=== PATIENT | male | born 1960 | race Caucasian/White ===

== ENCOUNTER → 2018-08-29 | Day surgery (SDC) | payer BC ==
[~2018-08-29] MED LIST: ATENOLOL50 MG PO; FENTANYL CITRATE/PF 100MCG/2 ML INJ ONE; GLUCAGON FOR INJ 1 MG VIAL ONE; HYOSCYAMINE 0.125 MG TAB ONE; LIDOCAINE HCL 2% LOCAL INJ 5 ML SDV VIAL INJ ONE; LISINOPRIL10 MG PO; MIDAZOLAM HCL 2 MG/2 ML VIAL ONE; NEXIUM40 MG PO; NORCO 5-325 TA1 EACH PO; PREVACID30 MG PO; PROPOFOL IV EMULSION 10 MG/ML 20 ML VIAL ONE; TYLENOL # 31 EA PO
--- OUTSIDE RECORDS SUMMARY | 2018-08-29 11:58 | XMS REPORT | Continuity of Care Document ---
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 Role Phone [employer] Information [employer] Unavailable Unavailable Problems Problem Status Onset Date Classification Date Reported Comments Source UNK Active 07/19/2018 [facility] CHOLELITHIASIS WITH ACUTE ON CHRONIC CHO Active 07/19/2018 [facility] R10.11 - RIGHT UPPER QUADRANT PAIN Active 07/18/2018 [facility] [place] M25.50 - PAIN IN UNSPECIFIED JOINT Active 03/03/2016 [facility] [place] 720.2 - SACROILIITIS NE Active 10/17/2014 [facility] [place] Bronchitis Resolved Problem 08/19/2018 [facility] [place] GERD (Confirmed) Active Problem 08/19/2018 [facility] [place],[facility], [facility] Hypertension Active Problem 08/19/2018 [facility] [place] Pneumonia Resolved Problem 08/19/2018 [facility] [place],[facility] Medications Medication Details Route Status Patient Instructions Ordering Provider Order Date Source Atenolol 25 MG Oral Tablet 25 mg=1 tab, PO, Daily, 0 Refill(s) Active 07/24/2018 [facility] Miralax 17 gm, 1 pkt, Route: PO, Drug form: PWDR, BID, Dosing Weight 115.938, kg, Start date: 07/24/18 9:00:00 CDT, Duration: 30 day, Stop date: 08/22/18 17:00:00 CDTNotes: Dissolve in 8 oz of water or juice. (Same as: Miralax) Inactive 07/24/2018 [facility] Zosyn 3.375 gm, Route: IVPB, ABXQ8H, Dosing Weight 115.938, kg, CrCl >=20 ml/min infuse over 4 hours, Start date: 07/23/18 23:00:00 CDT, Duration: 5 day, Stop date: 07/28/18 15:00:00 CDT, ABX Indication: Surgical ProphylaxisNotes: (Same as: Zosyn) Dosing based on Piperacillin component MEDICATION WASTE Product Size: 3375 mg Product Wasted: ___ mg No Longer Active 07/24/2018 [facility] Atenolol 25 mg, 1 tab, Route: PO, Drug form: TAB, Daily, Dosing Weight 115.938, kg, Start date: 07/22/18 9:00:00 CDT, Duration: 30 day, Stop date: 08/20/18 9:00:00 CDTNotes: (Same As:Tenormin) No Longer Active 07/22/2018 [facility] Acetaminophen 650 mg, 2 tab, Route: PO, Drug form: TAB, Q6H, Dosing Weight 115.938, kg, PRN Pain 1-3/Temp > 100.4 F, Start date: 07/22/18 5:55:00 CDT, Duration: 30 day, Stop date: 08/21/18 5:54:00 CDTNotes: Do not exceed 4 gm/day. (Same as: Tylenol) No Longer Active 07/22/2018 [facility] ketOROLAC 30 mg/mL injectable solution 30 mg, 1 mL, Route: IVP, Drug form: INJ, Q6H, Dosing Weight 115.938, kg, PRN Pain Score 4-6, Start date: 07/22/18 5:53:00 CDT, Duration: 4 day, Stop date: 07/26/18 5:52:00 CDTNotes: (Same as:Toradol) IV bolus must be given >15 seconds. Give IM administration slowly and deeply into the muscle. Not for use > 4 days MEDICATION WASTE Product Size: 30 mg Product Wasted: ___ mg No Longer Active 07/22/2018 [facility] Famotidine 20 mg, 1 tab, Route: PO, Drug form: TAB, Q12H, Dosing Weight 115.938, kg, Start date: 07/21/18 21:00:00 CDT, Duration: 30 day, Stop date: 08/20/18 9:00:00 CDTNotes: (Same as: Pepcid) No Longer Active 07/22/2018 [facility] Lisinopril 40 mg, 2 tab, Route: PO, Drug form: TAB, Daily, Dosing Weight 115.938, kg, Priority: NOW, Start date: 07/21/18 19:52:00 CDT, Duration: 30 day, Stop date: 08/20/18 9:00:00 CDTNotes: (Same as: Prinivil, Zestril) No Longer Active 07/22/2018 [facility] Dilaudid 0.5 mg, 0.5 mL, Route: IVP, Drug form: INJ, Q2H, Dosing Weight 115.938, kg, PRN Pain Score 7-10, Start date: 07/21/18 18:00:00 CDT, Duration: 30 day, Stop date: 08/20/18 17:59:00 CDTNotes: Same as: Dilaudid No Longer Active 07/21/2018 [facility] Zosyn 3.375 gm, Route: IVPB, ABXQ8H, Dosing Weight 115.938, kg, CrCl >=20 ml/min infuse over 4 hours, Start date: 07/21/18 15:00:00 CDT, Duration: 1 day, Stop date: 07/22/18 7:00:00 CDT, ABX Indication: Surgical ProphylaxisNotes: (Same as: Zosyn) Dosing based on Piperacillin component MEDICATION WASTE Product Size: 3375 mg Product Wasted: ___ mg No Longer Active 07/21/2018 [facility] Acetaminophen 21.7 MG/ML / Hydrocodone Bitartrate 0.5 MG/ML Oral Solution 15 mL, Route: PO, Drug Form: SOLN, Dosing Weight 115.938, kg, Q4H, PRN Pain Score 4-6, Start date: 07/21/18 14:47:00 CDT, Duration: 30 day, Stop date: 08/20/18 14:46:00 CDTNotes: Do not exceed 4gm/day of acetaminophen. (Same as: [place] 325/7.5) No Longer Active 07/21/2018 [facility] Ondansetron 4 mg, 2 mL, Route: IVP, Drug form: INJ, Q12H, Dosing Weight 115.938, kg, PRN Nausea & Vomiting, Start date: 07/21/18 14:47:00 CDT, Duration: 30 day, Stop date: 08/20/18 14:46:00 CDTNotes: (Same as: Gagan) MEDICATION WASTE Product Size: 4 mg Product Wasted: ___ mg No Longer Active 07/21/2018 [facility] Calcium Chloride 0.0014 MEQ/ML / Potassium Chloride 0.004 MEQ/ML / Sodium Chloride 0.103 MEQ/ML / Sodium Lactate 0.028 MEQ/ML Injectable Solution 1,000 mL, Rate: 125 ml/hr, Infuse over: 8 hr, Route: IV, Dosing Weight 115.938 kg, Total Volume: 1,000, Start date: 07/21/18 14:47:00 CDT, Duration: 30 day, Stop date: 08/20/18 14:46:00 CDT, 2.4, m2 No Longer Active 07/21/2018 [facility] glycopyrrolate (ANES) Route: IV, Drug form: INJ, ONCE, Stop date: 07/21/18 14:17:00 CDT Inactive 07/21/2018 [facility] neostigmine (ANES) Route: IV, Drug form: INJ, ONCE, Stop date: 07/21/18 14:17:00 CDT Inactive 07/21/2018 [facility] Ondansetron 4 mg, Route: IVP, ONCE, Dosing Weight 115.938, kg, PRN Nausea & Vomiting, Start date: 07/21/18 13:38:00 CDT Inactive 07/21/2018 [facility] Flumazenil 0.2 mg, Route: IVP, PRN, Dosing Weight 115.938, kg, PRN Benzodiazepine Reversal, Initial dose, Start date: 07/21/18 13:38:00 CDT, Duration: 30 day, Stop date: 08/20/18 13:37:00 CDT Inactive 07/21/2018 [facility] Naloxone 0.4 mg, Route: IVP, Q2MIN, Dosing Weight 115.938, kg, PRN Narcotic Reversal, Start date: 07/21/18 13:38:00 CDT, Duration: 8 doses or times, Stop date: Limited # of times Inactive 07/21/2018 [facility] Hydromorphone 0.5 mg, Route: IVP, Q5Min, Dosing Weight 115.938, kg, PRN Pain Score 7-10, Start date: 07/21/18 13:38:00 CDT, Duration: 4 doses or times, Stop date: Limited # of times Inactive 07/21/2018 [facility] Fentanyl 25 microgram, Route: IVP, Q5Min, Dosing Weight 115.938, kg, PRN Pain Score 4-6, Priority: Routine, Start date: 07/21/18 13:38:00 CDT, Duration: 4 doses or times, Stop date: Limited # of times Inactive 07/21/2018 [facility] phenylephrine (ANES) Route: IV, Drug form: INJ, ONCE, Stop date: 07/21/18 13:13:00 CDT Inactive 07/21/2018 [facility] metoprolol (ANES) Route: IV, Drug form: INJ, ONCE, Stop date: 07/21/18 11:43:00 CDT Inactive 07/21/2018 [facility] ceFAZolin (ANES) Route: IV, Drug form: INJ, ONCE, Stop date: 07/21/18 11:33:00 CDT Inactive 07/21/2018 [facility] dexamethasone (ANES) Route: IV, Drug form: INJ, ONCE, Stop date: 07/21/18 11:33:00 CDT Inactive 07/21/2018 [facility] fentaNYL (ANES) Route: IV, Drug form: INJ, ONCE, Stop date: 07/21/18 11:22:00 CDT Inactive 07/21/2018 [facility] propofol (ANES) Route: IV, Drug form: INJ, ONCE, Stop date: 07/21/18 11:22:00 CDT Inactive 07/21/2018 [facility] rocuronium (ANES) Route: IV, Drug form: INJ, ONCE, Stop date: 07/21/18 11:22:00 CDT Inactive 07/21/2018 [facility] midazolam (ANES) Route: IV, Drug form: SOLN, ONCE, Stop date: 07/21/18 11:22:00 CDT Inactive 07/21/2018 [facility] Lactated Ringers Injection IV (ANES) 1000 mL Route: IV, Total Volume: 1,000, Start date: 07/21/18 10:10:00 CDT, Stop date: 07/21/18 11:10:00 CDT Inactive 07/21/2018 [facility] 72 HR Scopolamine 0.0139 MG/HR Transdermal Patch 1 patch, Route: TOP, Drug Form: ERFILM, Dosing Weight 115.938, kg, ONCE, Start date: 07/21/18 10:10:00 CDT, Stop date: 07/21/18 10:10:00 CDT Inactive 07/21/2018 [facility] Calcium Chloride 0.0014 MEQ/ML / Potassium Chloride 0.004 MEQ/ML / Sodium Chloride 0.103 MEQ/ML / Sodium Lactate 0.028 MEQ/ML Injectable Solution 1,000 mL, Rate: 25 ml/hr, Infuse over: 40 hr, Route: IV, Dosing Weight 115.938 kg, Total Volume: 1,000, Start date: 07/21/18 10:09:00 CDT, Duration: 30 day, Stop date: 08/20/18 10:08:00 CDT, 2.4, m2 Inactive 07/21/2018 [facility] Nexium PO, Daily, 0 Refill(s) Active 07/20/2018 [facility] lisinopril 40 mg oral tablet 40 mg=1 tab, PO, Daily, 0 Refill(s) Active 07/20/2018 [facility] Atenolol 25 MG Oral Tablet 25 mg=1 tab, PO, Daily, 0 Refill(s) Active 07/20/2018 [facility] Allergies, Adverse Reactions, Alerts Substance Category Reaction Severity Reaction type Status Date Reported Comments Source No Known Medication Allergies Assertion Drug allergy [facility] Immunizations No Data Provided for This Section Results Order Name Results Value Reference Range Date Interpretation Comments Source CHEM PANEL Calcium Lvl 8.4 8.5 - 10.5 07/24/2018 [facility] CHEM PANEL Total Protein 6.8 6.4 - 8.4 07/24/2018 [facility] CHEM PANEL Albumin Lvl 2.3 3.5 - 5.0 07/24/2018 [facility] CHEM PANEL eGFR 87 07/24/2018 Result Comment: The eGFR is calculated using the CKD-EPI formula. In most young, healthy individuals the eGFR will be >90 mL/min/1.73m2. The eGFR declines with age. An eGFR of 60-89 may be normal in some populations, particularly the elderly, for whom the CKD-EPI formula has not been extensively validated. Use of the eGFR is not recommended in the following populations:

Individuals with unstable creatinine concentrations, including patients and those with serious co-morbid conditions.

Patients with extremes in muscle mass or diet.

The data above are obtained from the National Kidney Disease Education Program (NKDEP) which additionally recommends that when the eGFR is used in patients with extremes of body mass index for purposes of drug dosing, the eGFR should be multiplied by the estimated BMI. [facility] CHEM PANEL Globulin 4.5 2.7 - 4.2 07/24/2018 [facility] CHEM PANEL AGAP 11.0 10.0 - 20.0 07/24/2018 [facility] CHEM PANEL B/C Ratio 19 6 - 25 07/24/2018 [facility] CHEM PANEL A/G Ratio 0.5 0.7 - 1.6 07/24/2018 [facility] CHEM PANEL ALT 88 0 - 65 07/24/2018 [facility] CHEM PANEL AST 25 0 - 37 07/24/2018 [facility] CHEM PANEL Alk Phos 96 39 - 136 07/24/2018 [facility] CHEM PANEL Bili Total 1.1 0.2 - 1.3 07/24/2018 [facility] CHEM PANEL Sodium Lvl 144 135 - 145 07/24/2018 [facility] CHEM PANEL Potassium Lvl 4.0 3.5 - 5.1 07/24/2018 [facility] CHEM PANEL BUN 18 7 - 22 07/24/2018 [facility] CHEM PANEL Creatinine Lvl 0.97 0.50 - 1.40 07/24/2018 [facility] CHEM PANEL Glucose Lvl 103 70 - 99 07/24/2018 [facility] CHEM PANEL Chloride Lvl 107 95 - 109 07/24/2018 [facility] CHEM PANEL CO2 30 24 - 32 07/24/2018 [facility] HEMATOLOGY MCHC 32.7 32.0 - 36.0 07/24/2018 [facility] HEMATOLOGY MCV 90.4 80.0 - 94.0 07/24/2018 [facility] HEMATOLOGY RDW 13.0 11.5 - 14.5 07/24/2018 [facility] HEMATOLOGY MCH 29.6 27.0 - 31.0 07/24/2018 [facility] HEMATOLOGY Hct 36.9 42.0 - 54.0 07/24/2018 [facility] HEMATOLOGY RBC 4.08 4.70 - 6.10 07/24/2018 [facility] HEMATOLOGY Hgb 12.1 14.0 - 18.0 07/24/2018 [facility] HEMATOLOGY MPV 8.9 7.4 - 10.4 07/24/2018 [facility] HEMATOLOGY Platelet 216 133 - 450 07/24/2018 [facility] HEMATOLOGY WBC 17.1 3.7 - 10.4 07/24/2018 [facility] CHEM PANEL eGFR 97 07/23/2018 Result Comment: The eGFR is calculated using the CKD-EPI formula. In most young, healthy individuals the eGFR will be >90 mL/min/1.73m2. The eGFR declines with age. An eGFR of 60-89 may be normal in some populations, particularly the elderly, for whom the CKD-EPI formula has not been extensively validated. Use of the eGFR is not recommended in the following populations:

Individuals with unstable creatinine concentrations, including patients and those with serious co-morbid conditions.

Patients with extremes in muscle mass or diet.

The data above are obtained from the National Kidney Disease Education Program (NKDEP) which additionally recommends that when the eGFR is used in patients with extremes of body mass index for purposes of drug dosing, the eGFR should be multiplied by the estimated BMI. [facility] CHEM PANEL A/G Ratio 0.6 0.7 - 1.6 07/23/2018 [facility] CHEM PANEL Globulin 4.3 2.7 - 4.2 07/23/2018 [facility] CHEM PANEL B/C Ratio 23 6 - 25 07/23/2018 [facility] CHEM PANEL AGAP 9.5 10.0 - 20.0 07/23/2018 [facility] CHEM PANEL Bili Total 1.1 0.2 - 1.3 07/23/2018 [facility] CHEM PANEL Alk Phos 104 39 - 136 07/23/2018 [facility] CHEM PANEL AST 31 0 - 37 07/23/2018 [facility] CHEM PANEL ALT 110 0 - 65 07/23/2018 [facility] CHEM PANEL Albumin Lvl 2.5 3.5 - 5.0 07/23/2018 [facility] CHEM PANEL Total Protein 6.8 6.4 - 8.4 07/23/2018 [facility] CHEM PANEL Calcium Lvl 8.3 8.5 - 10.5 07/23/2018 [facility] CHEM PANEL CO2 31 24 - 32 07/23/2018 [facility] CHEM PANEL Chloride Lvl 103 95 - 109 07/23/2018 [facility] CHEM PANEL Potassium Lvl 3.5 3.5 - 5.1 07/23/2018 [facility] CHEM PANEL Glucose Lvl 120 70 - 99 07/23/2018 [facility] CHEM PANEL Sodium Lvl 140 135 - 145 07/23/2018 [facility] CHEM PANEL Creatinine Lvl 0.84 0.50 - 1.40 07/23/2018 [facility] CHEM PANEL BUN 19 7 - 22 07/23/2018 [facility] HEMATOLOGY Eosinophils 0.2 0.0 - 4.0 07/23/2018 [facility] HEMATOLOGY Monocytes 5.8 2.0 - 12.0 07/23/[address] [facility] Segs 85.5 45.0 - 75.0 07/23/[address] [facility] Neutrophils # 16.6 1.5 - 8.1 07/23/[address] [facility] Lymphocytes 8.2 20.0 - 40.0 07/23/[address] [facility] Basophils # 0.1 0.0 - 0.2 07/23/[address] [facility] Basophils 0.3 0.0 - 1.0 07/23/[address] [facility] Monocytes # 1.1 0.0 - 0.8 07/23/[address] [facility] Lymphocytes # 1.6 1.0 - 5.5 07/23/[address] [facility] Hgb 12.7 14.0 - 18.0 07/23/[address] [facility] WBC 19.4 3.7 - 10.4 07/23/[address] [facility] Hct 38.3 42.0 - 54.0 07/23/[address] [facility] RBC 4.31 4.70 - 6.10 07/23/[address] [facility] MCH 29.5 27.0 - 31.0 07/23/[address] [facility] MCV 88.8 80.0 - 94.0 07/23/[address] [facility] MPV 8.5 7.4 - 10.4 07/23/[address] [facility] Platelet 193 133 - 450 07/23/[address] [facility] RDW 13.1 11.5 - 14.5 07/23/[address] [facility] MCHC 33.2 32.0 - 36.0 07/23/2018 [facility] CHEM PANEL eGFR 94 07/22/2018 Result Comment: The eGFR is calculated using the CKD-EPI formula. In most young, healthy individuals the eGFR will be >90 mL/min/1.73m2. The eGFR declines with age. An eGFR of 60-89 may be normal in some populations, particularly the elderly, for whom the CKD-EPI formula has not been extensively validated. Use of the eGFR is not recommended in the following populations:

Individuals with unstable creatinine concentrations, including patients and those with serious co-morbid conditions.

Patients with extremes in muscle mass or diet.

The data above are obtained from the National Kidney Disease Education Program (NKDEP) which additionally recommends that when the eGFR is used in patients with extremes of body mass index for purposes of drug dosing, the eGFR should be multiplied by the estimated BMI. [facility] CHEM PANEL AST 231 0 - 37 07/22/2018 [facility] CHEM PANEL Alk Phos 161 39 - 136 07/22/2018 [facility] CHEM PANEL Bili Total 1.5 0.2 - 1.3 07/22/2018 [facility] CHEM PANEL Calcium Lvl 8.1 8.5 - 10.5 07/22/2018 [facility] CHEM PANEL Total Protein 7.2 6.4 - 8.4 07/22/2018 [facility] CHEM PANEL Albumin Lvl 3.2 3.5 - 5.0 07/22/2018 [facility] CHEM PANEL Creatinine Lvl 0.91 0.50 - 1.40 07/22/2018 [facility] CHEM PANEL Sodium Lvl 140 135 - 145 07/22/2018 [facility] CHEM PANEL Potassium Lvl 3.7 3.5 - 5.1 07/22/2018 [facility] CHEM PANEL Chloride Lvl 103 95 - 109 07/22/2018 [facility] CHEM PANEL CO2 28 24 - 32 07/22/2018 [facility] CHEM PANEL Glucose Lvl 135 70 - 99 07/22/2018 [facility] CHEM PANEL BUN 11 7 - 22 07/22/2018 [facility] CHEM PANEL ALT 295 0 - 65 07/22/2018 [facility] CHEM PANEL A/G Ratio 0.8 0.7 - 1.6 07/22/2018 [facility] CHEM PANEL AGAP 12.7 10.0 - 20.0 07/22/2018 [facility] CHEM PANEL B/C Ratio 12 6 - 25 07/22/2018 [facility] CHEM PANEL Globulin 4.0 2.7 - 4.2 07/22/2018 [facility] HEMATOLOGY Monocytes # 1.1 0.0 - 0.8 07/22/[address] [facility] Lymphocytes # 1.6 1.0 - 5.5 07/22/[address] [facility] Segs 83.7 45.0 - 75.0 07/22/[address] [facility] Lymphocytes 9.6 20.0 - 40.0 07/22/[address] [facility] Basophils 0.1 0.0 - 1.0 07/22/[address] [facility] Neutrophils # 14.1 1.5 - 8.1 07/22/[address] [facility] Monocytes 6.6 2.0 - 12.0 07/22/[address] [facility] MCHC 33.1 32.0 - 36.0 07/22/[address] [facility] RDW 12.9 11.5 - 14.5 07/22/[address] [facility] MPV 8.8 7.4 - 10.4 07/22/[address] [facility] Platelet 234 133 - 450 07/22/[address] [facility] MCV 88.8 80.0 - 94.0 07/22/[address] [facility] Hgb 14.5 14.0 - 18.0 07/22/[address] [facility] RBC 4.94 4.70 - 6.10 07/22/[address] [facility] WBC 16.8 3.7 - 10.4 07/22/[address] [facility] Hct 43.9 42.0 - 54.0 07/22/[address] [facility] MCH 29.4 27.0 - 31.0 07/22/2018 [facility] Pathology Reports No Data Provided for This Section Diagnostic Reports Report Value Date Source Chest 2 views DX EXAM: XR CHEST 2 VIEWS DATE: 08/17/2018 9:48 CDT INDICATION: - K44.9 Diaphragmatic hernia without obstruction or gangrene COMPARISON: 07/24/2018 TECHNIQUE: PA and lateral chest radiographs FINDINGS: Left lower lobe pneumonia and small left pleural effusion have resolved. No lung parenchymal or pleural abnormalities are seen. Saundra and pulmonary vasculature are normal. Cardiomediastinal silhouette is normal in appearance. No acute bony abnormality is identified. Multilevel spondylosis is seen in the thoracic spine. IMPRESSION: No acute cardiopulmonary abnormality. Resolution of left lower lobe pneumonia and small left pleural effusion. 08/17/2018 [facility] Chest 2 views DX Clinical Indication: - r/o abnormalities Comparison: None FINDINGS: PA and lateral chest radiographs were obtained. MEDIASTINUM: The cardiac silhouette is normal in size. The aorta is unremarkable. LUNGS: Lung volumes are maintained. The left lung demonstrates opacity in the retrocardiac region which is overlying the spine on lateral view. The right lung is clear. There are no pneumothoraces. There is blunting left costophrenic angle. BONES: The visualized osseous structures are unremarkable. IMPRESSION: Left lower lobe infiltrate and small left effusion. SL: [id number] 07/24/2018 [facility] Abdomen AP DX Clinical Indication: - r/o abnormalities Comparison: None FINDINGS: The AP supine view of the abdomen shows a non-obstructive bowel gas pattern. There is no abnormal dilatation of bowel loops. There is no pneumatosis or mass effect. There is no gross evidence for pneumoperitoneum. There are no radiopaque densities noted. There are no clinically significant osseous abnormalities noted. There are skin pavel noted in the bilateral lower quadrants, epigastrium, and bilateral flank. There are surgical clips in the gallbladder fossa. IMPRESSION: 1. Unremarkable abdomen. SL: [id number] 07/24/2018 [facility] RUQ US EXAM: US ABDOMEN RIGHT UPPER QUADRANT INDICATION: - R10.11 Right upper quadrant pain COMPARISON: 01/08/2012 TECHNIQUE: Multiplanar grayscale and color Doppler ultrasound of the right upper quadrant of the abdomen. FINDINGS: Liver: Craniocaudal length: 15.6 cm. Echogenicity: Unremarkable Surface: Unremarkable Mass: None. Portal vein: Hepatopetal in flow. Unremarkable in size. Gallbladder: A few shadowing gallstones are seen. Wall Thickness: 0.5 cm. Pericholecystic fluid: None. Sonographic Luna sign: Positive Bile ducts: Common bile duct : 0.6 cm. Intrahepatic ducts: Unremarkable Pancreas: Not adequately seen Right kidney: Size: 10.4 x 5.3 x 6.4 cm. Cortical thickness measures 2.2 cm. Hydronephrosis: None. Echogenicity: Unremarkable Calculi/Cysts/Masses: None. Ascites: None. IMPRESSION: 1. Cholelithiasis with gallbladder wall thickening and positive sonographic Luna's sign. However, no biliary duct dilation. Correlate for cholecystitis. 07/19/2018 [facility] Brain wo contrast CT EXAM: CT BRAIN DATE: 12/18/2016 at 10:00 CLINICAL INFORMATION: - R51 Headache COMPARISON: None TECHNIQUE: Axial images of the brain were obtained from the skull base through the vertex without contrast material administration. DLP: 654.34 mGycm DISCUSSION: Hypodensities in the supratentorial white matter consistent with small vessel disease. No acute hemorrhage, hydrocephalus or midline shift. Paranasal sinuses and mastoid air cells are clear. No acute bony lesions. IMPRESSION: Small vessel disease. No acute intracranial abnormality 12/18/2016 [facility] Spine lumbar wo contrast MRI MRI LUMBAR SPINE WITHOUT CONTRAST 03/04/2016 8:12 AM [facility] COMPARISON: 08/08/2014 radiograph exam. TECHNIQUE: Sagittal T1, sagittal T2 with fat saturation, axial T1 and axial T2 images were obtained. No intravenous gadolinium was given. FINDINGS: Lumbosacral junction transitional vertebra is identified, and is labeled as 'S1'. Please see the sagittal images for the numbering system used. . The conus medullaris terminates at the L1-L2 level. T11-T12 moderate ligamenta flava redundancy with mild central canal stenosis are present. T12-L1: Unremarkable. L1-L2: Right anterolateral osteophytes. No central canal or foraminal stenosis. L2-L3: Disc desiccation with 3 mm disc bulge and posterior annular fissure. Mild central canal stenosis. Mild left foraminal stenosis. The lateral extraforaminal disc osteophyte complexes are present. No significant mass effect on exiting nerve roots L3-L4: 3.9 mm shallow central disc protrusion is present with mild to moderate thecal sac stenosis, which measures 7.8 mm in AP dimension. Mild bilateral foraminal stenosis due to disc osteophyte complex encroachment is present. L4-L5: Approximately 2 mm disc bulge with mild central canal stenosis. Moderate left foraminal stenosis and mild right foraminal stenosis due to disc osteophyte complex encroachment, with mild mass effect on the left L4 exiting nerve root. L5-S1: 3 mm posterior disc osteophyte complex without significant thecal sac stenosis. Moderate bilateral foraminal stenosis due to bilateral foraminal and extraforaminal osteophytes with mild mass effect on the bilateral L5 exiting nerve roots. Gallstone is present within the gallbladder neck. IMPRESSION: 1. Cholelithiasis. 2. Lumbosacral junction transitional vertebra is identified, and is labeled as 'S1'. Please see the sagittal images for the numbering system used. 3. L2-L3 mild central canal stenosis and mild left foraminal stenosis. 4. L3-L4 central disc protrusion with mild to moderate central canal stenosis. Mild bilateral foraminal stenosis. 5. L4-L5 mild central canal stenosis and moderate left foraminal stenosis with mild mass effect on left L4 nerve root. 5. L5-S1 moderate bilateral foraminal stenosis with mild mass effect on bilateral L5 nerve roots. Findings were called to Dr. Aaron on 03/04/2016 11:42 AM HAT [employer]ESSER. 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 There is a symmetric appearance of the joints. 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 Small anterior implant osteophytes are seen at multiple levels. AP alignment is normal and vertebral body heights are maintained. No pars fracture is evident on radiograph. IMPRESSION: Degenerative change as above. 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 FINDINGS: No fracture is seen. Alignment is normal. Joint spaces are maintained. No evidence of osseous erosion or soft tissue edema. IMPRESSION: No acute abnormality. 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 FINDINGS: Calcaneal enthesophytes are noted bilaterally. There is no evidence of fracture or malalignment. No soft tissue edema is seen. There is minimal joint space narrowing of the bilateral first MTP joint. IMPRESSION: No acute abnormality. 08/08/2014 MIGUELITO Sue Consultation Notes No Data Provided for This Section Discharge Summaries No Data Provided for This Section History and Physicals No Data Provided for This Section Vital Signs Vital Sign Value Date Comments Source Systolic (mm Hg) 151 07/24/2018 [facility] Diastolic (mm Hg) 83 07/24/2018 [facility] Heart Rate 105 07/24/2018 [facility] Temperature Oral (F) 98.8 F 07/24/2018 [facility] Respitory Rate 18 07/24/2018 [facility] Respitory Rate 16 07/24/2018 [facility] Respitory Rate 18 07/24/2018 [facility] Temperature Oral (F) 99.3 F 07/24/2018 [facility] Heart Rate 112 07/24/2018 [facility] Systolic (mm Hg) 146 07/24/2018 [facility] Diastolic (mm Hg) 90 07/24/2018 [facility] Systolic (mm Hg) 139 07/24/2018 [facility] Diastolic (mm Hg) 84 07/24/2018 [facility] Heart Rate 120 07/24/2018 [facility] Temperature Oral (F) 99.8 F 07/24/2018 [facility] BMI Calculated 37.75 07/20/2018 [facility] Weight 115.938 07/20/2018 [facility] Height 175.26 cm 07/20/2018 [facility] Encounters Location Location Details Encounter Type Encounter Number Reason For Visit Attending Provider ADM Date DC Date Status Source [facility] [place] [facility] [id number] Madhuri Gaston 08/08/2014 08/09/2014 [facility] [place] [facility] [place] [facility] [id number] Robert Aaron 03/04/2016 03/05/2016 [facility] [place] [facility] [place] [facility] [id number] Adelfo Luna 12/18/2016 12/19/2016 [facility] [facility] [place] [facility] [id number] Vianney Desai 07/19/2018 07/20/2018 [facility] [facility] Observation [id number] Anuj Vera 07/21/2018 07/24/2018 [facility] [place] [facility] [id number] Robert Aaron 08/17/2018 08/18/2018 [facility] [place] Procedures No Data Provided for This Section Assessment and Plan Assessment and Plan Date Source Extracted from:Title: Surgery Staff Note Author: Anuj Vera DO Date: 07/24/18 Discharge Summary [facility] Completed: Jul, 09:59 by Anuj Vera DO RM: [address] - [address]W, [address] C2B TAL MCKINLEY 57y (: 1960) M Attending: Anuj Vera DO Service: Surgery Reason for Admission: CHOLELITHIASIS WITH ACUTE ON CHRONIC CHOLANGITIS Working DRG: Code status: Full Code Current diet: Isolation: No Isolation/Standard Precautions Allergies: No Known Medication Allergies Brief hospital course Pt admitted PO Lap Traci 07/21/2018 Pt had PO fevers, Elevated WBC and cough. POD#2 cough persisted; CXR + KUB ordered. See below. Today he is w/o complaints, tolerating regular diet, labs [wbc and LFTs] are trending down, he is cleared for d/c home. 24hr Labs 07/24 0632 Sodium Lvl 144 Potassium Lvl 4.0 Chloride Lvl 107 CO2 30 AGAP 11.0 Glucose Lvl 103 H Creatinine Lvl 0.97 BUN 18 B/C Ratio 19 Total Protein 6.8 Albumin Lvl 2.3 L Globulin 4.5 H A/G Ratio 0.5 L Calcium Lvl 8.4 L ALT 88 H AST 25 Alk Phos 96 Bili Total 1.1 eGFR 87 WBC 17.1 H RBC 4.08 L Hgb 12.1 L Hct 36.9 L MCV 90.4 MCH 29.6 MCHC 32.7 RDW 13.0 Platelet 216 MPV 8.9 07/23 1736 Sodium Lvl 140 Potassium Lvl 3.5 Chloride Lvl 103 CO2 31 AGAP 9.5 L Glucose Lvl 120 H Creatinine Lvl 0.84 BUN 19 B/C Ratio 23 Total Protein 6.8 Albumin Lvl 2.5 L Globulin 4.3 H A/G Ratio 0.6 L Calcium Lvl 8.3 L ALT 110 H AST 31 Alk Phos 104 Bili Total 1.1 eGFR 97 WBC 19.4 H RBC 4.31 L Hgb 12.7 L Hct 38.3 L MCV 88.8 MCH 29.5 MCHC 33.2 RDW 13.1 Platelet 193 MPV 8.5 Segs 85.5 H Monocytes 5.8 Lymphocytes 8.2 L Eosinophils 0.2 Basophils 0.3 Neutrophils # 16.6 H Lymphocytes # 1.6 Monocytes # 1.1 H Basophils # 0.1 07/23 1637 POC Performing Locatio See Note Glucose POC 119 H 07/23 1159 POC Performing Locatio See Note Glucose POC 145 H Result type: Abdomen AP DX Result date: 07/24/2018 03:26 CDT Result status: Modified Result title: ABDOMEN AP DX Performed by: Tavon Hernandez MD on 07/24/2018 03:30 CDT Signed by: Tavon Hernandez MD on 07/24/2018 03:31 CDT Encounter info: [id number], [facility], Observation, 07/21/2018 - * Final Report * Reason For Exam Radiology Report Clinical Indication: - r/o abnormalities Comparison: None FINDINGS: The AP supine view of the abdomen shows a non-obstructive bowel gas pattern. There is no abnormal dilatation of bowel loops. There is no pneumatosis or mass effect. There is no gross evidence for pneumoperitoneum. There are no radiopaque densities noted. There are no clinically significant osseous abnormalities noted. There are skin pavel noted in the bilateral lower quadrants, epigastrium, and bilateral flank. There are surgical clips in the gallbladder fossa. IMPRESSION: 1. Unremarkable abdomen. SL: [id number] Signature Line - - Read by: Tavon Hernandez MD Dictated Date/time: 07/24/18 03:30 Electronically Signed by: Tavon Hernandez MD 07/24/18 03:31 FINAL REPORT URL This document has an image Vitals Tmp(F) Pulse BP RR SpO2 FIO2 07/24 08:18 98.8 105 151/83 18 92 --- 07/24 07:08 ---- --- ----- 16 93 --- 07/24 03:44 99.3 112 146/90 18 92 --- 07/23 23:43 99.8 120 139/84 18 92 --- 07/23 20:22 ---- --- ----- 14 93 21% 24 Hr Tmax: 99.8F (37.67c) at 07/23 23:43 Vital Signs are the last 5 in the past 48 hours. Date Wt(kg) Wt(lb) Ht(cm) Ht(in) Method 07/20 (initial) 115.94 255.06 Measured 06/12 175.26 69.00 Stated I&O Record In Out Bal 07/23 24hr Tot 122 0 122 07/22 24hr Tot 637 700 -63 Medications (11) Active Scheduled Meds (5): 07/22/18 atenolol 25 mg PO Daily 07/21/18 famotidine 20 mg PO Q12H 07/21/18 lisinopril 40 mg PO Daily 07/23/18 piperacillin-tazobactam + Sodium Chloride 0.9% IV 100 mL (Zosyn + Sodium Chloride 0.9% IV 100 mL) 3.375 gm IVPB ABXQ8H 25 ml/hr 07/24/18 polyethylene glycol 3350 (MiraLax) 17 gm PO BID Unscheduled Meds: None PRN Meds (5): 07/21/18 acetaminophen-hydrocodone (acetaminophen-hydrocodone 325 mg-7.5 mg/15 mL oral solution) 15 mL PO Q4H 07/22/18 acetaminophen 650 mg PO Q6H 07/21/18 hydromorphone (Dilaudid) 0.5 mg IVP Q2H 07/22/18 ketOROLAC (ketOROLAC 30 mg/mL injectable solution) 30 mg IVP Q6H 07/21/18 ondansetron 4 mg IVP Q12H One Time Meds: None Continuous Infusions (1): 07/21/18 Lactated Ringers Injection IV 1,000 mL 1,000 mL 125 ml/hr ASSESSMENT and EXAM: S/P Lap Traci for Acute Cholecystitis CXR and KUB benign PLAN and TREATMENT Discharge Home Rx given Augmentin Toradol F/U Wednesday Extracted from:Title: Surgery Staff Note Author: Anuj Vera DO Date: 07/23/18 Progress Note - Daily [facility] Completed: Wednesday, JUL 23, 2018, 13:01 by Anuj Vera DO RM: [address], [address] TAL MCKINLEY 57y (: 1960) M Attending: Anuj Vera DO Service: Surgery Reason for Admission: CHOLELITHIASIS WITH ACUTE ON CHRONIC CHOLANGITIS Working DRG: Code status: Full Code Current diet: Isolation: No Isolation/Standard Precautions Allergies: No Known Medication Allergies SUBJECTIVE Feeling Better New onset Cough pain meds helpful but do not last. OBJECTIVE Gen: in NAD Abd: obese Skin: incisions c/d/i 24hr Labs 07/23 1159 POC Performing Locatio See Note Glucose POC 145 H 07/23 0816 POC Performing Locatio See Note Glucose POC 144 H Vitals Tmp(F) Pulse BP RR SpO2 FIO2 07/23 12:00 98.4 110 151/96 18 93 --- 07/23 08:16 ---- --- 134/94 18 92 --- 07/23 07:55 ---- --- ----- 16 92 --- 07/23 04:05 98.9 101 125/81 20 90 --- 07/22 23:29 98.6 96 129/77 20 92 --- 24 Hr Tmax: 100.2F (37.89c) at 07/22 23:24 Vital Signs are the last 5 in the past 48 hours. Date Wt(kg) Wt(lb) Ht(cm) Ht(in) Method 07/20 (initial) 115.94 255.06 Measured 07/20 175.26 69.00 Stated I&O Record In Out Bal 07/23 24hr Tot 2 0 2 07/22 24hr Tot 637 700 -63 Medications (9) Active Scheduled Meds (3): 07/22/18 atenolol 25 mg PO Daily 07/21/18 famotidine 20 mg PO Q12H 07/21/18 lisinopril 40 mg PO Daily Unscheduled Meds: None PRN Meds (5): 07/21/18 acetaminophen-hydrocodone (acetaminophen-hydrocodone 325 mg-7.5 mg/15 mL oral solution) 15 mL PO Q4H 07/22/18 acetaminophen 650 mg PO Q6H 07/21/18 hydromorphone (Dilaudid) 0.5 mg IVP Q2H 07/22/18 ketOROLAC (ketOROLAC 30 mg/mL injectable solution) 30 mg IVP Q6H 07/21/18 ondansetron 4 mg IVP Q12H One Time Meds: None Continuous Infusions (1): 07/21/18 Lactated Ringers Injection IV 1,000 mL 1,000 mL 125 ml/hr ASSESSMENT and EXAM POD#2 Lap Cholecystectomy PLAN and TREATMENT Afebrile x 24 hours. Last temp elevation: 100.3'F 0200 today Await labs 07/24/2018 [place] Plan of Care No Data Provided for This Section Social History Social History Date Source Social History TypeResponse Employment/School Status: Employed. Alcohol Current, Type Liquor. Frequency: 1-2 times per month. Last use: Jun, 2018. Smoking Status Current every day smoker; Type: snuff; Exposure to Tobacco Smoke None; Cigarette Smoking Last 365 Days Yes; Reg Smoking Cessation Counseling No entered on: 07/20/18 07/20/2018 MIGUELITO Sue Social History TypeResponse Employment/School Status: Employed. Alcohol Current, Type Liquor. Frequency: 1-2 times per month. Last use: Jun, 2018. Smoking Status Current every day smoker; Type: snuff; Exposure to Tobacco Smoke None; Cigarette Smoking Last 365 Days Yes; Reg Smoking Cessation Counseling No entered on: 07/20/18 07/20/2018 MIGUELITO Noel Social History TypeResponse Employment/School Status: Employed. Alcohol Current, Type Liquor. Frequency: 1-2 times per month. Last use: Jun, 2018. Smoking Status Current every day smoker; Type: snuff; Exposure to Tobacco Smoke None; Cigarette Smoking Last 365 Days Yes; Reg Smoking Cessation Counseling No entered on: 07/20/18 07/20/2018 [place] Family History No Data Provided for This Section Advance Directives No Data Provided for This Section Functional Status No Data Provided for This Section
--- OUTSIDE RECORDS SUMMARY | 2018-08-29 11:58 | XMS REPORT | Summary of Care ---
Author Author [facility] Organization [facility] Address Unknown Phone Unavailable Encounter NADIA Garcia(PETAR) [id number] Date(s): 07/21/18 - 07/24/18 [facility] [address] [place] [address]- [phone] Discharge Disposition: Home or Self Care Attending Physician: Anuj Vera DO Admitting Physician: Aunj Vera DO Referring Physician: Anuj Vera DO Vital Signs 1 2 3 Most recent to oldest [Reference Range]: 175.26 cm (07/20/18 12:34 PM) Height 98.8 DegF (07/24/18 8:18 AM) 99.3 DegF *HI* (07/24/18 3:44 AM) 99.8 DegF *HI* (07/23/18 11:43 PM) Temperature Oral [96.4-99.1 DegF] 151/83 mmHg *HI* (07/24/18 8:18 AM) 146/90 mmHg *HI* (07/24/18 3:44 AM) 139/84 mmHg (07/23/18 11:43 PM) Blood Pressure [90-140/60-90 mmHg] 18 BRMIN (07/24/18 8:18 AM) 16 BRMIN (07/24/18 7:08 AM) 18 BRMIN (07/24/18 3:44 AM) Respiratory Rate [14-20 BRMIN] 105 bpm *HI* (07/24/18 8:18 AM) 112 bpm *HI* (07/24/18 3:44 AM) 120 bpm *HI* (07/23/18 11:43 PM) Peripheral Pulse Rate [60-100 bpm] 115.938 kg (07/20/18 12:34 PM) Weight 37.75 m2 (07/20/18 12:34 PM) Body Mass Index Problem List Condition Effective Dates Status Health Status Informant Bronchitis(Confirmed Resolved ) GERD Active (gastroesophageal reflux disease)(Confirmed) Hypertension(Confirm Active ed) Pneumonia(Confirmed) Resolved Allergies, Adverse Reactions, Alerts No Known Medication Allergies Medications acetaminophen 650 mg, 2 tab, Route: PO, Drug form: TAB, Q6H, Dosing Weight 115.938, kg, PRN Pa in 1-3/Temp > 100.4 F, Start date: 07/22/18 5:55:00 CDT, Duration: 30 day, Stop date: 08/21/18 5:54:00 CDT Notes: Do not exceed 4 gm/day. (Same as: Tylenol) Start Date: 07/22/18 Stop Date: 07/24/18 Status: Discontinued acetaminophen-hydrocodone 325 mg-7.5 mg/15 mL oral solution 15 mL, Route: PO, Drug Form: SOLN, Dosing Weight 115.938, kg, Q4H, PRN Pain Scor e 4-6, Start date: 07/21/18 14:47:00 CDT, Duration: 30 day, Stop date: 08/20/18 14:46:00 CDT Notes: Do not exceed 4gm/day of acetaminophen. (Same as: [place] 325/7.5) Start Date: 07/21/18 Stop Date: 07/24/18 Status: Discontinued ANES fentaNYL 25 microgram, Route: IVP, Q5Min, Dosing Weight 115.938, kg, PRN Pain Score 4-6, Priority: Routine, Start date: 07/21/18 13:38:00 CDT, Duration: 4 doses or times , Stop date: Limited # of times Start Date: 07/21/18 Stop Date: 07/21/18 Status: Completed ANES flumazenil 0.2 mg, Route: IVP, PRN, Dosing Weight 115.938, kg, PRN Benzodiazepine Reversal, Initial dose, Start date: 07/21/18 13:38:00 CDT, Duration: 30 day, Stop date: 0 08/20/18 13:37:00 CDT Start Date: 07/21/18 Stop Date: 07/21/18 Status: Discontinued ANES HYDROmorphone 0.5 mg, Route: IVP, Q5Min, Dosing Weight 115.938, kg, PRN Pain Score 7-10, Start date: 07/21/18 13:38:00 CDT, Duration: 4 doses or times, Stop date: Limited # of times Start Date: 07/21/18 Stop Date: 07/21/18 Status: Completed ANES naloxone 0.4 mg, Route: IVP, Q2MIN, Dosing Weight 115.938, kg, PRN Narcotic Reversal, Sta rt date: 07/21/18 13:38:00 CDT, Duration: 8 doses or times, Stop date: Limited # of times Start Date: 07/21/18 Stop Date: 07/21/18 Status: Discontinued ANES ondansetron 4 mg, Route: IVP, ONCE, Dosing Weight 115.938, kg, PRN Nausea & Vomiting, Start date: 07/21/18 13:38:00 CDT Start Date: 07/21/18 Stop Date: 07/21/18 Status: Discontinued atenolol 25 mg, 1 tab, Route: PO, Drug form: TAB, Daily, Dosing Weight 115.938, kg, Start date: 07/22/18 9:00:00 CDT, Duration: 30 day, Stop date: 08/20/18 9:00:00 CDT Notes: (Same As:Tenormin) Start Date: 07/22/18 Stop Date: 07/24/18 Status: Discontinued atenolol 25 mg oral tablet 25 mg=1 tab, PO, Daily, 0 Refill(s) Start Date: 07/24/18 Status: Ordered atenolol 25 mg oral tablet 25 mg=1 tab, PO, Daily, 0 Refill(s) Start Date: 07/20/18 Status: Ordered ceFAZolin (ANES) Route: IV, Drug form: INJ, ONCE, Stop date: 07/21/18 11:33:00 CDT Start Date: 07/21/18 Stop Date: 07/21/18 Status: Completed dexamethasone (ANES) Route: IV, Drug form: INJ, ONCE, Stop date: 07/21/18 11:33:00 CDT Start Date: 07/21/18 Stop Date: 07/21/18 Status: Completed Dilaudid 0.5 mg, 0.5 mL, Route: IVP, Drug form: INJ, Q2H, Dosing Weight 115.938, kg, PRN Pain Score 7-10, Start date: 07/21/18 18:00:00 CDT, Duration: 30 day, Stop date: 08/20/18 17:59:00 CDT Notes: Same as: Dilaudid Start Date: 07/21/18 Stop Date: 07/24/18 Status: Discontinued famotidine 20 mg, 1 tab, Route: PO, Drug form: TAB, Q12H, Dosing Weight 115.938, kg, Start date: 07/21/18 21:00:00 CDT, Duration: 30 day, Stop date: 08/20/18 9:00:00 CDT Notes: (Same as: Pepcid) Start Date: 07/21/18 Stop Date: 07/24/18 Status: Discontinued fentaNYL (ANES) Route: IV, Drug form: INJ, ONCE, Stop date: 07/21/18 11:22:00 CDT Start Date: 07/21/18 Stop Date: 07/21/18 Status: Completed glycopyrrolate (ANES) Route: IV, Drug form: INJ, ONCE, Stop date: 07/21/18 14:17:00 CDT Start Date: 07/21/18 Stop Date: 07/21/18 Status: Completed ketOROLAC 30 mg/mL injectable solution 30 mg, 1 mL, Route: IVP, Drug form: INJ, Q6H, Dosing Weight 115.938, kg, PRN Clifford n Score 4-6, Start date: 07/22/18 5:53:00 CDT, Duration: 4 day, Stop date: 07/26 5:52:00 CDT Notes: (Same as:Toradol) IV bolus must be given >15 seconds. Give IM administration slowly and deeply into the muscle.Not for use > 4 days MEDICATION WASTE Product Size: 30 mgProduct Wasted: ___ mg Start Date: 07/22/18 Stop Date: 07/24/18 Status: Discontinued Lactated Ringers Injection IV (ANES) 1000 mL Route: IV, Total Volume: 1,000, Start date: 07/21/18 10:10:00 CDT, Stop date: 11:10:00 CDT Start Date: 07/21/18 Stop Date: 07/21/18 Status: Completed Lactated Ringers Injection IV 1,000 mL 1,000 mL, Rate: 125 ml/hr, Infuse over: 8 hr, Route: IV, Dosing Weight 115.938 k g, Total Volume: 1,000, Start date: 07/21/18 14:47:00 CDT, Duration: 30 day, Sto p date: 08/20/18 14:46:00 CDT, 2.4, m2 Start Date: 07/21/18 Stop Date: 07/24/18 Status: Discontinued Lactated Ringers Injection IV 1000 mL 1,000 mL, Rate: 25 ml/hr, Infuse over: 40 hr, Route: IV, Dosing Weight 115.938 k g, Total Volume: 1,000, Start date: 07/21/18 10:09:00 CDT, Duration: 30 day, Sto p date: 08/20/18 10:08:00 CDT, 2.4, m2 Start Date: 07/21/18 Stop Date: 07/21/18 Status: Discontinued lisinopril 40 mg, 2 tab, Route: PO, Drug form: TAB, Daily, Dosing Weight 115.938, kg, Prior ity: NOW, Start date: 07/21/18 19:52:00 CDT, Duration: 30 day, Stop date: 9:00:00 CDT Notes: (Same as: Prinivil, Zestril) Start Date: 07/21/18 Stop Date: 07/24/18 Status: Discontinued lisinopril 40 mg oral tablet 40 mg=1 tab, PO, Daily, 0 Refill(s) Start Date: 07/20/18 Status: Ordered metoprolol (ANES) Route: IV, Drug form: INJ, ONCE, Stop date: 07/21/18 11:43:00 CDT Start Date: 07/21/18 Stop Date: 07/21/18 Status: Completed midazolam (ANES) Route: IV, Drug form: SOLN, ONCE, Stop date: 07/21/18 11:22:00 CDT Start Date: 07/21/18 Stop Date: 07/21/18 Status: Completed MiraLax 17 gm, 1 pkt, Route: PO, Drug form: PWDR, BID, Dosing Weight 115.938, kg, Start date: 07/24/18 9:00:00 CDT, Duration: 30 day, Stop date: 08/22/18 17:00:00 CDT Notes: Dissolve in 8 oz of water or juice.(Same as: Miralax) Start Date: 07/24/18 Stop Date: 07/24/18 Status: Discontinued neostigmine (ANES) Route: IV, Drug form: INJ, ONCE, Stop date: 07/21/18 14:17:00 CDT Start Date: 07/21/18 Stop Date: 07/21/18 Status: Completed NexIUM PO, Daily, 0 Refill(s) Start Date: 07/20/18 Status: Ordered ondansetron 4 mg, 2 mL, Route: IVP, Drug form: INJ, Q12H, Dosing Weight 115.938, kg, PRN Geovanni sea & Vomiting, Start date: 07/21/18 14:47:00 CDT, Duration: 30 day, Stop date: 08/20/18 14:46:00 CDT Notes: (Same as: Zofran) MEDICATION WASTE Product Size: 4 mgProduct Was nia: ___ mg Start Date: 07/21/18 Stop Date: 07/24/18 Status: Discontinued phenylephrine (ANES) Route: IV, Drug form: INJ, ONCE, Stop date: 07/21/18 13:13:00 CDT Start Date: 07/21/18 Stop Date: 07/21/18 Status: Completed propofol (ANES) Route: IV, Drug form: INJ, ONCE, Stop date: 07/21/18 11:22:00 CDT Start Date: 07/21/18 Stop Date: 07/21/18 Status: Completed rocuronium (ANES) Route: IV, Drug form: INJ, ONCE, Stop date: 07/21/18 11:22:00 CDT Start Date: 07/21/18 Stop Date: 07/21/18 Status: Completed scopolamine 1.5 mg transdermal film 1 patch, Route: TOP, Drug Form: ERFILM, Dosing Weight 115.938, kg, ONCE, Start d ate: 07/21/18 10:10:00 CDT, Stop date: 07/21/18 10:10:00 CDT Start Date: 07/21/18 Stop Date: 07/21/18 Status: Completed Zosyn + Sodium Chloride 0.9% IV 100 mL 3.375 gm, Route: IVPB, ABXQ8H, Dosing Weight 115.938, kg, CrCl >=20 ml/min infuse over 4 hours, Start date: 07/21/18 15:00:00 CDT, Duration: 1 day, Stop date: 07/22/18 7:00:00 CDT, ABX Indication: Surgical Prophylaxis Notes: (Same as: Zosyn)Dosing based on Piperacillin component MEDICATION WA FAYE Product Size: 3375 mgProduct Wasted: ___ mg Start Date: 07/21/18 Stop Date: 07/22/18 Status: Completed Zosyn + Sodium Chloride 0.9% IV 100 mL 3.375 gm, Route: IVPB, ABXQ8H, Dosing Weight 115.938, kg, CrCl >=20 ml/min infuse over 4 hours, Start date: 07/23/18 23:00:00 CDT, Duration: 5 day, Stop date: 07/28/18 15:00:00 CDT, ABX Indication: Surgical Prophylaxis Notes: (Same as: Zosyn)Dosing based on Piperacillin component MEDICATION WA FAYE Product Size: 3375 mgProduct Wasted: ___ mg Start Date: 07/23/18 Stop Date: 07/24/18 Status: Discontinued Results 1 2 3 Most recent to oldest [Reference Range]: 16.6 K/CMM *HI* (07/23/18 5:36 PM) 14.1 K/CMM *HI* (07/22/18 5:52 AM) Neutrophils # [1.5-8.1 K/CMM] 1.6 K/CMM (07/23/18 5:36 PM) 1.6 K/CMM (07/22/18 5:52 AM) Lymphocytes # [1.0-5.5 K/CMM] 1.1 K/CMM *HI* (07/23/18 5:36 PM) 1.1 K/CMM *HI* (07/22/18 5:52 AM) Monocytes # [0.0-0.8 K/CMM] 0.1 K/CMM (07/23/18 5:36 PM) Basophils # [0.0-0.2 K/CMM] 87 mL/min/1.73m2 1 *NA* (07/24/18 6:32 AM) 97 mL/min/1.73m2 2 *NA* (07/23/18 5:36 PM) 94 mL/min/1.73m2 3 *NA* (07/22/18 5:52 AM) eGFR 0.5 *LOW* (07/24/18 6:32 AM) 0.6 *LOW* (07/23/18 5:36 PM) 0.8 (07/22/18 5:52 AM) A/G Ratio [0.7-1.6] 2.3 g/dL *LOW* (07/24/18 6:32 AM) 2.5 g/dL *LOW* (07/23/18 5:36 PM) 3.2 g/dL *LOW* (07/22/18 5:52 AM) Albumin Lvl [3.5-5.0 g/dL] 96 unit/L (07/24/18 6:32 AM) 104 unit/L (07/23/18 5:36 PM) 161 unit/L *HI* (07/22/18 5:52 AM) Alk Phos [39-136 unit/L] 88 unit/L *HI* (07/24/18 6:32 AM) 110 unit/L *HI* (07/23/18 5:36 PM) 295 unit/L *HI* (07/22/18 5:52 AM) ALT [0-65 unit/L] 11.0 mEq/L (07/24/18 6:32 AM) 9.5 mEq/L *LOW* (07/23/18 5:36 PM) 12.7 mEq/L (07/22/18 5:52 AM) AGAP [10.0-20.0 mEq/L] 25 unit/L (07/24/18 6:32 AM) 31 unit/L (07/23/18 5:36 PM) 231 unit/L *HI* (07/22/18 5:52 AM) AST [0-37 unit/L] 19 (07/24/18 6:32 AM) 23 (07/23/18 5:36 PM) 12 (07/22/18 5:52 AM) B/C Ratio [6-25] 0.3 % (07/23/18 5:36 PM) 0.1 % (07/22/18 5:52 AM) Basophils [0.0-1.0 %] 18 mg/dL (07/24/18 6:32 AM) 19 mg/dL (07/23/18 5:36 PM) 11 mg/dL (07/22/18 5:52 AM) BUN [7-22 mg/dL] 8.4 mg/dL *LOW* (07/24/18 6:32 AM) 8.3 mg/dL *LOW* (07/23/18 5:36 PM) 8.1 mg/dL *LOW* (07/22/18 5:52 AM) Calcium Lvl [8.5-10.5 mg/dL] 107 mEq/L (07/24/18 6:32 AM) 103 mEq/L (07/23/18 5:36 PM) 103 mEq/L (07/22/18 5:52 AM) Chloride Lvl [95-109 mEq/L] 30 mEq/L (07/24/18 6:32 AM) 31 mEq/L (07/23/18 5:36 PM) 28 mEq/L (07/22/18 5:52 AM) CO2 [24-32 mEq/L] 0.97 mg/dL (07/24/18 6:32 AM) 0.84 mg/dL (07/23/18 5:36 PM) 0.91 mg/dL (07/22/18 5:52 AM) Creatinine Lvl [0.50-1.40 mg/dL] 0.2 % (07/23/18 5:36 PM) Eosinophils [0.0-4.0 %] 4.5 g/dL *HI* (07/24/18 6:32 AM) 4.3 g/dL *HI* (07/23/18 5:36 PM) 4.0 g/dL (07/22/18 5:52 AM) Globulin [2.7-4.2 g/dL] 103 mg/dL *HI* (07/24/18 6:32 AM) 120 mg/dL *HI* (07/23/18 5:36 PM) 135 mg/dL *HI* (07/22/18 5:52 AM) Glucose Lvl [70-99 mg/dL] 36.9 % *LOW* (07/24/18 6:32 AM) 38.3 % *LOW* (07/23/18 5:36 PM) 43.9 % (07/22/18 5:52 AM) Hct [42.0-54.0 %] 12.1 g/dL *LOW* (07/24/18 6:32 AM) 12.7 g/dL *LOW* (07/23/18 5:36 PM) 14.5 g/dL (07/22/18 5:52 AM) Hgb [14.0-18.0 g/dL] 4.0 mEq/L (07/24/18 6:32 AM) 3.5 mEq/L (07/23/18 5:36 PM) 3.7 mEq/L (07/22/18 5:52 AM) Potassium Lvl [3.5-5.1 mEq/L] 8.2 % *LOW* (07/23/18 5:36 PM) 9.6 % *LOW* (07/22/18 5:52 AM) Lymphocytes [20.0-40.0 %] 29.6 pg (07/24/18 6:32 AM) 29.5 pg (07/23/18 5:36 PM) 29.4 pg (07/22/18 5:52 AM) MCH [27.0-31.0 pg] 32.7 g/dL (07/24/18 6:32 AM) 33.2 g/dL (07/23/18 5:36 PM) 33.1 g/dL (07/22/18 5:52 AM) MCHC [32.0-36.0 g/dL] 90.4 fL (07/24/18 6:32 AM) 88.8 fL (07/23/18 5:36 PM) 88.8 fL (07/22/18 5:52 AM) MCV [80.0-94.0 fL] 5.8 % (07/23/18 5:36 PM) 6.6 % (07/22/18 5:52 AM) Monocytes [2.0-12.0 %] 8.9 fL (07/24/18 6:32 AM) 8.5 fL (07/23/18 5:36 PM) 8.8 fL (07/22/18 5:52 AM) MPV [7.4-10.4 fL] 144 mEq/L (07/24/18 6:32 AM) 140 mEq/L (07/23/18 5:36 PM) 140 mEq/L (07/22/18 5:52 AM) Sodium Lvl [135-145 mEq/L] 216 K/CMM (07/24/18 6:32 AM) 193 K/CMM (07/23/18 5:36 PM) 234 K/CMM (07/22/18 5:52 AM) Platelet [133-450 K/CMM] 85.5 % *HI* (07/23/18 5:36 PM) 83.7 % *HI* (07/22/18 5:52 AM) Segs [45.0-75.0 %] 6.8 g/dL (07/24/18 6:32 AM) 6.8 g/dL (07/23/18 5:36 PM) 7.2 g/dL (07/22/18 5:52 AM) Total Protein [6.4-8.4 g/dL] 4.08 M/CMM *LOW* (07/24/18 6:32 AM) 4.31 M/CMM *LOW* (07/23/18 5:36 PM) 4.94 M/CMM (07/22/18 5:52 AM) RBC [4.70-6.10 M/CMM] 13.0 % (07/24/18 6:32 AM) 13.1 % (07/23/18 5:36 PM) 12.9 % (07/22/18 5:52 AM) RDW [11.5-14.5 %] 1.1 mg/dL (07/24/18 6:32 AM) 1.1 mg/dL (07/23/18 5:36 PM) 1.5 mg/dL *HI* (07/22/18 5:52 AM) Bili Total [0.2-1.3 mg/dL] 17.1 K/CMM *HI* (07/24/18 6:32 AM) 19.4 K/CMM *HI* (07/23/18 5:36 PM) 16.8 K/CMM *HI* (07/22/18 5:52 AM) WBC [3.7-10.4 K/CMM] 1Result Comment: The eGFR is calculated using the [...] from the National Kidney Disease Education Program ( NKDEP) which additionally recommends that when the eGFR is used in patients with extremes of body mass index for purposes of drug dosing, the eGFR should be mul tiplied by the estimated BMI. 2Result Comment: The eGFR is calculated using the [...] from the National Kidney Disease Education Program ( NKDEP) which additionally recommends that when the eGFR is used in patients with extremes of body mass index for purposes of drug dosing, the eGFR should be mul tiplied by the estimated BMI. 3Result Comment: The eGFR is calculated using the [...] from the National Kidney Disease Education Program ( NKDEP) which additionally recommends that when the eGFR is used in patients with extremes of body mass index for purposes of drug dosing, the eGFR should be mul tiplied by the estimated BMI. Immunizations No data available for this section Procedures No data available for this section Social History Social History Type Response Employment/School Status: Employed. Alcohol Current, Type Liquor. Frequency: 1-2 times per month. Last use: Jun, 2018. Smoking Status Current every day smoker; Type: snuff; Exposure to Tobacco Smoke None; Cigarette Smoking Last 365 Days Yes; Reg Smoking Cessation Counseling No entered on: 07/20/18 Assessment and Plan Extracted from: Title: Surgery Staff Note Author: Anuj Vera Date: 07/24/18 DO Discharge Summary [facility] Completed: Jul, 09:59 by Anuj Vera DO RM: [address] - 2W, SE [id number] (: 1960) M Attending: Anuj Vera DOPhone: Service: Surgery Reason for Admission: CHOLELITHIASIS WITH ACUTE ON CHRONIC CHOLANGITIS Working DRG: Code status: Full CodeCurrent diet: Isolation: No Isolation/Standard Precautions Allergies: No Known Medication Allergies Brief hospital course Pt admitted PO Lap Traci 07/21/2018 Pt had PO fevers, Elevated WBC and cough. POD#2 cough persisted; CXR + KUB ordered. See below. Today he is w/o complaints, tolerating regular diet, labs [wbc & LFTs] are trending down, he is cleared for d/c home. 24hr Labs 07/24 0632 Sodium Coq549 Potassium Lvl4.0 Chloride Nhi384 CO230 AGAP11.0 Glucose Iip087 H Creatinine Lvl0.97 BUN18 B/C Ratio19 Total Protein6.8 Albumin Lvl2.3 L Globulin4.5 H A/G Ratio0.5 L Calcium Lvl8.4 L ALT88 H AST25 Alk Phos96 Bili Total1.1 eGFR87 WBC17.1 H RBC4.08 L Hgb12.1 L Hct36.9 L MCV90.4 MCH29.6 MCHC32.7 RDW13.0 Mxnhpplz051 MPV8.9 07/23 1736 Sodium Xyu621 Potassium Lvl3.5 Chloride Vov050 CO231 AGAP9.5 L Glucose Dbt795 H Creatinine Lvl0.84 BUN19 B/C Ratio23 Total Protein6.8 Albumin Lvl2.5 L Globulin4.3 H A/G Ratio0.6 L Calcium Lvl8.3 L JDP227 H AST31 Alk Mvoi520 Bili Total1.1 eGFR97 WBC19.4 H RBC4.31 L Hgb12.7 L Hct38.3 L MCV88.8 MCH29.5 MCHC33.2 RDW13.1 Oyskkdds340 MPV8.5 Segs85.5 H Monocytes5.8 Lymphocytes8.2 L Eosinophils0.2 Basophils0.3 Neutrophils #16.6 H Lymphocytes #1.6 Monocytes #1.1 H Basophils #0.1 07/23 1637 POC Performing LocatioSee Note Glucose GDJ775 H 07/23 1159 POC Performing LocatioSee Note Glucose LJR425 H Result type:Abdomen AP DX Result date:07/24/2018 03:26 CDT Result status:Modified Result title:ABDOMEN AP DX Performed by:Tavon Hernandez MD on 07/24/2018 03:30 CDT Signed by:Tavon Hernandez MD on 07/24/2018 03:31 CDT Encounter info:[id number], [facility], Observation, 07/21/2018 - * Final Report [...] the gallbladder fossa. IMPRESSION: 1. Unremarkable abdomen. : [id number] Signature Line - - Read by: Tavon Hernandez MD Dictated Date/time: 07/24/18 03:30 Electronically Signed by: Tavon Hernandez MD 07/24/18 03:31 FINAL REPORT URL This document has an image VitalsTmp(F)[id number] 07/24 08:9432.5339364/354878--- 07/24 07:08 1693--- 07/24 03:4499.5020457/685906--- 07/23 23:4399.2270284/741923--- 07/23 20:22 1493 21% 24 Hr Tmax: 99.8F (37.67c) at 07/23 23:43Vital Signs are the last 5 in the past 48 hours. DateWt(kg)Wt(lb)Ht(cm)Ht(in)Method 07/20 (initial)115.94 255.06Measured 75.26 69.00Stated I&ORecordInOutBal 1524hr Tot 122 0 122 1424hr Tot 637 700 -63 Medications (11) Active [...] 1,000 mL 1,000 mL 125 ml/hr ASSESSMENT & EXAM: S/P Lap Traci for Acute Cholecystitis CXR and KUB benign PLAN & TREATMENT Discharge Home Rx given Augmentin Toradol F/U Wednesday Extracted from: Title: Surgery Staff Note Author: Anuj Vera Date: 07/23/18 DO Progress Note - Daily [facility] Completed: Wednesday, JUL 23, 2018, 13:01 by Anuj Vera DO RM: [address] - [address]W, SE [id number] (: 1960) M Attending: Anuj Vera DOPhone: Service: Surgery Reason for Admission: CHOLELITHIASIS WITH ACUTE ON CHRONIC CHOLANGITIS Working DRG: Code status: Full CodeCurrent diet: Isolation: No Isolation/Standard Precautions Allergies: No Known Medication Allergies SUBJECTIVE Feeling Better New onset Cough pain meds helpful but do not last. OBJECTIVE Gen: in NAD Abd: obese Skin: incisions c/d/i 24hr Labs 07/23 1159 POC Performing LocatioSee Note Glucose INZ800 H 07/23 0816 POC Performing LocatioSee Note Glucose JNE769 H VitalsTmp(F)XstjmDPYYUjB7GUU0 07/23 12:0098.9876097/077557--- 07/23 08:16-------134/997874--- 07/23 07:55 1692--- 07/23 04:0598.9685925/193773--- 07/22 23:2998.790957/359454--- 24 Hr Tmax: 100.2F (37.89c) at 07/22 23:24Vital Signs are the last 5 in the past 48 hours. DateWt(kg)Wt(lb)Ht(cm)Ht(in)Method 07/20 (initial)115.94 255.06Measured 75.26 69.00Stated I&ORecordInOutBal 07/1523hr Tot 2 0 2 07/1423hr Tot 637 700 -63 Medications (9) Active [...] 1,000 mL 1,000 mL 125 ml/hr ASSESSMENT & EXAM POD#2 Lap Cholecystectomy PLAN & TREATMENT Afebrile x 24 hours. Last temp elevation: 100.3'F 0200 today Await labs
--- OUTSIDE RECORDS SUMMARY | 2018-08-29 11:58 | XMS REPORT | Summary of Care ---
Author Author [facility] [place] Organization [facility] [place] Address Unknown Phone Unavailable Encounter HQ Encntr_aliean(FIN) [id number] Date(s): 03/04/16 - 03/04/16 [facility] [place] [address] [place] [address] [phone] Discharge Disposition: Home or Self Care Attending Physician: Robert Aaron DO Vital Signs No data available for this section Problem List No data available for this section Allergies, Adverse Reactions, Alerts Substance Reaction Severity Status NKDA Active Medications No data available for this section Results No data available for this section Immunizations No data available for this section Procedures No data available for this section Social History Social History Type Response Assessment and Plan No data available for this section
--- OUTSIDE RECORDS SUMMARY | 2018-08-29 11:58 | XMS REPORT | Summary of Care ---
Author Organization Unknown Address Unknown Phone Unavailable Encounter [facility] Encntr_alias([facility]) [id number] Date(s): 08/08/14 - 08/08/14 [facility] [place] [address] [place] [address] [phone] Discharge Disposition: Home Physician Attending: Madhuri Gaston MD Vital Signs No data available for this [...]
--- OUTSIDE RECORDS SUMMARY | 2018-08-29 11:58 | XMS REPORT | Summary of Care ---
Author Author [facility] Outpatient Imaging [facility] Outpatient [facility] Address Unknown Phone Unavailable Encounter HQ Encntr_alias(FIN) [id number] Date(s): 12/18/16 - 12/18/16 [facility] Outpatient Imaging [facility] [address] [facility], [address] [place] [phone] Discharge Disposition: Home or Self Care Attending Physician: Adelfo Luna MD Vital Signs No data available for [...]
--- OUTSIDE RECORDS SUMMARY | 2018-08-29 11:58 | XMS REPORT | Summary of Care ---
Author Author [facility] [place] Organization [facility] [place] Address Unknown Phone Unavailable Encounter HQ Radha(FIN) [id number] Date(s): 07/19/18 - 07/19/18 [facility] [place] [address] [place] [address] [phone] Discharge Disposition: Home or Self Care Attending Physician: Vianney Desai MD Referring Physician: Vianney Desai MD Vital Signs No data available for this section Problem List Condition Effective Dates Status Health Status Informant Bronchitis(Confirmed Resolved ) GERD Active (gastroesophageal reflux disease)(Confirmed) Hypertension(Confirm Active ed) Pneumonia(Confirmed) Resolved Allergies, Adverse Reactions, Alerts No Known Medication Allergies Medications No data available for this section [...] No entered on: 07/20/18 Assessment and Plan No data available for this section
--- OUTSIDE RECORDS SUMMARY | 2018-08-29 11:58 | XMS REPORT ---
Author Author [facility] Address Unknown Phone Unavailable Care Team Providers Care Coding Quality Analyst Name Role Phone Unavailable Unavailable Problems This patient has no known problems. Allergies, Adverse Reactions, Alerts This patient has no known allergies or adverse reactions. Medications This patient has no known medications. Encounters Start Date/Time End Date/Time Encounter Type Admission Type Attending [facility] Care Facility Care Department Encounter ID 2018-07-21 14:44:00 2018-07-21 14:44:00 Outpatient [facility] [id number]
--- OUTSIDE RECORDS SUMMARY | 2018-08-29 11:58 | XMS REPORT | Summary of Care ---
Author Author [facility] Outpatient Imaging [facility] Outpatient Imaging [facility] Address Unknown Phone Unavailable Encounter HQ Raul_carlie(FIN) [id number] Date(s): 08/17/18 - 08/17/18 [facility] Outpatient Imaging [facility] [address] [facility], [address] [place] [phone] Discharge Disposition: Home or Self Care Attending Physician: Robert Aaron DO Referring Physician: Robert Araon DO Vital Signs No data available for [...]
[2018-08-29 16:45] VITALS: BP 145/98
--- NOTE | 2018-10-26 08:04 | Operative Report ---
DATE OF PROCEDURE: 08/29/2018 SURGEON: Marco De La Paz MD PROCEDURES: Esophagogastroduodenoscopy with biopsies and colonoscopy with polypectomy. INDICATIONS FOR EGD: Upper abdominal pain. INDICATIONS FOR COLONOSCOPY: Surveillance colonoscopy, personal history of colon polyps. MEDICATIONS: The patient was done under MAC. Please see anesthesiologist's note. PROCEDURE IN DETAIL: With the patient in left lateral decubitus position, flexible fiberoptic Olympus gastroscope was inserted into the esophagus under direct visualization without any difficulty. There was some patchy erythema noted in distal esophagus. A minute tongue of velvety red mucosa was noted to extend proximally from the GE junction that was biopsied to rule out Carlson's. The scope was then advanced with ease into the stomach traversing a small hiatal hernia. The mucosa overlying the antrum and the body revealed some patchy erythema and [id number] edema and biopsies were obtained and sent to stain for H. pylori. An extrinsic compression was noted along the anterior wall in the antrum as well as the duodenal bulb. The scope was advanced all the way to the second portion of the duodenum. Biopsies were obtained from the second portion and duodenal bulb to rule out sprue. The scope was then withdrawn back into the stomach and retroflexed and minute nodules were noted in the cardia. Biopsies were obtained. The scope was then straightened out and was subsequently withdrawn. The patient tolerated procedure well. IMPRESSION: 1. Distal esophagitis, mild. 2. Rule out Carlson esophagus. 3. Small hiatal hernia. 4. Minute nodules cardia, biopsied. 5. Gastritis, biopsied. Biopsies sent to stain for H. pylori. 6. Extrinsic compression along the anterior wall of the antrum and duodenal bulb. 7. Rule out sprue. PLAN: Follow up histology. Initiate Protonix 40 mg one p.o. q.a.m. a.c. The patient will need a CT scan of the abdomen to delineate the nature of the compression along the anterior wall of the antrum as well as the duodenal bulb. The patient was then turned around and after adequate lubrication of the anal canal, a flexible fiberoptic Olympus colonoscope was inserted into the rectum with ease and advanced all the way to the cecum. It was then withdrawn slowly. Of note, the prep overall was suboptimal with retained stools in the colon. The scope was then withdrawn slowly and whatever was visualized the mucosa overlying the cecum and ascending colon appeared to be within normal limits. One polyp was hot biopsied from the transverse colon. Diverticular disease was noted to involve the distal descending and the sigmoid colon. Three polyps were hot biopsied in the sigmoid and one polyp was hot biopsied in the rectum. The scope was then retroflexed into the distal rectum and small internal hemorrhoids were noted none of which was actively bleeding. The scope was then straightened out. It was subsequently withdrawn. The patient tolerated the procedure well. IMPRESSION: 1. Suboptimal prep. 2. Transverse colon polyp, hot biopsied. 3. Diverticulosis. 4. Sigmoid colon polyps x3, hot biopsied. 5. Rectal polyp, hot biopsied. 6. Internal hemorrhoids none actively bleeding. PLAN: Follow up histology. Initiate high-fiber low-fat diet. Initiate high-fiber supplement. The patient will need a followup colonoscopy in approximately a year or less due to suboptimal prep. Marco De La Paz MD [facility] [place] /[id number] cc: Dr. Robert De La Paz MD
== END | disposition home or self-care (01) ==
LOC: OR 11:56
PROVIDERS: ATTEND Internal Medicine Gastroenterology
DX: D12.3 Benign neoplasm of transverse colon (principal); K20.9 Esophagitis, unspecified; K44.9 Diaphragmatic hernia without obstruction or gangrene; K29.70 Gastritis, unspecified, without bleeding; E75.5 Other lipid storage disorders; K22.70 Barrett's esophagus without dysplasia; Z86.010 Personal history of colon polyps; R10.10 Upper abdominal pain, unspecified; R14.0 Abdominal distension (gaseous); I10 Essential (primary) hypertension; Z68.36 Body mass index [BMI] 36.0-36.9, adult; K21.9 Gastro-esophageal reflux disease without esophagitis; K63.5 Polyp of colon; K57.30 Diverticulosis of large intestine without perforation or abscess without bleeding; K64.8 Other hemorrhoids
CPT/HCPCS: 43239; 45384; 93005; J1610; J2001; J2250; J2704; J3010

== ENCOUNTER → 2018-09-08 | Outpatient (CLI) | payer BC ==
[~2018-09-08] MED LIST changes: -FENTANYL CITRATE/PF 100MCG/2 ML INJ ONE; -GLUCAGON FOR INJ 1 MG VIAL ONE; -HYOSCYAMINE 0.125 MG TAB ONE; +IOPAMIDOL 370 MG/ML 200 ML INFUS..BTL INJ ONE; -LIDOCAINE HCL 2% LOCAL INJ 5 ML SDV VIAL INJ ONE; -MIDAZOLAM HCL 2 MG/2 ML VIAL ONE; -PROPOFOL IV EMULSION 10 MG/ML 20 ML VIAL ONE; +SODIUM CHLORIDE 0.9% 50ML 50 ML ONE
[2018-09-08 07:48] LABS: BLOOD UREA NITROGEN 16 mg/dL (7-26); BUN/CREATININE RATIO 20 (6-25); CREATININE, SERUM 0.81 mg/dL (0.72-1.25); EST GLOMERULAR FILTRATION RATE > 60 ML/MIN (60-)
--- NOTE | 2018-09-08 09:26 | Diagnostic Imaging Report ---
EXAM: CT Abdomen and Pelvis WITH intravenous contrast INDICATION: Right upper quadrant pain following cholecystectomy. COMPARISON: None. TECHNIQUE: Abdomen and pelvis were scanned utilizing a multidetector helical scanner from the lung base to the pubic symphysis after administration of IV contrast. Coronal and sagittal reformations were obtained. Routine protocol was performed. Scan was performed when during portal venous phase. IV CONTRAST: 100mL of Isovue 370 ORAL CONTRAST: Water COMPLICATIONS: None RADIATION DOSE: Total DLP: 848.0 mGy*cm Dose modulation, iterative reconstruction, and/or weight based adjustment of the mA/kV was utilized to reduce the radiation dose to as low as reasonably achievable. FINDINGS: LOWER THORAX: Normal. HEPATOBILIARY: Status post cholecystectomy. There is a 8.3 x 9.1 x 8.0 cm fluid collection measuring approximately 10 Hounsfield units centered about the left lobe of the liver. The fluid collection abuts the duodenum inferiorly and distal stomach anteriorly. A separate fluid collection in the gallbladder fossa measures 4.6 x 3.2 cm. No other focal liver lesions. No significant intrahepatic biliary ductal dilatation. SPLEEN: No splenomegaly. PANCREAS: No focal masses or ductal dilatation. ADRENALS: No adrenal nodules. KIDNEYS/URETERS: No hydronephrosis or renal calculi. Bilateral simple renal cysts measure up to 2.7 cm on the left and 2.3 cm on the right. PELVIC ORGANS/BLADDER: Prostatomegaly to 5.7 cm with coarse internal calcifications. PERITONEUM / RETROPERITONEUM: No free air or fluid. LYMPH NODES: No lymphadenopathy. VESSELS: Minimal atherosclerotic calcification of the nonaneurysmal abdominal aorta. GI TRACT: Sigmoid colon diverticulosis with no CT evidence of diverticulitis. No abnormal bowel wall thickening. No bowel obstruction. BONES AND SOFT TISSUES: No acute osseous injury. Mild degenerative changes of the visualized spine. No suspicious lytic or blastic lesions. IMPRESSION: Two postoperative fluid collections status post cholecystectomy, the larger centered in the left liver measuring 8.3 x 9.1 x 8.0 cm and the smaller centered in the gallbladder fossa measuring 4.6 x 3.2 cm. Findings most likely represent either postoperative seroma or biloma. Prostatomegaly. Colonic diverticulosis with no CT evidence of diverticulitis. Signed by: Alfreda Seymour MD on 09/08/2018 9:23 AM
== END ==
LOC: CT 06:59
PROVIDERS: ATTEND Internal Medicine Gastroenterology
DX: R10.11 Right upper quadrant pain (principal); K57.90 Diverticulosis of intestine, part unspecified, without perforation or abscess without bleeding; Z98.890 Other specified postprocedural states
CPT/HCPCS: 36415; 74177; 82565; 84520; Q9967

== ENCOUNTER 2018-09-14 16:30 | Inpatient (IN) | payer BC ==
[~2018-09-14] VITALS: Ht 175.3 cm; Wt 114.3 kg
[~2018-09-14 16:30] MED LIST changes: -IOPAMIDOL 370 MG/ML 200 ML INFUS..BTL INJ ONE; -NEXIUM40 MG PO; -NORCO 5-325 TA1 EACH PO; -SODIUM CHLORIDE 0.9% 50ML 50 ML ONE; -TYLENOL # 31 EA PO
--- OUTSIDE RECORDS SUMMARY | 2018-09-14 16:34 | XMS REPORT | Continuity of Care Document ---
Author Author [employer] Address Unknown Phone Unavailable Care Team Providers Care Orthodontist Name Role Phone [employer] Unavailable Unavailable Problems Problem Status Onset Date Classification Date Reported Comments Source UNK Active 07/19/2018 [facility] CHOLELITHIASIS WITH ACUTE ON CHRONIC CHO Active 07/19/2018 [facility] R10.11 - RIGHT UPPER QUADRANT PAIN Active 07/18/2018 [facility] [place] M25.50 - PAIN IN UNSPECIFIED JOINT Active 03/03/2016 [facility] [place] 720.2 - SACROILIITIS NE Active 10/17/2014 [facility] [place] Bronchitis Resolved Problem 08/19/2018 [facility] [place] [place] GERD (Confirmed) Active Problem 08/19/2018 [facility] [place],[facility], [facility] [place] Hypertension Active Problem 08/19/2018 [facility] [place] [place] Pneumonia Resolved Problem 08/19/2018 [facility] [place] [place] Medications Medication Details Route Status Patient Instructions Ordering Provider Order Date Source Atenolol 25 MG Oral Tablet 25 mg=1 tab, PO, Daily, 0 Refill(s) Active 07/24/2018 [facility] Miralax 17 gm, 1 pkt, Route: PO, Drug form: PWDR, BID, Dosing Weight 115.938, kg, Start date: 07/24/18 9:00:00 CDT, Duration: 30 day, Stop date: 08/22/18 17:00:00 CDTNotes: Dissolve in 8 oz of water or juice. (Same as: Miralax) Inactive 07/24/2018 [facility] Zosyn 3.375 gm, Route: IVPB, ABXQ8H, Dosing Weight 115.938, kg, CrCl >=20 ml/min infuse over 4 hours, Start date: 07/23/18 23:00:00 CDT, Duration: 5 day, Stop date: 07/28/18 15:00:00 CDT, ABX Indication: Surgical ProphylaxisNotes: (Same as: Zosyn) Dosing based on Piperacillin component MEDICATION WASTE Product Size: 3375 mg Product Wasted: ___ mg No Longer Active 07/24/2018 [facility] Atenolol 25 mg, 1 tab, Route: PO, Drug form: TAB, Daily, Dosing Weight 115.938, kg, Start date: 07/22/18 9:00:00 CDT, Duration: 30 day, Stop date: 08/20/18 9:00:00 CDTNotes: (Same As:Tenormin) No Longer Active 07/22/2018 [facility] Acetaminophen 650 mg, 2 tab, Route: PO, Drug form: TAB, Q6H, Dosing Weight 115.938, kg, PRN Pain 1-3/Temp > 100.4 F, Start date: 07/22/18 5:55:00 CDT, Duration: 30 day, Stop date: 08/21/18 5:54:00 CDTNotes: Do not exceed 4 gm/day. (Same as: Tylenol) No Longer Active 07/22/2018 [facility] ketOROLAC 30 mg/mL injectable solution 30 [...] Wasted: ___ mg No Longer Active 07/22/2018 [facility] Famotidine 20 mg, 1 tab, Route: PO, Drug form: TAB, Q12H, Dosing Weight 115.938, kg, Start date: 07/21/18 21:00:00 CDT, Duration: 30 day, Stop date: 08/20/18 9:00:00 CDTNotes: (Same as: Pepcid) No Longer Active 07/22/2018 [facility] Lisinopril 40 mg, 2 tab, Route: PO, Drug form: TAB, Daily, Dosing Weight 115.938, kg, Priority: NOW, Start date: 07/21/18 19:52:00 CDT, Duration: 30 day, Stop date: 08/20/18 9:00:00 CDTNotes: (Same as: Prinivil, Zestril) No Longer Active 07/22/2018 [facility] Dilaudid 0.5 mg, 0.5 mL, Route: IVP, Drug form: INJ, Q2H, Dosing Weight 115.938, kg, PRN Pain Score 7-10, Start date: 07/21/18 18:00:00 CDT, Duration: 30 day, Stop date: 08/20/18 17:59:00 CDTNotes: Same as: Dilaudid No Longer Active 07/21/2018 [facility] Zosyn 3.375 gm, Route: IVPB, ABXQ8H, Dosing Weight 115.938, kg, CrCl >=20 ml/min infuse over 4 hours, Start date: 07/21/18 15:00:00 CDT, Duration: 1 day, Stop date: 07/22/18 7:00:00 CDT, ABX Indication: Surgical ProphylaxisNotes: (Same as: Zosyn) Dosing based on Piperacillin component MEDICATION WASTE Product Size: 3375 mg Product Wasted: ___ mg No Longer Active 07/21/2018 [facility] Acetaminophen 21.7 MG/ML / Hydrocodone Bitartrate 0.5 MG/ML Oral Solution 15 mL, Route: PO, Drug Form: SOLN, Dosing Weight 115.938, kg, Q4H, PRN Pain Score 4-6, Start date: 07/21/18 14:47:00 CDT, Duration: 30 day, Stop date: 08/20/18 14:46:00 CDTNotes: Do not exceed 4gm/day of acetaminophen. (Same as: [place] 325/7.5) No Longer Active 07/21/2018 [facility] Ondansetron 4 mg, 2 mL, Route: IVP, Drug form: INJ, Q12H, Dosing Weight 115.938, kg, PRN Nausea & Vomiting, Start date: 07/21/18 14:47:00 CDT, Duration: 30 day, Stop date: 08/20/18 14:46:00 CDTNotes: (Same as: [place]) MEDICATION WASTE Product Size: 4 mg Product Wasted: ___ mg No Longer Active 07/21/2018 [facility] Calcium Chloride 0.0014 MEQ/ML / Potassium Chloride 0.004 MEQ/ML / Sodium Chloride 0.103 MEQ/ML / Sodium Lactate 0.028 MEQ/ML Injectable Solution 1,000 mL, Rate: 125 ml/hr, Infuse over: 8 hr, Route: IV, Dosing Weight 115.938 kg, Total Volume: 1,000, Start date: 07/21/18 14:47:00 CDT, Duration: 30 day, Stop date: 08/20/18 14:46:00 CDT, 2.4, m2 No Longer Active 07/21/2018 [facility] glycopyrrolate (ANES) Route: IV, Drug form: INJ, ONCE, Stop date: 07/21/18 14:17:00 CDT Inactive 07/21/2018 [facility] neostigmine (ANES) Route: IV, Drug form: INJ, ONCE, Stop date: 07/21/18 14:17:00 CDT Inactive 07/21/2018 [facility] Ondansetron 4 mg, Route: IVP, ONCE, Dosing Weight 115.938, kg, PRN Nausea & Vomiting, Start date: 07/21/18 13:38:00 CDT Inactive 07/21/2018 [facility] Flumazenil 0.2 mg, Route: IVP, PRN, Dosing Weight 115.938, kg, PRN Benzodiazepine Reversal, Initial dose, Start date: 07/21/18 13:38:00 CDT, Duration: 30 day, Stop date: 08/20/18 13:37:00 CDT Inactive 07/21/2018 [facility] Naloxone 0.4 mg, Route: IVP, Q2MIN, Dosing Weight 115.938, kg, PRN Narcotic Reversal, Start date: 07/21/18 13:38:00 CDT, Duration: 8 doses or times, Stop date: Limited # of times Inactive 07/21/2018 [facility] Hydromorphone 0.5 mg, Route: IVP, Q5Min, Dosing Weight 115.938, kg, PRN Pain Score 7-10, Start date: 07/21/18 13:38:00 CDT, Duration: 4 doses or times, Stop date: Limited # of times Inactive 07/21/2018 [facility] Fentanyl 25 microgram, Route: IVP, Q5Min, Dosing Weight 115.938, kg, PRN Pain Score 4-6, Priority: Routine, Start date: 07/21/18 13:38:00 CDT, Duration: 4 doses or times, Stop date: Limited # of times Inactive 07/21/2018 [facility] phenylephrine (ANES) Route: IV, Drug form: INJ, ONCE, Stop date: 07/21/18 13:13:00 CDT Inactive 07/21/2018 [facility] metoprolol (ANES) Route: IV, Drug form: INJ, ONCE, Stop date: 07/21/18 11:43:00 CDT Inactive 07/21/2018 [facility] ceFAZolin (ANES) Route: IV, Drug form: INJ, ONCE, Stop date: 07/21/18 11:33:00 CDT Inactive 07/21/2018 [facility] dexamethasone (ANES) Route: IV, Drug form: INJ, ONCE, Stop date: 07/21/18 11:33:00 CDT Inactive 07/21/2018 [facility] fentaNYL (ANES) Route: IV, Drug form: INJ, ONCE, Stop date: 07/21/18 11:22:00 CDT Inactive 07/21/2018 [facility] propofol (ANES) Route: IV, Drug form: INJ, ONCE, Stop date: 07/21/18 11:22:00 CDT Inactive 07/21/2018 [facility] rocuronium (ANES) Route: IV, Drug form: INJ, ONCE, Stop date: 07/21/18 11:22:00 CDT Inactive 07/21/2018 [facility] midazolam (ANES) Route: IV, Drug form: SOLN, ONCE, Stop date: 07/21/18 11:22:00 CDT Inactive 07/21/2018 [facility] Lactated Ringers Injection IV (ANES) 1000 mL Route: IV, Total Volume: 1,000, Start date: 07/21/18 10:10:00 CDT, Stop date: 07/21/18 11:10:00 CDT Inactive 07/21/2018 [facility] 72 HR Scopolamine 0.0139 MG/HR Transdermal Patch 1 patch, Route: TOP, Drug Form: ERFILM, Dosing Weight 115.938, kg, ONCE, Start date: 07/21/18 10:10:00 CDT, Stop date: 07/21/18 10:10:00 CDT Inactive 07/21/2018 [facility] Calcium Chloride 0.0014 MEQ/ML / Potassium Chloride 0.004 MEQ/ML / Sodium Chloride 0.103 MEQ/ML / Sodium Lactate 0.028 MEQ/ML Injectable Solution 1,000 mL, Rate: 25 ml/hr, Infuse over: 40 hr, Route: IV, Dosing Weight 115.938 kg, Total Volume: 1,000, Start date: 07/21/18 10:09:00 CDT, Duration: 30 day, Stop date: 08/20/18 10:08:00 CDT, 2.4, m2 Inactive 07/21/2018 [facility] Nexium PO, Daily, 0 Refill(s) Active 07/20/2018 [facility] lisinopril 40 mg oral tablet 40 mg=1 tab, PO, Daily, 0 Refill(s) Active 07/20/2018 [facility] Atenolol 25 MG Oral Tablet 25 mg=1 tab, PO, Daily, 0 Refill(s) Active 07/20/2018 [facility] Allergies, Adverse Reactions, Alerts Substance Category Reaction Severity Reaction type Status Date Reported Comments Source No Known Medication Allergies Assertion Drug allergy [facility] [place] Immunizations No Data Provided for This Section Results Order Name Results Value Reference Range Date Interpretation Comments Source CHEM PANEL Calcium Lvl 8.4 8.5 - 10.5 07/24/2018 [facility] CHEM PANEL Total Protein 6.8 6.4 - 8.4 07/24/2018 [facility] CHEM PANEL Albumin Lvl 2.3 3.5 - 5.0 07/24/2018 [facility] CHEM PANEL eGFR 87 07/24/2018 Result [...] PANEL AGAP 11.0 10.0 - 20.0 07/24/2018 [facility] CHEM PANEL B/C Ratio 19 6 - 25 07/24/2018 [facility] CHEM PANEL A/G Ratio 0.5 0.7 - 1.6 07/24/2018 [facility] CHEM PANEL ALT 88 0 - 65 07/24/2018 [facility] CHEM PANEL AST 25 0 - 37 07/24/2018 [facility] CHEM PANEL Alk Phos 96 39 - 136 07/24/2018 [facility] CHEM PANEL Bili Total 1.1 0.2 - 1.3 07/24/2018 [facility] CHEM PANEL Sodium Lvl 144 135 - 145 07/24/2018 [facility] CHEM PANEL Potassium Lvl 4.0 3.5 - 5.1 07/24/2018 [facility] CHEM PANEL BUN 18 7 - 22 07/24/2018 [facility] CHEM PANEL Creatinine Lvl 0.97 0.50 - 1.40 07/24/2018 [facility] CHEM PANEL Glucose Lvl 103 70 - 99 07/24/2018 [facility] CHEM PANEL Chloride Lvl 107 95 - 109 07/24/2018 [facility] CHEM PANEL CO2 30 24 - 32 07/24/2018 [facility] HEMATOLOGY MCHC 32.7 32.0 - 36.0 07/24/2018 [facility] HEMATOLOGY MCV 90.4 80.0 - 94.0 07/24/2018 [facility] HEMATOLOGY RDW 13.0 11.5 - 14.5 07/24/2018 [facility] HEMATOLOGY MCH 29.6 27.0 - 31.0 07/24/2018 [facility] HEMATOLOGY Hct 36.9 42.0 - 54.0 07/24/2018 [facility] HEMATOLOGY RBC 4.08 4.70 - 6.10 07/24/2018 [facility] HEMATOLOGY Hgb 12.1 14.0 - 18.0 07/24/2018 [facility] HEMATOLOGY MPV 8.9 7.4 - 10.4 07/24/2018 [facility] HEMATOLOGY Platelet 216 133 - 450 07/24/2018 [facility] HEMATOLOGY WBC 17.1 3.7 - 10.4 07/24/2018 [facility] CHEM PANEL eGFR 97 07/23/2018 Result [...] should be multiplied by the estimated BMI. [facility] CHEM PANEL A/G Ratio 0.6 0.7 - 1.6 07/23/2018 [facility] CHEM PANEL Globulin 4.3 2.7 - 4.2 07/23/2018 [facility] CHEM PANEL B/C Ratio 23 6 - 25 07/23/2018 [facility] CHEM PANEL AGAP 9.5 10.0 - 20.0 07/23/2018 [facility] CHEM PANEL Bili Total 1.1 0.2 - 1.3 07/23/2018 [facility] CHEM PANEL Alk Phos 104 39 - 136 07/23/2018 [facility] CHEM PANEL AST 31 0 - 37 07/23/2018 [facility] CHEM PANEL ALT 110 0 - 65 07/23/2018 [facility] CHEM PANEL Albumin Lvl 2.5 3.5 - 5.0 07/23/2018 [facility] CHEM PANEL Total Protein 6.8 6.4 - 8.4 07/23/2018 [facility] CHEM PANEL Calcium Lvl 8.3 8.5 - 10.5 07/23/2018 [facility] CHEM PANEL CO2 31 24 - 32 07/23/2018 [facility] CHEM PANEL Chloride Lvl 103 95 - 109 07/23/2018 [facility] CHEM PANEL Potassium Lvl 3.5 3.5 - 5.1 07/23/2018 [facility] CHEM PANEL Glucose Lvl 120 70 - 99 07/23/2018 [facility] CHEM PANEL Sodium Lvl 140 135 - 145 07/23/2018 [facility] CHEM PANEL Creatinine Lvl 0.84 0.50 - 1.40 07/23/2018 [facility] CHEM PANEL BUN 19 7 - 22 07/23/2018 [facility] HEMATOLOGY Eosinophils 0.2 0.0 - 4.0 07/23/2018 [facility] HEMATOLOGY Monocytes 5.8 2.0 - 12.0 07/23/2018 [facility] Segs 85.5 45.0 - 75.0 07/23/2018 [facility] Neutrophils # 16.6 1.5 - 8.1 07/23/2018 [facility] Lymphocytes 8.2 20.0 - 40.0 07/23/2018 [facility] Basophils # 0.1 0.0 - 0.2 07/23/2018 [facility] Basophils 0.3 0.0 - 1.0 07/23/2018 [facility] Monocytes # 1.1 0.0 - 0.8 07/23/2018 [facility] Lymphocytes # 1.6 1.0 - 5.5 07/23/2018 [facility] Hgb 12.7 14.0 - 18.0 07/23/2018 [facility] WBC 19.4 3.7 - 10.4 07/23/2018 [facility] Hct 38.3 42.0 - 54.0 07/23/2018 [facility] RBC 4.31 4.70 - 6.10 07/23/2018 [facility] MCH 29.5 27.0 - 31.0 07/23/2018 [facility] MCV 88.8 80.0 - 94.0 07/23/2018 [facility] MPV 8.5 7.4 - 10.4 07/23/2018 [facility] Platelet 193 133 - 450 07/23/2018 [facility] RDW 13.1 11.5 - 14.5 07/23/2018 [facility] MCHC 33.2 32.0 - 36.0 07/23/2018 [facility] CHEM PANEL eGFR 94 07/22/2018 Result [...] should be multiplied by the estimated BMI. [facility] CHEM PANEL AST 231 0 - 37 07/22/2018 [facility] CHEM PANEL Alk Phos 161 39 - 136 07/22/2018 [facility] CHEM PANEL Bili Total 1.5 0.2 - 1.3 07/22/2018 [facility] CHEM PANEL Calcium Lvl 8.1 8.5 - 10.5 07/22/2018 [facility] CHEM PANEL Total Protein 7.2 6.4 - 8.4 07/22/2018 [facility] CHEM PANEL Albumin Lvl 3.2 3.5 - 5.0 07/22/2018 [facility] CHEM PANEL Creatinine Lvl 0.91 0.50 - 1.40 07/22/2018 [facility] CHEM PANEL Sodium Lvl 140 135 - 145 07/22/2018 [facility] CHEM PANEL Potassium Lvl 3.7 3.5 - 5.1 07/22/2018 [facility] CHEM PANEL Chloride Lvl 103 95 - 109 07/22/2018 [facility] CHEM PANEL CO2 28 24 - 32 07/22/2018 [facility] CHEM PANEL Glucose Lvl 135 70 - 99 07/22/2018 [facility] CHEM PANEL BUN 11 7 - 22 07/22/2018 [facility] CHEM PANEL ALT 295 0 - 65 07/22/2018 [facility] CHEM PANEL A/G Ratio 0.8 0.7 - 1.6 07/22/2018 [facility] CHEM PANEL AGAP 12.7 10.0 - 20.0 07/22/2018 [facility] CHEM PANEL B/C Ratio 12 6 - 25 07/22/2018 [facility] CHEM PANEL Globulin 4.0 2.7 - 4.2 07/22/2018 [facility] HEMATOLOGY Monocytes # 1.1 0.0 - 0.8 07/22/2018 [facility] Lymphocytes # 1.6 1.0 - 5.5 07/22/2018 [facility] Segs 83.7 45.0 - 75.0 07/22/2018 [facility] Lymphocytes 9.6 20.0 - 40.0 07/22/2018 [facility] Basophils 0.1 0.0 - 1.0 07/22/2018 [facility] Neutrophils # 14.1 1.5 - 8.1 07/22/2018 [facility] Monocytes 6.6 2.0 - 12.0 07/22/2018 [facility] MCHC 33.1 32.0 - 36.0 07/22/2018 [facility] RDW 12.9 11.5 - 14.5 07/22/2018 [facility] MPV 8.8 7.4 - 10.4 07/22/2018 [facility] Platelet 234 133 - 450 07/22/2018 [facility] MCV 88.8 80.0 - 94.0 07/22/2018 [facility] Hgb 14.5 14.0 - 18.0 07/22/2018 [facility] RBC 4.94 4.70 - 6.10 07/22/2018 [facility] WBC 16.8 3.7 - 10.4 07/22/2018 [facility] Hct 43.9 42.0 - 54.0 07/22/2018 [facility] MCH 29.4 27.0 - 31.0 07/22/2018 [facility] Pathology Reports No Data Provided for [...] pneumonia and small left pleural effusion. 08/17/2018 [facility] Chest 2 views DX Clinical Indication: - [...] lobe infiltrate and small left effusion. SL: [id number] 07/24/2018 [facility] Abdomen AP DX Clinical Indication: - [...] gallbladder fossa. IMPRESSION: 1. Unremarkable abdomen. SL: [id number] 07/24/2018 [facility] RUQ US EXAM: US ABDOMEN RIGHT UPPER [...] vessel disease. 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 TECHNIQUE: Sagittal T1, [...] to Dr. Aaron on 03/04/2016 11:42 AM CLINICAL GENETICIST. 03/04/2016 MIGUELITO Sue Sacroiliac joints series DX [...] Comments Source Systolic (mm Hg) 151 07/24/2018 [facility] Diastolic (mm Hg) 83 07/24/2018 [facility] Heart Rate 105 07/24/2018 [facility] Temperature Oral (F) 98.8 F 07/24/2018 [facility] Respitory Rate 18 07/24/2018 [facility] Respitory Rate 16 07/24/2018 [facility] Respitory Rate 18 07/24/2018 [facility] Temperature Oral (F) 99.3 F 07/24/2018 [facility] Heart Rate 112 07/24/2018 [facility] Systolic (mm Hg) 146 07/24/2018 [facility] Diastolic (mm Hg) 90 07/24/2018 [facility] Systolic (mm Hg) 139 07/24/2018 [facility] Diastolic (mm Hg) 84 07/24/2018 [facility] Heart Rate 120 07/24/2018 [facility] Temperature Oral (F) 99.8 F 07/24/2018 [facility] BMI Calculated 37.75 07/20/2018 [facility] Weight 115.938 07/20/2018 [facility] Height 175.26 cm 07/20/2018 [facility] Encounters Location Location Details Encounter Type Encounter Number Reason For Visit Attending Provider ADM Date DC Date Status Source [facility] [place] [facility] [id number] Madhuri Gastno 08/08/2014 08/09/2014 [facility] [place] [facility] [place] [facility] [id number] Robert Aaron 03/04/2016 03/05/2016 [facility] [place] [facility] [place] [facility] [id number] Adelfo Luna 12/18/2016 12/19/2016 [facility] [place] [facility] [place] [facility] [id number] Vianney Desai 07/19/2018 07/20/2018 [facility] [place] [facility] Observation [id number] Anuj Vera 07/21/2018 07/24/2018 [facility] [place] [facility] [id number] Robert Aaron 08/17/2018 08/18/2018 [facility] [place] Procedures No Data Provided for This Section Assessment and Plan Assessment and Plan Date Source Extracted from:Title: Surgery Staff Note Author: Anuj Vera DO Date: 07/24/18 Discharge Summary [facility] Completed: Jul, 09:59 by Anuj Vera DO [...] MD on 07/24/2018 03:31 CDT Encounter info: [id number], [facility], Observation, 07/21/2018 - * Final Report [...] gallbladder fossa. IMPRESSION: 1. Unremarkable abdomen. SL: [id number] Signature Line - - Read by: Tavon [...] DO Date: 07/23/18 Progress Note - Daily [facility] Completed: Wednesday, JUL 23, 2018, 13:01 by [...]
[2018-09-14] MEDS ORDERED: SODIUM CHLORIDE 0.9% 1000ML 1,000 ML IV STA (16:56)
[2018-09-14 17:25] LABS: BASOPHILS % 0.3 % (0.0-1.0); EOSINOPHILS # (AUTO) 0.1 (0.0-0.4); EOSINOPHILS % 1.5 % (0.0-6.0); HEMATOCRIT 39.4 % (38.2-49.6); HEMOGLOBIN 13.5 g/dL (14.0-18.0); LYMPHOCYTES # (AUTO) 2.8 (1.0-3.2); LYMPHOCYTES % 30.8 % (18.0-39.1); MEAN CORPUSCULAR HEMOGLOBIN 28.8 pg (28-32); MEAN CORPUSCULAR HGB CONC 34.3 g/dL (31-35); MEAN CORPUSCULAR VOLUME 84.2 fL (81-99); MONOCYTES # (AUTO) 0.6 (0.2-0.8); MONOCYTES % 6.2 % (4.4-11.3); NEUTROPHILS # (AUTO) 5.6 (2.1-6.9); PLATELET COUNT 232 x10e3/uL (140-360); RED BLOOD COUNT 4.68 x10e6/uL (4.3-5.7); RED CELL DISTRIBUTION WIDTH 12.9 % (11.7-14.4)
[2018-09-14] MEDS ORDERED: METRONIDAZOLE 500MG/NS 100ML 100 ML IV SCH (17:30)
[2018-09-14 17:35] LABS: INR 0.92; PROTHROMBIN TIME 12.9 seconds (11.9-14.5)
[2018-09-14] MEDS ORDERED: HYDROMORPHONE 1MG/1ML INJ IV ONE (17:35)
[2018-09-14] MEDS ORDERED: ONDANSETRON HCL INJ 2MG/ML 2ML 2 MG/ML VIAL IV ONE (17:35)
[2018-09-14 17:36] LABS: PARTIAL THROMBOPLASTIN TIME 23.8 seconds (23.8-35.5)
[2018-09-14 17:42] LABS: ALANINE AMINOTRANSFERASE 24 IU/L (0-55); ALBUMIN 3.6 g/dL (3.5-5.0); ALBUMIN/GLOBULIN RATIO 0.9 (0.8-2.0); ALKALINE PHOSPHATASE 98 IU/L (40-150); ANION GAP 16.1 mmol/L (8-16); BLOOD UREA NITROGEN 13 mg/dL (7-26); BUN/CREATININE RATIO 15 (6-25); CARBON DIOXIDE 27 mmol/L (22-29); CHLORIDE 102 mmol/L (98-107); CREATINE KINASE 80 IU/L (30-200); CREATININE, SERUM 0.88 mg/dL (0.72-1.25); EST GLOMERULAR FILTRATION RATE > 60 ML/MIN (60-); GLUCOSE 104 mg/dL (74-118); POTASSIUM 3.1 mmol/L (3.5-5.1); SODIUM 142 mmol/L (136-145)
[2018-09-14] MEDS: PIPER-TAZ 3.375 GM 50 ML IV SCH ×2 (18:10→23:30)
--- OUTSIDE RECORDS SUMMARY | 2018-09-14 18:20 | XMS REPORT | Continuity of Care Document ---
Author Author [place] Address Unknown Phone Unavailable Care Team Providers Care Deli Clerk Name Role Phone Who Can Fix My Car Information [employer] Unavailable Unavailable Problems Problem Status Onset Date Classification Date Reported Comments Source UNK Active 07/19/2018 [facility] CHOLELITHIASIS WITH ACUTE ON CHRONIC CHO Active 07/19/2018 [facility] R10.11 - RIGHT UPPER QUADRANT PAIN Active 07/18/2018 [facility] M25.50 - PAIN IN UNSPECIFIED JOINT Active 03/03/2016 [facility] [place] 720.2 - SACROILIITIS NE Active 10/17/2014 [facility] [place] Bronchitis Resolved Problem 08/19/2018 [facility] [place] GERD (Confirmed) Active Problem 08/19/2018 [facility] [place],[facility], [facility] Hypertension Active Problem 08/19/2018 [facility] [place] Pneumonia Resolved Problem 08/19/2018 [facility] [place] Medications Medication Details Route Status Patient Instructions Ordering Provider Order Date Source Atenolol 25 MG Oral Tablet 25 mg=1 tab, PO, Daily, 0 Refill(s) Active 07/24/2018 [facility] Miralax 17 gm, 1 pkt, Route: PO, Drug form: PWDR, BID, Dosing Weight 115.938, kg, Start date: 07/24/18 9:00:00 CDT, Duration: 30 day, Stop date: 08/22/18 17:00:00 CDTNotes: Dissolve in 8 oz of water or juice. (Same as: Miralax) Inactive 07/24/2018 [facility] Zosyn 3.375 gm, Route: IVPB, ABXQ8H, Dosing Weight 115.938, kg, CrCl >=20 ml/min infuse over 4 hours, Start date: 07/23/18 23:00:00 CDT, Duration: 5 day, Stop date: 07/28/18 15:00:00 CDT, ABX Indication: Surgical ProphylaxisNotes: (Same as: Zosyn) Dosing based on Piperacillin component MEDICATION WASTE Product Size: 3375 mg Product Wasted: ___ mg No Longer Active 07/24/2018 [facility] Atenolol 25 mg, 1 tab, Route: PO, Drug form: TAB, Daily, Dosing Weight 115.938, kg, Start date: 07/22/18 9:00:00 CDT, Duration: 30 day, Stop date: 08/20/18 9:00:00 CDTNotes: (Same As:Tenormin) No Longer Active 07/22/2018 [facility] Acetaminophen 650 mg, 2 tab, Route: PO, Drug form: TAB, Q6H, Dosing Weight 115.938, kg, PRN Pain 1-3/Temp > 100.4 F, Start date: 07/22/18 5:55:00 CDT, Duration: 30 day, Stop date: 08/21/18 5:54:00 CDTNotes: Do not exceed 4 gm/day. (Same as: Tylenol) No Longer Active 07/22/2018 [facility] ketOROLAC 30 mg/mL injectable solution 30 [...] Wasted: ___ mg No Longer Active 07/22/2018 [facility] Famotidine 20 mg, 1 tab, Route: PO, Drug form: TAB, Q12H, Dosing Weight 115.938, kg, Start date: 07/21/18 21:00:00 CDT, Duration: 30 day, Stop date: 08/20/18 9:00:00 CDTNotes: (Same as: Pepcid) No Longer Active 07/22/2018 [facility] Lisinopril 40 mg, 2 tab, Route: PO, Drug form: TAB, Daily, Dosing Weight 115.938, kg, Priority: NOW, Start date: 07/21/18 19:52:00 CDT, Duration: 30 day, Stop date: 08/20/18 9:00:00 CDTNotes: (Same as: Prinivil, Zestril) No Longer Active 07/22/2018 [facility] Dilaudid 0.5 mg, 0.5 mL, Route: IVP, Drug form: INJ, Q2H, Dosing Weight 115.938, kg, PRN Pain Score 7-10, Start date: 07/21/18 18:00:00 CDT, Duration: 30 day, Stop date: 08/20/18 17:59:00 CDTNotes: Same as: Dilaudid No Longer Active 07/21/2018 [facility] Zosyn 3.375 gm, Route: IVPB, ABXQ8H, Dosing Weight 115.938, kg, CrCl >=20 ml/min infuse over 4 hours, Start date: 07/21/18 15:00:00 CDT, Duration: 1 day, Stop date: 07/22/18 7:00:00 CDT, ABX Indication: Surgical ProphylaxisNotes: (Same as: Zosyn) Dosing based on Piperacillin component MEDICATION WASTE Product Size: 3375 mg Product Wasted: ___ mg No Longer Active 07/21/2018 [facility] Acetaminophen 21.7 MG/ML / Hydrocodone Bitartrate 0.5 MG/ML Oral Solution 15 mL, Route: PO, Drug Form: SOLN, Dosing Weight 115.938, kg, Q4H, PRN Pain Score 4-6, Start date: 07/21/18 14:47:00 CDT, Duration: 30 day, Stop date: 08/20/18 14:46:00 CDTNotes: Do not exceed 4gm/day of acetaminophen. (Same as: [place] 325/7.5) No Longer Active 07/21/2018 [facility] Ondansetron 4 mg, 2 mL, Route: IVP, Drug form: INJ, Q12H, Dosing Weight 115.938, kg, PRN Nausea & Vomiting, Start date: 07/21/18 14:47:00 CDT, Duration: 30 day, Stop date: 08/20/18 14:46:00 CDTNotes: (Same as: Gagan) MEDICATION WASTE Product Size: 4 mg Product Wasted: ___ mg No Longer Active 07/21/2018 [facility] Calcium Chloride 0.0014 MEQ/ML / Potassium Chloride 0.004 MEQ/ML / Sodium Chloride 0.103 MEQ/ML / Sodium Lactate 0.028 MEQ/ML Injectable Solution 1,000 mL, Rate: 125 ml/hr, Infuse over: 8 hr, Route: IV, Dosing Weight 115.938 kg, Total Volume: 1,000, Start date: 07/21/18 14:47:00 CDT, Duration: 30 day, Stop date: 08/20/18 14:46:00 CDT, 2.4, m2 No Longer Active 07/21/2018 [facility] glycopyrrolate (ANES) Route: IV, Drug form: INJ, ONCE, Stop date: 07/21/18 14:17:00 CDT Inactive 07/21/2018 [facility] neostigmine (ANES) Route: IV, Drug form: INJ, ONCE, Stop date: 07/21/18 14:17:00 CDT Inactive 07/21/2018 [facility] Ondansetron 4 mg, Route: IVP, ONCE, Dosing Weight 115.938, kg, PRN Nausea & Vomiting, Start date: 07/21/18 13:38:00 CDT Inactive 07/21/2018 [facility] Flumazenil 0.2 mg, Route: IVP, PRN, Dosing Weight 115.938, kg, PRN Benzodiazepine Reversal, Initial dose, Start date: 07/21/18 13:38:00 CDT, Duration: 30 day, Stop date: 08/20/18 13:37:00 CDT Inactive 07/21/2018 [facility] Naloxone 0.4 mg, Route: IVP, Q2MIN, Dosing Weight 115.938, kg, PRN Narcotic Reversal, Start date: 07/21/18 13:38:00 CDT, Duration: 8 doses or times, Stop date: Limited # of times Inactive 07/21/2018 [facility] Hydromorphone 0.5 mg, Route: IVP, Q5Min, Dosing Weight 115.938, kg, PRN Pain Score 7-10, Start date: 07/21/18 13:38:00 CDT, Duration: 4 doses or times, Stop date: Limited # of times Inactive 07/21/2018 [facility] Fentanyl 25 microgram, Route: IVP, Q5Min, Dosing Weight 115.938, kg, PRN Pain Score 4-6, Priority: Routine, Start date: 07/21/18 13:38:00 CDT, Duration: 4 doses or times, Stop date: Limited # of times Inactive 07/21/2018 [facility] phenylephrine (ANES) Route: IV, Drug form: INJ, ONCE, Stop date: 07/21/18 13:13:00 CDT Inactive 07/21/2018 [facility] metoprolol (ANES) Route: IV, Drug form: INJ, ONCE, Stop date: 07/21/18 11:43:00 CDT Inactive 07/21/2018 [facility] ceFAZolin (ANES) Route: IV, Drug form: INJ, ONCE, Stop date: 07/21/18 11:33:00 CDT Inactive 07/21/2018 [facility] dexamethasone (ANES) Route: IV, Drug form: INJ, ONCE, Stop date: 07/21/18 11:33:00 CDT Inactive 07/21/2018 [facility] fentaNYL (ANES) Route: IV, Drug form: INJ, ONCE, Stop date: 07/21/18 11:22:00 CDT Inactive 07/21/2018 [facility] propofol (ANES) Route: IV, Drug form: INJ, ONCE, Stop date: 07/21/18 11:22:00 CDT Inactive 07/21/2018 [facility] rocuronium (ANES) Route: IV, Drug form: INJ, ONCE, Stop date: 07/21/18 11:22:00 CDT Inactive 07/21/2018 [facility] midazolam (ANES) Route: IV, Drug form: SOLN, ONCE, Stop date: 07/21/18 11:22:00 CDT Inactive 07/21/2018 [facility] Lactated Ringers Injection IV (ANES) 1000 mL Route: IV, Total Volume: 1,000, Start date: 07/21/18 10:10:00 CDT, Stop date: 07/21/18 11:10:00 CDT Inactive 07/21/2018 [facility] 72 HR Scopolamine 0.0139 MG/HR Transdermal Patch 1 patch, Route: TOP, Drug Form: ERFILM, Dosing Weight 115.938, kg, ONCE, Start date: 07/21/18 10:10:00 CDT, Stop date: 07/21/18 10:10:00 CDT Inactive 07/21/2018 [facility] Calcium Chloride 0.0014 MEQ/ML / Potassium Chloride 0.004 MEQ/ML / Sodium Chloride 0.103 MEQ/ML / Sodium Lactate 0.028 MEQ/ML Injectable Solution 1,000 mL, Rate: 25 ml/hr, Infuse over: 40 hr, Route: IV, Dosing Weight 115.938 kg, Total Volume: 1,000, Start date: 07/21/18 10:09:00 CDT, Duration: 30 day, Stop date: 08/20/18 10:08:00 CDT, 2.4, m2 Inactive 07/21/2018 [facility] Nexium PO, Daily, 0 Refill(s) Active 07/20/2018 [facility] lisinopril 40 mg oral tablet 40 mg=1 tab, PO, Daily, 0 Refill(s) Active 07/20/2018 [facility] Atenolol 25 MG Oral Tablet 25 mg=1 tab, PO, Daily, 0 Refill(s) Active 07/20/2018 [facility] Allergies, Adverse Reactions, Alerts Substance Category Reaction Severity Reaction type Status Date Reported Comments Source No Known Medication Allergies Assertion Drug allergy [facility] Immunizations No Data Provided for This Section Results Order Name Results Value Reference Range Date Interpretation Comments Source CHEM PANEL Calcium Lvl 8.4 8.5 - 10.5 07/24/2018 [facility] CHEM PANEL Total Protein 6.8 6.4 - 8.4 07/24/2018 [facility] CHEM PANEL Albumin Lvl 2.3 3.5 - 5.0 07/24/2018 [facility] CHEM PANEL eGFR 87 07/24/2018 Result [...] PANEL AGAP 11.0 10.0 - 20.0 07/24/2018 [facility] CHEM PANEL B/C Ratio 19 6 - 25 07/24/2018 [facility] CHEM PANEL A/G Ratio 0.5 0.7 - 1.6 07/24/2018 [facility] CHEM PANEL ALT 88 0 - 65 07/24/2018 [facility] CHEM PANEL AST 25 0 - 37 07/24/2018 [facility] CHEM PANEL Alk Phos 96 39 - 136 07/24/2018 [facility] CHEM PANEL Bili Total 1.1 0.2 - 1.3 07/24/2018 [facility] CHEM PANEL Sodium Lvl 144 135 - 145 07/24/2018 [facility] CHEM PANEL Potassium Lvl 4.0 3.5 - 5.1 07/24/2018 [facility] CHEM PANEL BUN 18 7 - 22 07/24/2018 [facility] CHEM PANEL Creatinine Lvl 0.97 0.50 - 1.40 07/24/2018 [facility] CHEM PANEL Glucose Lvl 103 70 - 99 07/24/2018 [facility] CHEM PANEL Chloride Lvl 107 95 - 109 07/24/2018 [facility] CHEM PANEL CO2 30 24 - 32 07/24/2018 [facility] HEMATOLOGY MCHC 32.7 32.0 - 36.0 07/24/2018 [facility] HEMATOLOGY MCV 90.4 80.0 - 94.0 07/24/2018 [facility] HEMATOLOGY RDW 13.0 11.5 - 14.5 07/24/2018 [facility] HEMATOLOGY MCH 29.6 27.0 - 31.0 07/24/2018 [facility] HEMATOLOGY Hct 36.9 42.0 - 54.0 07/24/2018 [facility] HEMATOLOGY RBC 4.08 4.70 - 6.10 07/24/2018 [facility] HEMATOLOGY Hgb 12.1 14.0 - 18.0 07/24/2018 [facility] HEMATOLOGY MPV 8.9 7.4 - 10.4 07/24/2018 [facility] HEMATOLOGY Platelet 216 133 - 450 07/24/2018 [facility] HEMATOLOGY WBC 17.1 3.7 - 10.4 07/24/2018 [facility] CHEM PANEL eGFR 97 07/23/2018 Result [...] should be multiplied by the estimated BMI. [facility] CHEM PANEL A/G Ratio 0.6 0.7 - 1.6 07/23/2018 [facility] CHEM PANEL Globulin 4.3 2.7 - 4.2 07/23/2018 [facility] CHEM PANEL B/C Ratio 23 6 - 25 07/23/2018 [facility] CHEM PANEL AGAP 9.5 10.0 - 20.0 07/23/2018 [facility] CHEM PANEL Bili Total 1.1 0.2 - 1.3 07/23/2018 [facility] CHEM PANEL Alk Phos 104 39 - 136 07/23/2018 [facility] CHEM PANEL AST 31 0 - 37 07/23/2018 [facility] CHEM PANEL ALT 110 0 - 65 07/23/2018 [facility] CHEM PANEL Albumin Lvl 2.5 3.5 - 5.0 07/23/2018 [facility] CHEM PANEL Total Protein 6.8 6.4 - 8.4 07/23/2018 [facility] CHEM PANEL Calcium Lvl 8.3 8.5 - 10.5 07/23/2018 [facility] CHEM PANEL CO2 31 24 - 32 07/23/2018 [facility] CHEM PANEL Chloride Lvl 103 95 - 109 07/23/2018 [facility] CHEM PANEL Potassium Lvl 3.5 3.5 - 5.1 07/23/2018 [facility] CHEM PANEL Glucose Lvl 120 70 - 99 07/23/2018 [facility] CHEM PANEL Sodium Lvl 140 135 - 145 07/23/2018 [facility] CHEM PANEL Creatinine Lvl 0.84 0.50 - 1.40 07/23/2018 [facility] CHEM PANEL BUN 19 7 - 22 07/23/2018 [facility] HEMATOLOGY Eosinophils 0.2 0.0 - 4.0 07/23/2018 [facility] HEMATOLOGY Monocytes 5.8 2.0 - 12.0 07/23/2018 [facility] Segs 85.5 45.0 - 75.0 07/23/2018 [facility] Neutrophils # 16.6 1.5 - 8.1 07/23/2018 [facility] Lymphocytes 8.2 20.0 - 40.0 07/23/2018 [facility] Basophils # 0.1 0.0 - 0.2 07/23/2018 [facility] Basophils 0.3 0.0 - 1.0 07/23/2018 [facility] Monocytes # 1.1 0.0 - 0.8 07/23/2018 [facility] Lymphocytes # 1.6 1.0 - 5.5 07/23/2018 [facility] Hgb 12.7 14.0 - 18.0 07/23/2018 [facility] WBC 19.4 3.7 - 10.4 07/23/2018 [facility] Hct 38.3 42.0 - 54.0 07/23/2018 [facility] RBC 4.31 4.70 - 6.10 07/23/2018 [facility] MCH 29.5 27.0 - 31.0 07/23/2018 [facility] MCV 88.8 80.0 - 94.0 07/23/2018 [facility] MPV 8.5 7.4 - 10.4 07/23/2018 [facility] Platelet 193 133 - 450 07/23/2018 [facility] RDW 13.1 11.5 - 14.5 07/23/2018 [facility] MCHC 33.2 32.0 - 36.0 07/23/2018 [facility] CHEM PANEL eGFR 94 07/22/2018 Result [...] should be multiplied by the estimated BMI. [facility] CHEM PANEL AST 231 0 - 37 07/22/2018 [facility] CHEM PANEL Alk Phos 161 39 - 136 07/22/2018 [facility] CHEM PANEL Bili Total 1.5 0.2 - 1.3 07/22/2018 [facility] CHEM PANEL Calcium Lvl 8.1 8.5 - 10.5 07/22/2018 [facility] CHEM PANEL Total Protein 7.2 6.4 - 8.4 07/22/2018 [facility] CHEM PANEL Albumin Lvl 3.2 3.5 - 5.0 07/22/2018 [facility] CHEM PANEL Creatinine Lvl 0.91 0.50 - 1.40 07/22/2018 [facility] CHEM PANEL Sodium Lvl 140 135 - 145 07/22/2018 [facility] CHEM PANEL Potassium Lvl 3.7 3.5 - 5.1 07/22/2018 [facility] CHEM PANEL Chloride Lvl 103 95 - 109 07/22/2018 [facility] CHEM PANEL CO2 28 24 - 32 07/22/2018 [facility] CHEM PANEL Glucose Lvl 135 70 - 99 07/22/2018 [facility] CHEM PANEL BUN 11 7 - 22 07/22/2018 [facility] CHEM PANEL ALT 295 0 - 65 07/22/2018 [facility] CHEM PANEL A/G Ratio 0.8 0.7 - 1.6 07/22/2018 [facility] CHEM PANEL AGAP 12.7 10.0 - 20.0 07/22/2018 [facility] CHEM PANEL B/C Ratio 12 6 - 25 07/22/2018 [facility] CHEM PANEL Globulin 4.0 2.7 - 4.2 07/22/2018 [facility] HEMATOLOGY Monocytes # 1.1 0.0 - 0.8 07/22/2018 [facility] Lymphocytes # 1.6 1.0 - 5.5 07/22/2018 [facility] Segs 83.7 45.0 - 75.0 07/22/2018 [facility] Lymphocytes 9.6 20.0 - 40.0 07/22/2018 [facility] Basophils 0.1 0.0 - 1.0 07/22/2018 [facility] Neutrophils # 14.1 1.5 - 8.1 07/22/2018 [facility] Monocytes 6.6 2.0 - 12.0 07/22/2018 [facility] MCHC 33.1 32.0 - 36.0 07/22/2018 [facility] RDW 12.9 11.5 - 14.5 07/22/2018 [facility] MPV 8.8 7.4 - 10.4 07/22/2018 [facility] Platelet 234 133 - 450 07/22/2018 [facility] MCV 88.8 80.0 - 94.0 07/22/2018 [facility] Hgb 14.5 14.0 - 18.0 07/22/2018 [facility] RBC 4.94 4.70 - 6.10 07/22/2018 [facility] WBC 16.8 3.7 - 10.4 07/22/2018 [facility] Hct 43.9 42.0 - 54.0 07/22/2018 [facility] MCH 29.4 27.0 - 31.0 07/22/2018 [facility] Pathology Reports No Data Provided for [...] pneumonia and small left pleural effusion. 08/17/2018 [facility] Chest 2 views DX Clinical Indication: - [...] lobe infiltrate and small left effusion. SL: [id number] 07/24/2018 [facility] Abdomen AP DX Clinical Indication: - [...] gallbladder fossa. IMPRESSION: 1. Unremarkable abdomen. SL: [id number] 07/24/2018 [facility] RUQ US EXAM: US ABDOMEN [...] vessel disease. No acute intracranial abnormality 12/18/2016 [facility] Spine lumbar wo contrast MRI MRI LUMBAR SPINE WITHOUT CONTRAST 03/04/2016 8:12 AM HAMMERER COMPARISON: 08/08/2014 radiograph exam. TECHNIQUE: Sagittal T1, [...] to Dr. Aaron on 03/04/2016 11:42 AM HAMMERER. 03/04/2016 MIGUELITO Sue Sacroiliac joints series DX [...] Comments Source Systolic (mm Hg) 151 07/24/2018 [facility] Diastolic (mm Hg) 83 07/24/2018 [facility] Heart Rate 105 07/24/2018 [facility] Temperature Oral (F) 98.8 F 07/24/2018 [facility] Respitory Rate 18 07/24/2018 [facility] Respitory Rate 16 07/24/2018 [facility] Respitory Rate 18 07/24/2018 [facility] Temperature Oral (F) 99.3 F 07/24/2018 [facility] Heart Rate 112 07/24/2018 [facility] Systolic (mm Hg) 146 07/24/2018 [facility] Diastolic (mm Hg) 90 07/24/2018 [facility] Systolic (mm Hg) 139 07/24/2018 [facility] Diastolic (mm Hg) 84 07/24/2018 [facility] Heart Rate 120 07/24/2018 [facility] Temperature Oral (F) 99.8 F 07/24/2018 [facility] BMI Calculated 37.75 07/20/2018 [facility] Weight 115.938 07/20/2018 [facility] Height 175.26 cm 07/20/2018 [facility] Encounters Location Location Details Encounter Type Encounter Number Reason For Visit Attending Provider ADM Date DC Date Status Source [facility] [place] [facility] [id number] Madhuri Gaston 08/08/2014 08/09/2014 [facility] [place] [facility] [place] [facility] [id number] Robert Aaron 03/04/2016 03/05/2016 [facility] [place] [facility] [place] [id number] Adelfo Luna 12/18/2016 12/19/2016 [facility] [place] [place] [facility] [id number] Vianney Desai 07/19/2018 07/20/2018 [facility] [place] [facility] Observation [id number] Anuj Vera 07/21/2018 07/24/2018 [facility] [place] [id number] Robert Aaron 08/17/2018 08/18/2018 [facility] Procedures No Data Provided for This Section Assessment and Plan Assessment and Plan Date Source Extracted from:Title: Surgery Staff Note Author: Anuj Vera DO Date: 07/24/18 Discharge Summary [facility] Completed: Jul, 09:59 by Anuj Vera DO [...] MD on 07/24/2018 03:31 CDT Encounter info: [id number], [facility], Observation, 07/21/2018 - * Final Report * [...] gallbladder fossa. IMPRESSION: 1. Unremarkable abdomen. SL: [id number] Signature Line - - Read by: Tavon [...] DO Date: 07/23/18 Progress Note - Daily [facility] Completed: Wednesday, JUL 23, 2018, 13:01 by [...]
[2018-09-14 18:21] LABS: BILIRUBIN,URINE SMALL (NEGATIVE); CLARITY,URINE SL CLOUDY (CLEAR); COLOR,URINE YELLOW (YELLOW); KETONES,URINE NEGATIVE (NEGATIVE); LEUKOCYTE ESTERASE ,URINE NEGATIVE (NEGATIVE); NITRITE,URINE NEGATIVE (NEGATIVE); PROTEIN,URINE DIPSTICK 1+ (NEGATIVE); URINE UROBILINOGEN 0.2 mg/dL (0.2 - 1)
--- NOTE | 2018-09-14 18:28 | Diagnostic Imaging Report ---
EXAMINATION: CHEST SINGLE (PORTABLE) INDICATION: ^fever ^[id number] ^[id number] COMPARISON: None FINDINGS: AP view TUBES and LINES: None. LUNGS: Lungs are well inflated. There is no evidence of pneumonia or pulmonary edema. PLEURA: No pleural effusion or pneumothorax. HEART AND MEDIASTINUM: The cardiomediastinal silhouette is unremarkable. BONES AND SOFT TISSUES: No acute osseous lesion. Curvilinear density overlying left lateral costophrenic angle, probably external to patient. UPPER ABDOMEN: No free air under the diaphragm. IMPRESSION: No acute thoracic abnormality. Signed by: Dr. Goyo Najera MD on 09/14/2018 6:25 PM
[2018-09-14 18:42] LABS: BACTERIA,URINE FEW /HPF; EPITHELIAL CELLS,URINE FEW /LPF; MUCUS,URINE MODERATE (RARE)
[2018-09-14 19:00] VITALS: BP 161/90
--- NOTE | 2018-09-14 19:00 | NUR ---
PT FROM ER VIA STRETCHER STABLE CONDITION
--- NOTE | 2018-09-14 19:00 | NUR ---
patient is a new admit that arrived via wheelchair. patient is awake and talking. patient has been transferred into the bed. bed is in the lowest position and call harrison is within reach. will continue to monitor patient.
[2018-09-14] MEDS ORDERED: NEXIUM40 MG PO (19:58)
[2018-09-14] MEDS: SODIUM CHLORIDE 0.9% 1000ML 1,000 ML IV SCH (20:20)
[2018-09-14 20:29] VITALS: BP 161/90
[2018-09-14] MEDS: METRONIDAZOLE 500MG/NS 100ML 100 ML IV SCH (21:02)
[2018-09-14] MEDS: ONDANSETRON HCL INJ 2MG/ML 2ML 2 MG/ML VIAL IV PRN (22:23)
[2018-09-14] MEDS: HYDROMORPHONE 1MG/1ML INJ IV PRN (22:23)
[2018-09-15] VITALS (10 sets, daily range): BP systolic 124–171; BP diastolic 81–102
--- NOTE | 2018-09-15 | NUR ---
patients blood pressure is elevated. consulted physician gave new orders to resume patients home blood pressure medicines. will continue to monitor patients blood pressure.
--- NOTE | 2018-09-15 00:14 | NUR ---
received new order from consulting physician to give patient 40meq of potassium chloride now, and then another 40meq one hour after the first dose. will continue to monitor patient's potassium level.
[2018-09-15] MEDS ORDERED: POTASSIUM CHLORIDE 10MEQ EA PO ONE ×2 (00:15→01:30)
[2018-09-15] MEDS ORDERED: ATENOLOL 50 MG TAB PO ONE (00:30)
[2018-09-15] MEDS ORDERED: LISINOPRIL 20 MG TAB PO ONE (00:30)
[2018-09-15] MEDS: SODIUM CHLORIDE 0.9% 1000ML 1,000 ML IV SCH ×3 (01:36→20:31)
[2018-09-15] MEDS: METRONIDAZOLE 500MG/NS 100ML 100 ML IV SCH ×4 (02:17→20:32)
[2018-09-15] MEDS: ONDANSETRON HCL INJ 2MG/ML 2ML 2 MG/ML VIAL IV PRN ×5 (02:26→19:25)
[2018-09-15] MEDS: HYDROMORPHONE 1MG/1ML INJ IV PRN ×5 (02:26→19:25)
--- NOTE | 2018-09-15 04:30 | NUR ---
patient has signed consent form for I and R consult.
[2018-09-15] MEDS: PIPER-TAZ 3.375 GM 50 ML IV SCH ×3 (05:21→18:00)
[2018-09-15 05:34] LABS: BASOPHILS % 0.3 % (0.0-1.0); EOSINOPHILS # (AUTO) 0.2 (0.0-0.4); EOSINOPHILS % 2.2 % (0.0-6.0); HEMATOCRIT 39.2 % (38.2-49.6); HEMOGLOBIN 12.9 g/dL (14.0-18.0); LYMPHOCYTES # (AUTO) 2.9 (1.0-3.2); LYMPHOCYTES % 32.2 % (18.0-39.1); MEAN CORPUSCULAR HEMOGLOBIN 28.2 pg (28-32); MEAN CORPUSCULAR HGB CONC 32.9 g/dL (31-35); MEAN CORPUSCULAR VOLUME 85.6 fL (81-99); MONOCYTES # (AUTO) 0.7 (0.2-0.8); NEUTROPHILS # (AUTO) 5.1 (2.1-6.9); PLATELET COUNT 197 x10e3/uL (140-360); RED BLOOD COUNT 4.58 x10e6/uL (4.3-5.7); RED CELL DISTRIBUTION WIDTH 12.9 % (11.7-14.4)
[2018-09-15 05:57] LABS: ALANINE AMINOTRANSFERASE 23 IU/L (0-55); ALBUMIN 3.2 g/dL (3.5-5.0); ALBUMIN/GLOBULIN RATIO 0.9 (0.8-2.0); ALKALINE PHOSPHATASE 87 IU/L (40-150); ANION GAP 12.7 mmol/L (8-16); BLOOD UREA NITROGEN 11 mg/dL (7-26); BUN/CREATININE RATIO 14 (6-25); CALCIUM 8.3 mg/dL (8.4-10.2); CARBON DIOXIDE 26 mmol/L (22-29); CHLORIDE 104 mmol/L (98-107); CREATININE, SERUM 0.78 mg/dL (0.72-1.25); EST GLOMERULAR FILTRATION RATE > 60 ML/MIN (60-); GLUCOSE 90 mg/dL (74-118); POTASSIUM 3.7 mmol/L (3.5-5.1); SODIUM 139 mmol/L (136-145)
--- NOTE | 2018-09-15 06:47 | NUR ---
report given to day nurse. patient is resting comfortably in bed. bed is in lowest position and call light is within reach.
--- NOTE | 2018-09-15 07:30 | NUR ---
PT UP IN CHAIR C/O WILSON,MEDICATED.
[2018-09-15] MEDS: LISINOPRIL 20 MG TAB PO SCH (08:46)
[2018-09-15] MEDS: ATENOLOL 50 MG TAB PO SCH (08:46)
[2018-09-15] MEDS ORDERED: LISINOPRIL 10 MG TAB PO SCH (09:00)
[2018-09-15] MEDS ORDERED: LIDOCAINE HCL 1% LOCAL INJ 20 ML VIAL ONE (11:26)
[2018-09-15] MEDS ORDERED: SODIUM CHLORIDE 0.9% 250ML 250 ML ONE (11:27)
--- NOTE | 2018-09-15 11:30 | NUR ---
pt transported to [facility] via w/c
[2018-09-15] MEDS ORDERED: MIDAZOLAM HCL 2 MG/2 ML VIAL ONE (11:52)
[2018-09-15] MEDS ORDERED: FENTANYL CITRATE/PF 100MCG/2 ML INJ ONE (11:52)
[2018-09-15] MEDS ORDERED: IOPAMIDOL 300 MG/ML 15ML VIAL IT ONE (12:59)
--- NOTE | 2018-09-15 13:30 | NUR ---
PT RETURNED TO ROOM VIA W/C,DRAIN BAG TO UPPER MID RT ABD,400 CC BROWN DRAINAGE NOTED,PAIN LEVEL 5
[2018-09-15 14:54] LABS: BODY FLUID COLOR STRAW
[2018-09-15 14:55] LABS: BODY FLUID APPEARANCE TURBID; BODY FLUID TYPE GALLBLADDER; RBC,BODY FLUID 8514 cells/uL; WBC,BODY FLUID 22473 cells/uL
[2018-09-15 16:07] LABS: BODY FLUID APPEARANCE TURBID; BODY FLUID COLOR GREEN; BODY FLUID TYPE GALLBLADDER
[2018-09-15 16:09] LABS: RBC,BODY FLUID 941 cells/uL; WBC,BODY FLUID 7450 cells/uL
--- NOTE | 2018-09-15 16:55 | Diagnostic Imaging Report ---
PROCEDURE: 1. Drainage catheter placement (left hepatic) 2. Fluid collection aspiration (gallbladder fossa) Procedural Personnel Attending physician(s): Alfreda Seymour MD Fellow physician(s): None Resident physician(s): None Advanced practice provider(s): None Pre-procedure diagnosis: Postoperative abdominal fluid collections Post-procedure diagnosis: Same Indication: Post-operative fluid collections Additional clinical history: None Complications: No immediate complications. IMPRESSION: 1. Percutaneous aspiration of gallbladder fossa postoperative fluid collection. 2. Percutaneous placement of a 10 [place] drainage catheter into the left hepatic postoperative fluid collection. 3. Fluid from both collections sent for microbiology, total bilirubin, amylase and lipase. Plan: Patient will be OK to discharge with drain in place. Plan for CT in 2-3 weeks with subsequent drain removal if collection resolved. PROCEDURE SUMMARY: - Left hepatic drainage catheter placement under sonographic and fluoroscopic guidance - Additional procedure(s): Gallbladder fossa fluid collection aspiration via 20g needle. PROCEDURE DETAILS: Pre-procedure Consent: Informed consent for the procedure including risks, benefits and alternatives was obtained and time-out was performed prior to the procedure. Preparation: The site was prepared and draped using maximal sterile barrier technique including cutaneous antisepsis. Anesthesia/sedation Level of anesthesia/sedation: Moderate sedation (conscious sedation) Anesthesia/sedation administered by: Independent trained observer under attending supervision with continuous monitoring of the patient?s level of consciousness and physiologic status Total intra-service sedation time (minutes): 60 Drainage catheter placement The patient was positioned supine. Initial imaging was performed. Local anesthesia was administered. The left hepatic fluid collection was accessed using trocar technique and a drainage catheter was placed. Position of the drainage catheter within the fluid collection was confirmed. - Initial imaging findings: Left hepatic fluid collection - Drainage catheter placed: 10Fr Uresil - External catheter securement: Non-absorbable suture - Post-drainage imaging findings: Near-complete drainage of the fluid -Subsequent contrast injection via the drainage catheter shows no definite communication with the biliary system. Fluid collection aspiration Initial imaging was performed. Local anesthesia was administered. The gallbladder fossa fluid collection was accessed using a 20g spinal needle terminally aspirated, yielding 10cc of bilious fluid. Post-aspiration imaging shows resolution of the collection. Contrast Contrast agent: Isovue Contrast volume (mL): 15 Radiation Dose Fluoroscopy time (minutes): 0.8 Reference air kerma (mGy): 22.5 Additional Details Additional description of procedure: None Equipment details: None Specimens removed: Aspirated fluid was sent for analysis. Estimated blood loss (mL): Less than 10 Standardized report: [email or web address] Attestation Signer name: Alfreda Seymour MD I attest that I was present for the entire procedure. I reviewed the stored images and agree with the report as written. Signed by: Alfreda Seymour MD on 09/15/2018 4:52 PM
--- NOTE | 2018-09-15 17:30 | NUR ---
PT UP IN BED ,PAIN LEVEL 3 NO DISTRESS NTOED,DRAIN BAG IN PLACE
[2018-09-15 17:32] LABS: LYMPHOCYTES,BODY FLUID 20 %; NEUTROPHILS,BODY FLUID 10 %; OTHER CELLS,BODY FLUID 70 %
[2018-09-15 17:38] LABS: BASOPHILS,BODY FLUID 0 %; MONO/MACROPHG,BODY FLUID 0 %
[2018-09-15 17:39] LABS: LYMPHOCYTES,BODY FLUID 16 %; NEUTROPHILS,BODY FLUID 4 %; OTHER CELLS,BODY FLUID 80 %
[2018-09-15 17:41] LABS: BASOPHILS,BODY FLUID 0 %; MONO/MACROPHG,BODY FLUID 0 %
--- NOTE | 2018-09-15 19:00 | NUR ---
received report from day nurse. patient is resting comfortably in bed. bed is in lowest position and call harrison is within reach. will continue to monitor patient.
[2018-09-16] VITALS (8 sets, daily range): BP systolic 120–168; BP diastolic 72–94
[2018-09-16] MEDS: HYDROMORPHONE 1MG/1ML INJ IV PRN ×6 (00:26→22:56)
[2018-09-16] MEDS: ONDANSETRON HCL INJ 2MG/ML 2ML 2 MG/ML VIAL IV PRN ×4 (00:26→14:35)
[2018-09-16] MEDS: PIPER-TAZ 3.375 GM 50 ML IV SCH ×5 (00:26→23:07)
[2018-09-16] MEDS: METRONIDAZOLE 500MG/NS 100ML 100 ML IV SCH ×4 (03:04→20:31)
--- NOTE | 2018-09-16 06:50 | NUR ---
RECEIVED PATIENT RESTING IN BED. NO ACUTE DISTRESS NOTED. FAMILY MEMBER AT THIS TIME. PAIN AT A TOLERABLE LEVEL AT THIS TIME. CALL LIGHT WITHIN REACH. BED IN THE LOWEST POSITION.
--- NOTE | 2018-09-16 07:14 | NUR ---
report given to day nurse. patient is resting comfortably in bed. bed is in lowest position and call harrison is within reach.
[2018-09-16] MEDS: LISINOPRIL 20 MG TAB PO SCH (08:43)
[2018-09-16] MEDS: ATENOLOL 50 MG TAB PO SCH (08:44)
[2018-09-16] MEDS ORDERED: BUPIVACAINE HCL 0.5% INJ 30 ML VIAL INJ ONE (10:15)
[2018-09-16] MEDS ORDERED: NEOSTIGMINE 1 MG/ML 10ML VIAL ONE (10:15)
[2018-09-16] MEDS ORDERED: DEXAMETHASONE SOD PHOS INJ 4 MG/ML VIAL ONE (10:15)
[2018-09-16] MEDS: SODIUM CHLORIDE 0.9% 1000ML 1,000 ML IV SCH ×3 (12:15→22:55)
--- NOTE | 2018-09-16 17:26 | NUR ---
PAGEMaria Guadalupe WASHBURN IN REGARDS TO IR CONSULT. WAITING DIETITIAN BACK Addendum: 09/16/18 at 1857 by AMPARO PEÑA RN WRONG PATIENT.
--- NOTE | 2018-09-16 18:15 | NUR ---
MARY WASHBURN A SECOND TIME IN REGARDS TO IR CONSULT. Addendum: 09/16/18 at 1857 by AMPARO PEÑA RN WRONG PATIENT.
--- NOTE | 2018-09-16 18:58 | NUR ---
REPORT GIVEN TO ONCOMING NURSE. PATIENT IS IN STABLE CONDITION. WALKING TO THE BATHROOM AT THIS TIME. AT BEDSIDE.
[2018-09-17] VITALS (8 sets, daily range): BP systolic 146–166; BP diastolic 91–98
[2018-09-17] MEDS: METRONIDAZOLE 500MG/NS 100ML 100 ML IV SCH ×4 (02:35→20:02)
[2018-09-17] MEDS: ONDANSETRON HCL INJ 2MG/ML 2ML 2 MG/ML VIAL IV PRN ×2 (02:58→20:40)
[2018-09-17] MEDS: HYDROMORPHONE 1MG/1ML INJ IV PRN ×6 (02:58→20:40)
[2018-09-17] MEDS: PIPER-TAZ 3.375 GM 50 ML IV SCH ×4 (05:21→23:05)
--- NOTE | 2018-09-17 06:58 | NUR ---
RECEIVED PATIENT RESTING IN BED. NO ACUTE DISTRESS NOTED. PAIN AT A TOLERABLE LEVEL AT THIS TIME. CALL LIGHT WITHIN REACH. BED IN THE LOWEST POSITION.
[2018-09-17] MEDS: ATENOLOL 50 MG TAB PO SCH (08:12)
[2018-09-17] MEDS: LISINOPRIL 20 MG TAB PO SCH (08:12)
[2018-09-17] MEDS: ACETAMINOPHEN 325 MG TAB PO PRN ×3 (10:31→20:00)
[2018-09-17] MEDS: SODIUM CHLORIDE 0.9% 1000ML 1,000 ML IV SCH ×3 (14:15→22:01)
--- NOTE | 2018-09-17 18:56 | NUR ---
Report given to oncoming nurse. Walking rounds done. Patient is resting in bed. No acute distress noted. Pain at a tolerable level at this time. Call light within reach. Bed in the lowest position.
[2018-09-18] VITALS (8 sets, daily range): BP systolic 144–167; BP diastolic 63–99
[2018-09-18] MEDS: HYDROMORPHONE 1MG/1ML INJ IV PRN ×5 (01:31→20:30)
[2018-09-18] MEDS: ONDANSETRON HCL INJ 2MG/ML 2ML 2 MG/ML VIAL IV PRN ×2 (01:31→16:30)
[2018-09-18] MEDS: METRONIDAZOLE 500MG/NS 100ML 100 ML IV SCH ×4 (02:10→20:50)
[2018-09-18] MEDS: ACETAMINOPHEN 325 MG TAB PO PRN ×2 (02:10→14:30)
[2018-09-18] MEDS: PIPER-TAZ 3.375 GM 50 ML IV SCH ×4 (05:15→23:52)
--- NOTE | 2018-09-18 06:56 | NUR ---
Received patient resting in bed. Respirations even and unlabored, no acute distress noted. Call light within reach. Bed in the lowest position.
[2018-09-18] MEDS: LISINOPRIL 20 MG TAB PO SCH (08:01)
[2018-09-18] MEDS: ATENOLOL 50 MG TAB PO SCH (08:01)
[2018-09-18] MEDS: SODIUM CHLORIDE 0.9% 1000ML 1,000 ML IV SCH ×2 (10:34)
--- NOTE | 2018-09-18 19:19 | NUR ---
Report given to oncoming nurse. Walking rounds done. No acute distress noted. at bedside. Call light within reach. Bed in the lowest position.
--- NOTE | 2018-09-18 20:00 | NUR ---
PT IN BED, INITIAL ASSESSMENT COMPETE, NO DISTRESS NOTED, DRAIN IN PLACE TO RIGHT SIDE OF ABD, DRAINING SEROUS FLUID, SOME PAIN NOTED, STATES COMES AND GOES, IV INTACT, VS STABLE, CALL LIGHT IN REACH
[2018-09-19] VITALS: BP 176/103
[2018-09-19] MEDS: HYDROMORPHONE 1MG/1ML INJ IV PRN ×4 (00:04→13:30)
[2018-09-19] MEDS: METRONIDAZOLE 500MG/NS 100ML 100 ML IV SCH ×2 (03:00→08:03)
[2018-09-19 04:30] VITALS: BP 160/96
[2018-09-19] MEDS: PIPER-TAZ 3.375 GM 50 ML IV SCH ×2 (06:00→12:00)
[2018-09-19 06:33] LABS: BLOOD UREA NITROGEN 6 mg/dL (7-26); BUN/CREATININE RATIO 8 (6-25); CALCIUM 8.3 mg/dL (8.4-10.2); CARBON DIOXIDE 27 mmol/L (22-29); CHLORIDE 108 mmol/L (98-107); CREATININE, SERUM 0.78 mg/dL (0.72-1.25); EST GLOMERULAR FILTRATION RATE > 60 ML/MIN (60-); GLUCOSE 120 mg/dL (74-118); SODIUM 143 mmol/L (136-145)
[2018-09-19 06:41] LABS: BASOPHILS % 0.4 % (0.0-1.0); EOSINOPHILS # (AUTO) 0.4 (0.0-0.4); EOSINOPHILS % 4.1 % (0.0-6.0); HEMATOCRIT 39.3 % (38.2-49.6); LYMPHOCYTES # (AUTO) 2.3 (1.0-3.2); LYMPHOCYTES % 24.9 % (18.0-39.1); MEAN CORPUSCULAR HEMOGLOBIN 28.6 pg (28-32); MEAN CORPUSCULAR HGB CONC 33.1 g/dL (31-35); MEAN CORPUSCULAR VOLUME 86.4 fL (81-99); MONOCYTES # (AUTO) 0.7 (0.2-0.8); MONOCYTES % 7.5 % (4.4-11.3); NEUTROPHILS # (AUTO) 5.8 (2.1-6.9); NEUTROPHILS % 62.8 % (38.7-80.0); PLATELET COUNT 216 x10e3/uL (140-360); RED BLOOD COUNT 4.55 x10e6/uL (4.3-5.7); RED CELL DISTRIBUTION WIDTH 12.8 % (11.7-14.4)
[2018-09-19 07:56] VITALS: BP 170/84
[2018-09-19 08:00] VITALS: BP 170/84
[2018-09-19] MEDS: LISINOPRIL 20 MG TAB PO SCH (08:03)
[2018-09-19] MEDS: ATENOLOL 50 MG TAB PO SCH (08:04)
[2018-09-19] MEDS: SODIUM CHLORIDE 0.9% 1000ML 1,000 ML IV SCH (08:10)
--- NOTE | 2018-09-19 11:31 | Diagnostic Imaging Report ---
EXAM: CT Abdomen WITHOUT intravenous contrast INDICATION: Follow-up of postoperative fluid collection status post drainage COMPARISON: CT abdomen and pelvis of 09/08/2018 TECHNIQUE: Abdomen was scanned utilizing a multidetector helical scanner from the lung base to the iliac crest without administration of IV contrast. Coronal and sagittal reformations were obtained. IV CONTRAST: None ORAL CONTRAST: None COMPLICATIONS: None RADIATION DOSE: Total DLP: 523.5 mGy*cm Dose modulation, iterative reconstruction, and/or weight based adjustment of the mA/kV was utilized to reduce the radiation dose to as low as reasonably achievable. FINDINGS: LOWER THORAX: Normal. HEPATOBILIARY: No focal liver lesions. Status post cholecystectomy. The previously visualized fluid collection in the gallbladder fossa has decreased in size status post percutaneous aspiration. The previously noted left hepatic fluid collection has resolved status post percutaneous drainage. SPLEEN: No splenomegaly. PANCREAS: No focal masses or ductal dilatation. ADRENALS: No adrenal nodules. KIDNEYS/URETERS: Unchanged bilateral renal cysts. PERITONEUM / RETROPERITONEUM: No free air or fluid. LYMPH NODES: No lymphadenopathy. VESSELS: Minimal atherosclerotic calcifications of the nonaneurysmal abdominal aorta. GI TRACT: No distention or wall thickening. BONES AND SOFT TISSUES: Unremarkable. IMPRESSION: Interval resolution of left hepatic fluid collection status post drainage. Decrease of gallbladder fossa fluid collection status post percutaneous aspiration. Findings were discussed with Dr. Marco De La Paz MD. As the drain output is still >10cc/day, the patient will be discharged and brought back in 2 weeks as an outpatient for drain evaluation and possible removal. Signed by: Alfreda Seymour MD on 09/19/2018 11:27 AM
[2018-09-19 12:33] VITALS: BP 160/90
[2018-09-19] MEDS ORDERED: TYLENOL # 31 EA PO (14:24)
--- NOTE | 2018-09-19 14:36 | NUR ---
Pt discharged to home at this time. Pt going home with drain to abdomen. Pt is to follow up with radiology in two weeks for evaluation and possible drain removal. Pt verbalized understanding of discharge instructions and all follow up appts.
== END 2018-09-19 15:24 | disposition home or self-care (01) | DRG 444 ==
LOC: ER 16:30 → ERHOLD 17:36 → MED/SURG3 18:42
PROC: 0F9230Z Drainage of Left Lobe Liver with Drainage Device, Percutaneous Approach (ICD-10-PCS; principal; 2018-09-14)
PROC: 0F943ZX Drainage of Gallbladder, Percutaneous Approach, Diagnostic (ICD-10-PCS; 2018-09-14)
DX: K82.8 Other specified diseases of gallbladder (principal); K75.0 Abscess of liver; K65.1 Peritoneal abscess; K21.9 Gastro-esophageal reflux disease without esophagitis; I10 Essential (primary) hypertension
CPT/HCPCS: 10160; 36415; 49406; 71045; 74150; 74470; 75989; 76942; 80048; 80053; 81001; 82150; 82550; 82553; 83605; 83690; 84484; 85025; 85610; 85730; 87040; 87070; 87071; 87075; 87086; 87205; 89051; 99152; 99153; 99284; C1729; J1100; J1170; J2001; J2250; J2405; J2543; J2710; J3010; J7030; J7050; Q9967

== ENCOUNTER 2018-09-27 14:23 | Emergency (ER) | payer BC ==
[~2018-09-27] VITALS: Ht 170.2 cm; Wt 114.3 kg
[~2018-09-27 14:23] MED LIST changes: +NEXIUM40 MG PO; +TYLENOL # 31 EA PO
--- OUTSIDE RECORDS SUMMARY | 2018-09-27 14:26 | XMS REPORT | Continuity of Care Document ---
Author Author [employer] Address Unknown Phone Unavailable Care Team Providers Care Member Service Representative Name Role Phone [employer] Information Molecular Imaging Unavailable Unavailable Problems Problem Status Onset Date Classification Date Reported Comments Source UNK Active 07/19/2018 [facility] CHOLELITHIASIS WITH ACUTE ON CHRONIC CHO Active 07/19/2018 [facility] R10.11 - RIGHT UPPER QUADRANT PAIN Active 07/18/2018 [facility] M25.50 - PAIN IN UNSPECIFIED JOINT Active 03/03/2016 [facility] [place] 720.2 - SACROILIITIS NE Active 10/17/2014 [facility] [place] Bronchitis Resolved Problem 08/19/2018 [facility] [place] [place] GERD (Confirmed) Active Problem 08/19/2018 [facility] [place],[facility], [facility] [place] Hypertension Active Problem 08/19/2018 [facility] [place] [place] Pneumonia Resolved Problem 08/19/2018 [facility] [place] [place] Medications Medication Details Route Status Patient Instructions Ordering Provider Order Date Source Atenolol 25 MG Oral Tablet 25 mg=1 tab, PO, Daily, 0 Refill(s) Active 07/24/2018 [facility] Miralax 17 gm, 1 pkt, Route: PO, Drug form: PWDR, BID, Dosing Weight 115.938, kg, Start date: 07/24/18 9:00:00 CDT, Duration: 30 day, Stop date: 08/22/18 17:00:00 CDTNotes: Dissolve in 8 oz of water or juice. (Same as: Miralax) Inactive 07/24/2018 [facility] Zosyn 3.375 gm, Route: IVPB, ABXQ8H, Dosing Weight 115.938, kg, CrCl >=20 ml/min infuse over 4 hours, Start date: 07/23/18 23:00:00 CDT, Duration: 5 day, Stop date: 07/28/18 15:00:00 CDT, ABX Indication: Surgical ProphylaxisNotes: (Same as: Zosyn) Dosing based on Piperacillin component MEDICATION WASTE Product Size: 3375 mg Product Wasted: ___ mg No Longer Active 07/24/2018 [facility] Atenolol 25 mg, 1 tab, Route: PO, Drug form: TAB, Daily, Dosing Weight 115.938, kg, Start date: 07/22/18 9:00:00 CDT, Duration: 30 day, Stop date: 08/20/18 9:00:00 CDTNotes: (Same As:Tenormin) No Longer Active 07/22/2018 [facility] Acetaminophen 650 mg, 2 tab, Route: PO, Drug form: TAB, Q6H, Dosing Weight 115.938, kg, PRN Pain 1-3/Temp > 100.4 F, Start date: 07/22/18 5:55:00 CDT, Duration: 30 day, Stop date: 08/21/18 5:54:00 CDTNotes: Do not exceed 4 gm/day. (Same as: Tylenol) No Longer Active 07/22/2018 [facility] ketOROLAC 30 mg/mL injectable solution [...] Wasted: ___ mg No Longer Active 07/22/2018 [facility] Famotidine 20 mg, 1 tab, Route: PO, Drug form: TAB, Q12H, Dosing Weight 115.938, kg, Start date: 07/21/18 21:00:00 CDT, Duration: 30 day, Stop date: 08/20/18 9:00:00 CDTNotes: (Same as: Pepcid) No Longer Active 07/22/2018 [facility] Lisinopril 40 mg, 2 tab, Route: PO, Drug form: TAB, Daily, Dosing Weight 115.938, kg, Priority: NOW, Start date: 07/21/18 19:52:00 CDT, Duration: 30 day, Stop date: 08/20/18 9:00:00 CDTNotes: (Same as: Prinivil, Zestril) No Longer Active 07/22/2018 [facility] Dilaudid 0.5 mg, 0.5 mL, Route: IVP, Drug form: INJ, Q2H, Dosing Weight 115.938, kg, PRN Pain Score 7-10, Start date: 07/21/18 18:00:00 CDT, Duration: 30 day, Stop date: 08/20/18 17:59:00 CDTNotes: Same as: Dilaudid No Longer Active 07/21/2018 [facility] Zosyn 3.375 gm, Route: IVPB, ABXQ8H, Dosing Weight 115.938, kg, CrCl >=20 ml/min infuse over 4 hours, Start date: 07/21/18 15:00:00 CDT, Duration: 1 day, Stop date: 07/22/18 7:00:00 CDT, ABX Indication: Surgical ProphylaxisNotes: (Same as: Zosyn) Dosing based on Piperacillin component MEDICATION WASTE Product Size: 3375 mg Product Wasted: ___ mg No Longer Active 07/21/2018 [facility] Acetaminophen 21.7 MG/ML / Hydrocodone Bitartrate 0.5 MG/ML Oral Solution 15 mL, Route: PO, Drug Form: SOLN, Dosing Weight 115.938, kg, Q4H, PRN Pain Score 4-6, Start date: 07/21/18 14:47:00 CDT, Duration: 30 day, Stop date: 08/20/18 14:46:00 CDTNotes: Do not exceed 4gm/day of acetaminophen. (Same as: [place] 325/7.5) No Longer Active 07/21/2018 [facility] Ondansetron 4 mg, 2 mL, Route: IVP, Drug form: INJ, Q12H, Dosing Weight 115.938, kg, PRN Nausea & Vomiting, Start date: 07/21/18 14:47:00 CDT, Duration: 30 day, Stop date: 08/20/18 14:46:00 CDTNotes: (Same as: [place]) MEDICATION WASTE Product Size: 4 mg Product Wasted: ___ mg No Longer Active 07/21/2018 [facility] Calcium Chloride 0.0014 MEQ/ML / Potassium Chloride 0.004 MEQ/ML / Sodium Chloride 0.103 MEQ/ML / Sodium Lactate 0.028 MEQ/ML Injectable Solution 1,000 mL, Rate: 125 ml/hr, Infuse over: 8 hr, Route: IV, Dosing Weight 115.938 kg, Total Volume: 1,000, Start date: 07/21/18 14:47:00 CDT, Duration: 30 day, Stop date: 08/20/18 14:46:00 CDT, 2.4, m2 No Longer Active 07/21/2018 [facility] glycopyrrolate (ANES) Route: IV, Drug form: INJ, ONCE, Stop date: 07/21/18 14:17:00 CDT Inactive 07/21/2018 [facility] neostigmine (ANES) Route: IV, Drug form: INJ, ONCE, Stop date: 07/21/18 14:17:00 CDT Inactive 07/21/2018 [facility] Ondansetron 4 mg, Route: IVP, ONCE, Dosing Weight 115.938, kg, PRN Nausea & Vomiting, Start date: 07/21/18 13:38:00 CDT Inactive 07/21/2018 [facility] Flumazenil 0.2 mg, Route: IVP, PRN, Dosing Weight 115.938, kg, PRN Benzodiazepine Reversal, Initial dose, Start date: 07/21/18 13:38:00 CDT, Duration: 30 day, Stop date: 08/20/18 13:37:00 CDT Inactive 07/21/2018 [facility] Naloxone 0.4 mg, Route: IVP, Q2MIN, Dosing Weight 115.938, kg, PRN Narcotic Reversal, Start date: 07/21/18 13:38:00 CDT, Duration: 8 doses or times, Stop date: Limited # of times Inactive 07/21/2018 [facility] Hydromorphone 0.5 mg, Route: IVP, Q5Min, Dosing Weight 115.938, kg, PRN Pain Score 7-10, Start date: 07/21/18 13:38:00 CDT, Duration: 4 doses or times, Stop date: Limited # of times Inactive 07/21/2018 [facility] Fentanyl 25 microgram, Route: IVP, Q5Min, Dosing Weight 115.938, kg, PRN Pain Score 4-6, Priority: Routine, Start date: 07/21/18 13:38:00 CDT, Duration: 4 doses or times, Stop date: Limited # of times Inactive 07/21/2018 [facility] phenylephrine (ANES) Route: IV, Drug form: INJ, ONCE, Stop date: 07/21/18 13:13:00 CDT Inactive 07/21/2018 [facility] metoprolol (ANES) Route: IV, Drug form: INJ, ONCE, Stop date: 07/21/18 11:43:00 CDT Inactive 07/21/2018 [facility] ceFAZolin (ANES) Route: IV, Drug form: INJ, ONCE, Stop date: 07/21/18 11:33:00 CDT Inactive 07/21/2018 [facility] dexamethasone (ANES) Route: IV, Drug form: INJ, ONCE, Stop date: 07/21/18 11:33:00 CDT Inactive 07/21/2018 [facility] fentaNYL (ANES) Route: IV, Drug form: INJ, ONCE, Stop date: 07/21/18 11:22:00 CDT Inactive 07/21/2018 [facility] propofol (ANES) Route: IV, Drug form: INJ, ONCE, Stop date: 07/21/18 11:22:00 CDT Inactive 07/21/2018 [facility] rocuronium (ANES) Route: IV, Drug form: INJ, ONCE, Stop date: 07/21/18 11:22:00 CDT Inactive 07/21/2018 [facility] midazolam (ANES) Route: IV, Drug form: SOLN, ONCE, Stop date: 07/21/18 11:22:00 CDT Inactive 07/21/2018 [facility] Lactated Ringers Injection IV (ANES) 1000 mL Route: IV, Total Volume: 1,000, Start date: 07/21/18 10:10:00 CDT, Stop date: 07/21/18 11:10:00 CDT Inactive 07/21/2018 [facility] 72 HR Scopolamine 0.0139 MG/HR Transdermal Patch 1 patch, Route: TOP, Drug Form: ERFILM, Dosing Weight 115.938, kg, ONCE, Start date: 07/21/18 10:10:00 CDT, Stop date: 07/21/18 10:10:00 CDT Inactive 07/21/2018 [facility] Calcium Chloride 0.0014 MEQ/ML / Potassium Chloride 0.004 MEQ/ML / Sodium Chloride 0.103 MEQ/ML / Sodium Lactate 0.028 MEQ/ML Injectable Solution 1,000 mL, Rate: 25 ml/hr, Infuse over: 40 hr, Route: IV, Dosing Weight 115.938 kg, Total Volume: 1,000, Start date: 07/21/18 10:09:00 CDT, Duration: 30 day, Stop date: 08/20/18 10:08:00 CDT, 2.4, m2 Inactive 07/21/2018 [facility] Nexium PO, Daily, 0 Refill(s) Active 07/20/2018 [facility] lisinopril 40 mg oral tablet 40 mg=1 tab, PO, Daily, 0 Refill(s) Active 07/20/2018 [facility] Atenolol 25 MG Oral Tablet 25 mg=1 tab, PO, Daily, 0 Refill(s) Active 07/20/2018 [facility] Allergies, Adverse Reactions, Alerts Substance Category Reaction Severity Reaction type Status Date Reported Comments Source No Known Medication Allergies Assertion Drug allergy [facility] [place] Immunizations No Data Provided for This Section Results Order Name Results Value Reference Range Date Interpretation Comments Source CHEM PANEL Calcium Lvl 8.4 8.5 - 10.5 07/24/2018 [facility] CHEM PANEL Total Protein 6.8 6.4 - 8.4 07/24/2018 [facility] CHEM PANEL Albumin Lvl 2.3 3.5 - 5.0 07/24/2018 [facility] CHEM PANEL eGFR 87 07/24/2018 [...] PANEL AGAP 11.0 10.0 - 20.0 07/24/2018 [facility] CHEM PANEL B/C Ratio 19 6 - 25 07/24/2018 [facility] CHEM PANEL A/G Ratio 0.5 0.7 - 1.6 07/24/2018 [facility] CHEM PANEL ALT 88 0 - 65 07/24/2018 [facility] CHEM PANEL AST 25 0 - 37 07/24/2018 [facility] CHEM PANEL Alk Phos 96 39 - 136 07/24/2018 [facility] CHEM PANEL Bili Total 1.1 0.2 - 1.3 07/24/2018 [facility] CHEM PANEL Sodium Lvl 144 135 - 145 07/24/2018 [facility] CHEM PANEL Potassium Lvl 4.0 3.5 - 5.1 07/24/2018 [facility] CHEM PANEL BUN 18 7 - 22 07/24/2018 [facility] CHEM PANEL Creatinine Lvl 0.97 0.50 - 1.40 07/24/2018 [facility] CHEM PANEL Glucose Lvl 103 70 - 99 07/24/2018 [facility] CHEM PANEL Chloride Lvl 107 95 - 109 07/24/2018 [facility] CHEM PANEL CO2 30 24 - 32 07/24/2018 [facility] HEMATOLOGY MCHC 32.7 32.0 - 36.0 07/24/2018 [facility] HEMATOLOGY MCV 90.4 80.0 - 94.0 07/24/2018 [facility] HEMATOLOGY RDW 13.0 11.5 - 14.5 07/24/2018 [facility] HEMATOLOGY MCH 29.6 27.0 - 31.0 07/24/2018 [facility] HEMATOLOGY Hct 36.9 42.0 - 54.0 07/24/2018 [facility] HEMATOLOGY RBC 4.08 4.70 - 6.10 07/24/2018 [facility] HEMATOLOGY Hgb 12.1 14.0 - 18.0 07/24/2018 [facility] HEMATOLOGY MPV 8.9 7.4 - 10.4 07/24/2018 [facility] HEMATOLOGY Platelet 216 133 - 450 07/24/2018 [facility] HEMATOLOGY WBC 17.1 3.7 - 10.4 07/24/2018 [facility] CHEM PANEL eGFR 97 07/23/2018 [...] should be multiplied by the estimated BMI. [facility] CHEM PANEL A/G Ratio 0.6 0.7 - 1.6 07/23/2018 [facility] CHEM PANEL Globulin 4.3 2.7 - 4.2 07/23/2018 [facility] CHEM PANEL B/C Ratio 23 6 - 25 07/23/2018 [facility] CHEM PANEL AGAP 9.5 10.0 - 20.0 07/23/2018 [facility] CHEM PANEL Bili Total 1.1 0.2 - 1.3 07/23/2018 [facility] CHEM PANEL Alk Phos 104 39 - 136 07/23/2018 [facility] CHEM PANEL AST 31 0 - 37 07/23/2018 [facility] CHEM PANEL ALT 110 0 - 65 07/23/2018 [facility] CHEM PANEL Albumin Lvl 2.5 3.5 - 5.0 07/23/2018 [facility] CHEM PANEL Total Protein 6.8 6.4 - 8.4 07/23/2018 [facility] CHEM PANEL Calcium Lvl 8.3 8.5 - 10.5 07/23/2018 [facility] CHEM PANEL CO2 31 24 - 32 07/23/2018 [facility] CHEM PANEL Chloride Lvl 103 95 - 109 07/23/2018 [facility] CHEM PANEL Potassium Lvl 3.5 3.5 - 5.1 07/23/2018 [facility] CHEM PANEL Glucose Lvl 120 70 - 99 07/23/2018 [facility] CHEM PANEL Sodium Lvl 140 135 - 145 07/23/2018 [facility] CHEM PANEL Creatinine Lvl 0.84 0.50 - 1.40 07/23/2018 [facility] CHEM PANEL BUN 19 7 - 22 07/23/2018 [facility] HEMATOLOGY Eosinophils 0.2 0.0 - 4.0 07/23/2018 [facility] HEMATOLOGY Monocytes 5.8 2.0 - 12.0 07/23/2018 [facility] Segs 85.5 45.0 - 75.0 07/23/2018 [facility] Neutrophils # 16.6 1.5 - 8.1 07/23/2018 [facility] Lymphocytes 8.2 20.0 - 40.0 07/23/2018 [facility] Basophils # 0.1 0.0 - 0.2 07/23/2018 [facility] Basophils 0.3 0.0 - 1.0 07/23/2018 [facility] Monocytes # 1.1 0.0 - 0.8 07/23/2018 [facility] Lymphocytes # 1.6 1.0 - 5.5 07/23/2018 [facility] Hgb 12.7 14.0 - 18.0 07/23/2018 [facility] WBC 19.4 3.7 - 10.4 07/23/2018 [facility] Hct 38.3 42.0 - 54.0 07/23/2018 [facility] RBC 4.31 4.70 - 6.10 07/23/2018 [facility] MCH 29.5 27.0 - 31.0 07/23/2018 [facility] MCV 88.8 80.0 - 94.0 07/23/2018 [facility] MPV 8.5 7.4 - 10.4 07/23/2018 [facility] Platelet 193 133 - 450 07/23/2018 [facility] RDW 13.1 11.5 - 14.5 07/23/2018 [facility] MCHC 33.2 32.0 - 36.0 07/23/2018 [facility] CHEM PANEL eGFR 94 07/22/2018 [...] should be multiplied by the estimated BMI. [facility] CHEM PANEL AST 231 0 - 37 07/22/2018 [facility] CHEM PANEL Alk Phos 161 39 - 136 07/22/2018 [facility] CHEM PANEL Bili Total 1.5 0.2 - 1.3 07/22/2018 [facility] CHEM PANEL Calcium Lvl 8.1 8.5 - 10.5 07/22/2018 [facility] CHEM PANEL Total Protein 7.2 6.4 - 8.4 07/22/2018 [facility] CHEM PANEL Albumin Lvl 3.2 3.5 - 5.0 07/22/2018 [facility] CHEM PANEL Creatinine Lvl 0.91 0.50 - 1.40 07/22/2018 [facility] CHEM PANEL Sodium Lvl 140 135 - 145 07/22/2018 [facility] CHEM PANEL Potassium Lvl 3.7 3.5 - 5.1 07/22/2018 [facility] CHEM PANEL Chloride Lvl 103 95 - 109 07/22/2018 [facility] CHEM PANEL CO2 28 24 - 32 07/22/2018 [facility] CHEM PANEL Glucose Lvl 135 70 - 99 07/22/2018 [facility] CHEM PANEL BUN 11 7 - 22 07/22/2018 [facility] CHEM PANEL ALT 295 0 - 65 07/22/2018 [facility] CHEM PANEL A/G Ratio 0.8 0.7 - 1.6 07/22/2018 [facility] CHEM PANEL AGAP 12.7 10.0 - 20.0 07/22/2018 [facility] CHEM PANEL B/C Ratio 12 6 - 25 07/22/2018 [facility] CHEM PANEL Globulin 4.0 2.7 - 4.2 07/22/2018 [facility] HEMATOLOGY Monocytes # 1.1 0.0 - 0.8 07/22/2018 [facility] Lymphocytes # 1.6 1.0 - 5.5 07/22/2018 [facility] Segs 83.7 45.0 - 75.0 07/22/2018 [facility] Lymphocytes 9.6 20.0 - 40.0 07/22/2018 [facility] Basophils 0.1 0.0 - 1.0 07/22/2018 [facility] Neutrophils # 14.1 1.5 - 8.1 07/22/2018 [facility] Monocytes 6.6 2.0 - 12.0 07/22/2018 [facility] MCHC 33.1 32.0 - 36.0 07/22/2018 [facility] RDW 12.9 11.5 - 14.5 07/22/2018 [facility] MPV 8.8 7.4 - 10.4 07/22/2018 [facility] Platelet 234 133 - 450 07/22/2018 [facility] MCV 88.8 80.0 - 94.0 07/22/2018 [facility] Hgb 14.5 14.0 - 18.0 07/22/2018 [facility] RBC 4.94 4.70 - 6.10 07/22/2018 [facility] WBC 16.8 3.7 - 10.4 07/22/2018 [facility] Hct 43.9 42.0 - 54.0 07/22/2018 [facility] MCH 29.4 27.0 - 31.0 07/22/2018 [facility] Pathology Reports No Data Provided [...] pneumonia and small left pleural effusion. 08/17/2018 [facility] Chest 2 views DX Clinical Indication: - [...] lobe infiltrate and small left effusion. SL: [id number] 07/24/2018 [facility] Abdomen AP DX Clinical Indication: [...] gallbladder fossa. IMPRESSION: 1. Unremarkable abdomen. SL: [id number] 07/24/2018 [facility] RUQ US EXAM: US ABDOMEN RIGHT UPPER [...] vessel disease. 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 TECHNIQUE: Sagittal T1, [...] to Dr. Aaron on 03/04/2016 11:42 AM CQ DEVELOPER. 03/04/2016 MIGUELITO Sue Sacroiliac joints series DX [...] Comments Source Systolic (mm Hg) 151 07/24/2018 [facility] Diastolic (mm Hg) 83 07/24/2018 [facility] Heart Rate 105 07/24/2018 [facility] Temperature Oral (F) 98.8 F 07/24/2018 [facility] Respitory Rate 18 07/24/2018 [facility] Respitory Rate 16 07/24/2018 [facility] Respitory Rate 18 07/24/2018 [facility] Temperature Oral (F) 99.3 F 07/24/2018 [facility] Heart Rate 112 07/24/2018 [facility] Systolic (mm Hg) 146 07/24/2018 [facility] Diastolic (mm Hg) 90 07/24/2018 [facility] Systolic (mm Hg) 139 07/24/2018 [facility] Diastolic (mm Hg) 84 07/24/2018 [facility] Heart Rate 120 07/24/2018 [facility] Temperature Oral (F) 99.8 F 07/24/2018 [facility] BMI Calculated 37.75 07/20/2018 [facility] Weight 115.938 07/20/2018 [facility] Height 175.26 cm 07/20/2018 [facility] Encounters Location Location Details Encounter Type Encounter Number Reason For Visit Attending Provider ADM Date DC Date Status Source [facility] [place] [facility] [id number] Madhuri Gaston 08/08/2014 08/09/2014 [facility] [place] [facility] [place] [facility] [id number] Robert Aaron 03/04/2016 03/05/2016 [facility] [place] [facility] [place] [facility] [id number] Adelfo Luna 12/18/2016 12/19/2016 [facility] [place] [facility] [place] [facility] [id number] Vianney Desai 07/19/2018 07/20/2018 [facility] [place] [facility] Observation [id number] Anuj Vera 07/21/2018 07/24/2018 [facility] [place] [facility] [id number] Robert Aaron 08/17/2018 08/18/2018 [facility] [place] Procedures No Data Provided for This Section Assessment and Plan Assessment and Plan Date Source Extracted from:Title: Surgery Staff Note Author: Anuj Vera DO Date: 07/24/18 Discharge Summary [facility] Completed: Jul, 09:59 by Anuj Vera DO [...] MD on 07/24/2018 03:31 CDT Encounter info: [id number], [facility], Observation, 07/21/2018 - * Final Report [...] gallbladder fossa. IMPRESSION: 1. Unremarkable abdomen. SL: [id number] Signature Line - - Read by: Tavon [...] DO Date: 07/23/18 Progress Note - Daily [facility] Completed: Wednesday, JUL 23, 2018, 13:01 by [...]
== END 2018-09-27 15:00 | disposition home or self-care (01) ==
LOC: ER 14:23
DX: Z48.01 Encounter for change or removal of surgical wound dressing (principal)
CPT/HCPCS: 99282

== ENCOUNTER 2018-10-03 09:40 | Observation (INO) | payer BC ==
[~2018-10-03] VITALS: Ht 175.3 cm; Wt 114.5 kg
--- OUTSIDE RECORDS SUMMARY | 2018-10-03 09:46 | XMS REPORT | Continuity of Care Document ---
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 Role Phone [employer] Information [employer] Unavailable Unavailable Problems Problem Status Onset Date Classification Date Reported Comments Source UNK Active 07/19/2018 [facility] CHOLELITHIASIS WITH ACUTE ON CHRONIC CHO Active 07/19/2018 [facility] R10.11 - RIGHT UPPER QUADRANT PAIN Active 07/18/2018 [facility] [place] M25.50 - PAIN IN UNSPECIFIED JOINT Active 03/03/2016 [facility] [place] 720.2 - SACROILIITIS NE Active 10/17/2014 [facility] [place] Bronchitis Resolved Problem 08/19/2018 [facility] [place] [place] GERD (Confirmed) Active Problem 08/19/2018 [facility] [place],[facility], [facility] [place] Hypertension Active Problem 08/19/2018 [facility] [place] [place] Pneumonia Resolved Problem 08/19/2018 [facility] [place] [place] Medications Medication Details Route Status Patient Instructions Ordering Provider Order Date Source Atenolol 25 MG Oral Tablet 25 mg=1 tab, PO, Daily, 0 Refill(s) Active 07/24/2018 [facility] Miralax 17 gm, 1 pkt, Route: PO, Drug form: PWDR, BID, Dosing Weight 115.938, kg, Start date: 07/24/18 9:00:00 CDT, Duration: 30 day, Stop date: 08/22/18 17:00:00 CDTNotes: Dissolve in 8 oz of water or juice. (Same as: Miralax) Inactive 07/24/2018 [facility] Zosyn 3.375 gm, Route: IVPB, ABXQ8H, Dosing Weight 115.938, kg, CrCl >=20 ml/min infuse over 4 hours, Start date: 07/23/18 23:00:00 CDT, Duration: 5 day, Stop date: 07/28/18 15:00:00 CDT, ABX Indication: Surgical ProphylaxisNotes: (Same as: Zosyn) Dosing based on Piperacillin component MEDICATION WASTE Product Size: 3375 mg Product Wasted: ___ mg No Longer Active 07/24/2018 [facility] Atenolol 25 mg, 1 tab, Route: PO, Drug form: TAB, Daily, Dosing Weight 115.938, kg, Start date: 07/22/18 9:00:00 CDT, Duration: 30 day, Stop date: 08/20/18 9:00:00 CDTNotes: (Same As:Tenormin) No Longer Active 07/22/2018 [facility] Acetaminophen 650 mg, 2 tab, Route: PO, Drug form: TAB, Q6H, Dosing Weight 115.938, kg, PRN Pain 1-3/Temp > 100.4 F, Start date: 07/22/18 5:55:00 CDT, Duration: 30 day, Stop date: 08/21/18 5:54:00 CDTNotes: Do not exceed 4 gm/day. (Same as: Tylenol) No Longer Active 07/22/2018 [facility] ketOROLAC 30 mg/mL injectable solution 30 [...] Wasted: ___ mg No Longer Active 07/22/2018 [facility] Famotidine 20 mg, 1 tab, Route: PO, Drug form: TAB, Q12H, Dosing Weight 115.938, kg, Start date: 07/21/18 21:00:00 CDT, Duration: 30 day, Stop date: 08/20/18 9:00:00 CDTNotes: (Same as: Pepcid) No Longer Active 07/22/2018 [facility] Lisinopril 40 mg, 2 tab, Route: PO, Drug form: TAB, Daily, Dosing Weight 115.938, kg, Priority: NOW, Start date: 07/21/18 19:52:00 CDT, Duration: 30 day, Stop date: 08/20/18 9:00:00 CDTNotes: (Same as: Prinivil, Zestril) No Longer Active 07/22/2018 [facility] Dilaudid 0.5 mg, 0.5 mL, Route: IVP, Drug form: INJ, Q2H, Dosing Weight 115.938, kg, PRN Pain Score 7-10, Start date: 07/21/18 18:00:00 CDT, Duration: 30 day, Stop date: 08/20/18 17:59:00 CDTNotes: Same as: Dilaudid No Longer Active 07/21/2018 [facility] Zosyn 3.375 gm, Route: IVPB, ABXQ8H, Dosing Weight 115.938, kg, CrCl >=20 ml/min infuse over 4 hours, Start date: 07/21/18 15:00:00 CDT, Duration: 1 day, Stop date: 07/22/18 7:00:00 CDT, ABX Indication: Surgical ProphylaxisNotes: (Same as: Zosyn) Dosing based on Piperacillin component MEDICATION WASTE Product Size: 3375 mg Product Wasted: ___ mg No Longer Active 07/21/2018 [facility] Acetaminophen 21.7 MG/ML / Hydrocodone Bitartrate 0.5 MG/ML Oral Solution 15 mL, Route: PO, Drug Form: SOLN, Dosing Weight 115.938, kg, Q4H, PRN Pain Score 4-6, Start date: 07/21/18 14:47:00 CDT, Duration: 30 day, Stop date: 08/20/18 14:46:00 CDTNotes: Do not exceed 4gm/day of acetaminophen. (Same as: [place] 325/7.5) No Longer Active 07/21/2018 [facility] Ondansetron 4 mg, 2 mL, Route: IVP, Drug form: INJ, Q12H, Dosing Weight 115.938, kg, PRN Nausea & Vomiting, Start date: 07/21/18 14:47:00 CDT, Duration: 30 day, Stop date: 08/20/18 14:46:00 CDTNotes: (Same as: [place]) MEDICATION WASTE Product Size: 4 mg Product Wasted: ___ mg No Longer Active 07/21/2018 [facility] Calcium Chloride 0.0014 MEQ/ML / Potassium Chloride 0.004 MEQ/ML / Sodium Chloride 0.103 MEQ/ML / Sodium Lactate 0.028 MEQ/ML Injectable Solution 1,000 mL, Rate: 125 ml/hr, Infuse over: 8 hr, Route: IV, Dosing Weight 115.938 kg, Total Volume: 1,000, Start date: 07/21/18 14:47:00 CDT, Duration: 30 day, Stop date: 08/20/18 14:46:00 CDT, 2.4, m2 No Longer Active 07/21/2018 [facility] glycopyrrolate (ANES) Route: IV, Drug form: INJ, ONCE, Stop date: 07/21/18 14:17:00 CDT Inactive 07/21/2018 [facility] neostigmine (ANES) Route: IV, Drug form: INJ, ONCE, Stop date: 07/21/18 14:17:00 CDT Inactive 07/21/2018 [facility] Ondansetron 4 mg, Route: IVP, ONCE, Dosing Weight 115.938, kg, PRN Nausea & Vomiting, Start date: 07/21/18 13:38:00 CDT Inactive 07/21/2018 [facility] Flumazenil 0.2 mg, Route: IVP, PRN, Dosing Weight 115.938, kg, PRN Benzodiazepine Reversal, Initial dose, Start date: 07/21/18 13:38:00 CDT, Duration: 30 day, Stop date: 08/20/18 13:37:00 CDT Inactive 07/21/2018 [facility] Naloxone 0.4 mg, Route: IVP, Q2MIN, Dosing Weight 115.938, kg, PRN Narcotic Reversal, Start date: 07/21/18 13:38:00 CDT, Duration: 8 doses or times, Stop date: Limited # of times Inactive 07/21/2018 [facility] Hydromorphone 0.5 mg, Route: IVP, Q5Min, Dosing Weight 115.938, kg, PRN Pain Score 7-10, Start date: 07/21/18 13:38:00 CDT, Duration: 4 doses or times, Stop date: Limited # of times Inactive 07/21/2018 [facility] Fentanyl 25 microgram, Route: IVP, Q5Min, Dosing Weight 115.938, kg, PRN Pain Score 4-6, Priority: Routine, Start date: 07/21/18 13:38:00 CDT, Duration: 4 doses or times, Stop date: Limited # of times Inactive 07/21/2018 [facility] phenylephrine (ANES) Route: IV, Drug form: INJ, ONCE, Stop date: 07/21/18 13:13:00 CDT Inactive 07/21/2018 [facility] metoprolol (ANES) Route: IV, Drug form: INJ, ONCE, Stop date: 07/21/18 11:43:00 CDT Inactive 07/21/2018 [facility] ceFAZolin (ANES) Route: IV, Drug form: INJ, ONCE, Stop date: 07/21/18 11:33:00 CDT Inactive 07/21/2018 [facility] dexamethasone (ANES) Route: IV, Drug form: INJ, ONCE, Stop date: 07/21/18 11:33:00 CDT Inactive 07/21/2018 [facility] fentaNYL (ANES) Route: IV, Drug form: INJ, ONCE, Stop date: 07/21/18 11:22:00 CDT Inactive 07/21/2018 [facility] propofol (ANES) Route: IV, Drug form: INJ, ONCE, Stop date: 07/21/18 11:22:00 CDT Inactive 07/21/2018 [facility] rocuronium (ANES) Route: IV, Drug form: INJ, ONCE, Stop date: 07/21/18 11:22:00 CDT Inactive 07/21/2018 [facility] midazolam (ANES) Route: IV, Drug form: SOLN, ONCE, Stop date: 07/21/18 11:22:00 CDT Inactive 07/21/2018 [facility] Lactated Ringers Injection IV (ANES) 1000 mL Route: IV, Total Volume: 1,000, Start date: 07/21/18 10:10:00 CDT, Stop date: 07/21/18 11:10:00 CDT Inactive 07/21/2018 [facility] 72 HR Scopolamine 0.0139 MG/HR Transdermal Patch 1 patch, Route: TOP, Drug Form: ERFILM, Dosing Weight 115.938, kg, ONCE, Start date: 07/21/18 10:10:00 CDT, Stop date: 07/21/18 10:10:00 CDT Inactive 07/21/2018 [facility] Calcium Chloride 0.0014 MEQ/ML / Potassium Chloride 0.004 MEQ/ML / Sodium Chloride 0.103 MEQ/ML / Sodium Lactate 0.028 MEQ/ML Injectable Solution 1,000 mL, Rate: 25 ml/hr, Infuse over: 40 hr, Route: IV, Dosing Weight 115.938 kg, Total Volume: 1,000, Start date: 07/21/18 10:09:00 CDT, Duration: 30 day, Stop date: 08/20/18 10:08:00 CDT, 2.4, m2 Inactive 07/21/2018 [facility] Nexium PO, Daily, 0 Refill(s) Active 07/20/2018 [facility] lisinopril 40 mg oral tablet 40 mg=1 tab, PO, Daily, 0 Refill(s) Active 07/20/2018 [facility] Atenolol 25 MG Oral Tablet 25 mg=1 tab, PO, Daily, 0 Refill(s) Active 07/20/2018 [facility] Allergies, Adverse Reactions, Alerts Substance Category Reaction Severity Reaction type Status Date Reported Comments Source No Known Medication Allergies Assertion Drug allergy [facility] [place] Immunizations No Data Provided for This Section Results Order Name Results Value Reference Range Date Interpretation Comments Source CHEM PANEL Calcium Lvl 8.4 8.5 - 10.5 07/24/2018 [facility] CHEM PANEL Total Protein 6.8 6.4 - 8.4 07/24/2018 [facility] CHEM PANEL Albumin Lvl 2.3 3.5 - 5.0 07/24/2018 [facility] CHEM PANEL eGFR 87 07/24/2018 Result [...] PANEL AGAP 11.0 10.0 - 20.0 07/24/2018 [facility] CHEM PANEL B/C Ratio 19 6 - 25 07/24/2018 [facility] CHEM PANEL A/G Ratio 0.5 0.7 - 1.6 07/24/2018 [facility] CHEM PANEL ALT 88 0 - 65 07/24/2018 [facility] CHEM PANEL AST 25 0 - 37 07/24/2018 [facility] CHEM PANEL Alk Phos 96 39 - 136 07/24/2018 [facility] CHEM PANEL Bili Total 1.1 0.2 - 1.3 07/24/2018 [facility] CHEM PANEL Sodium Lvl 144 135 - 145 07/24/2018 [facility] CHEM PANEL Potassium Lvl 4.0 3.5 - 5.1 07/24/2018 [facility] CHEM PANEL BUN 18 7 - 22 07/24/2018 [facility] CHEM PANEL Creatinine Lvl 0.97 0.50 - 1.40 07/24/2018 [facility] CHEM PANEL Glucose Lvl 103 70 - 99 07/24/2018 [facility] CHEM PANEL Chloride Lvl 107 95 - 109 07/24/2018 [facility] CHEM PANEL CO2 30 24 - 32 07/24/2018 [facility] HEMATOLOGY MCHC 32.7 32.0 - 36.0 07/24/2018 [facility] HEMATOLOGY MCV 90.4 80.0 - 94.0 07/24/2018 [facility] HEMATOLOGY RDW 13.0 11.5 - 14.5 07/24/2018 [facility] HEMATOLOGY MCH 29.6 27.0 - 31.0 07/24/2018 [facility] HEMATOLOGY Hct 36.9 42.0 - 54.0 07/24/2018 [facility] HEMATOLOGY RBC 4.08 4.70 - 6.10 07/24/2018 [facility] HEMATOLOGY Hgb 12.1 14.0 - 18.0 07/24/2018 [facility] HEMATOLOGY MPV 8.9 7.4 - 10.4 07/24/2018 [facility] HEMATOLOGY Platelet 216 133 - 450 07/24/2018 [facility] HEMATOLOGY WBC 17.1 3.7 - 10.4 07/24/2018 [facility] CHEM PANEL eGFR 97 07/23/2018 Result [...] should be multiplied by the estimated BMI. [facility] CHEM PANEL A/G Ratio 0.6 0.7 - 1.6 07/23/2018 [facility] CHEM PANEL Globulin 4.3 2.7 - 4.2 07/23/2018 [facility] CHEM PANEL B/C Ratio 23 6 - 25 07/23/2018 [facility] CHEM PANEL AGAP 9.5 10.0 - 20.0 07/23/2018 [facility] CHEM PANEL Bili Total 1.1 0.2 - 1.3 07/23/2018 [facility] CHEM PANEL Alk Phos 104 39 - 136 07/23/2018 [facility] CHEM PANEL AST 31 0 - 37 07/23/2018 [facility] CHEM PANEL ALT 110 0 - 65 07/23/2018 [facility] CHEM PANEL Albumin Lvl 2.5 3.5 - 5.0 07/23/2018 [facility] CHEM PANEL Total Protein 6.8 6.4 - 8.4 07/23/2018 [facility] CHEM PANEL Calcium Lvl 8.3 8.5 - 10.5 07/23/2018 [facility] CHEM PANEL CO2 31 24 - 32 07/23/2018 [facility] CHEM PANEL Chloride Lvl 103 95 - 109 07/23/2018 [facility] CHEM PANEL Potassium Lvl 3.5 3.5 - 5.1 07/23/2018 [facility] CHEM PANEL Glucose Lvl 120 70 - 99 07/23/2018 [facility] CHEM PANEL Sodium Lvl 140 135 - 145 07/23/2018 [facility] CHEM PANEL Creatinine Lvl 0.84 0.50 - 1.40 07/23/2018 [facility] CHEM PANEL BUN 19 7 - 22 07/23/2018 [facility] HEMATOLOGY Eosinophils 0.2 0.0 - 4.0 07/23/2018 [facility] HEMATOLOGY Monocytes 5.8 2.0 - 12.0 07/23/2018 [facility] Segs 85.5 45.0 - 75.0 07/23/2018 [facility] Neutrophils # 16.6 1.5 - 8.1 07/23/2018 [facility] Lymphocytes 8.2 20.0 - 40.0 07/23/2018 [facility] Basophils # 0.1 0.0 - 0.2 07/23/2018 [facility] Basophils 0.3 0.0 - 1.0 07/23/2018 [facility] Monocytes # 1.1 0.0 - 0.8 07/23/2018 [facility] Lymphocytes # 1.6 1.0 - 5.5 07/23/2018 [facility] Hgb 12.7 14.0 - 18.0 07/23/2018 [facility] WBC 19.4 3.7 - 10.4 07/23/2018 [facility] Hct 38.3 42.0 - 54.0 07/23/2018 [facility] RBC 4.31 4.70 - 6.10 07/23/2018 [facility] MCH 29.5 27.0 - 31.0 07/23/2018 [facility] MCV 88.8 80.0 - 94.0 07/23/2018 [facility] MPV 8.5 7.4 - 10.4 07/23/2018 [facility] Platelet 193 133 - 450 07/23/2018 [facility] RDW 13.1 11.5 - 14.5 07/23/2018 [facility] MCHC 33.2 32.0 - 36.0 07/23/2018 [facility] CHEM PANEL eGFR 94 07/22/2018 Result [...] should be multiplied by the estimated BMI. [facility] CHEM PANEL AST 231 0 - 37 07/22/2018 [facility] CHEM PANEL Alk Phos 161 39 - 136 07/22/2018 [facility] CHEM PANEL Bili Total 1.5 0.2 - 1.3 07/22/2018 [facility] CHEM PANEL Calcium Lvl 8.1 8.5 - 10.5 07/22/2018 [facility] CHEM PANEL Total Protein 7.2 6.4 - 8.4 07/22/2018 [facility] CHEM PANEL Albumin Lvl 3.2 3.5 - 5.0 07/22/2018 [facility] CHEM PANEL Creatinine Lvl 0.91 0.50 - 1.40 07/22/2018 [facility] CHEM PANEL Sodium Lvl 140 135 - 145 07/22/2018 [facility] CHEM PANEL Potassium Lvl 3.7 3.5 - 5.1 07/22/2018 [facility] CHEM PANEL Chloride Lvl 103 95 - 109 07/22/2018 [facility] CHEM PANEL CO2 28 24 - 32 07/22/2018 [facility] CHEM PANEL Glucose Lvl 135 70 - 99 07/22/2018 [facility] CHEM PANEL BUN 11 7 - 22 07/22/2018 [facility] CHEM PANEL ALT 295 0 - 65 07/22/2018 [facility] CHEM PANEL A/G Ratio 0.8 0.7 - 1.6 07/22/2018 [facility] CHEM PANEL AGAP 12.7 10.0 - 20.0 07/22/2018 [facility] CHEM PANEL B/C Ratio 12 6 - 25 07/22/2018 [facility] CHEM PANEL Globulin 4.0 2.7 - 4.2 07/22/2018 [facility] HEMATOLOGY Monocytes # 1.1 0.0 - 0.8 07/22/2018 [facility] Lymphocytes # 1.6 1.0 - 5.5 07/22/2018 [facility] Segs 83.7 45.0 - 75.0 07/22/2018 [facility] Lymphocytes 9.6 20.0 - 40.0 07/22/2018 [facility] Basophils 0.1 0.0 - 1.0 07/22/2018 [facility] Neutrophils # 14.1 1.5 - 8.1 07/22/2018 [facility] Monocytes 6.6 2.0 - 12.0 07/22/2018 [facility] MCHC 33.1 32.0 - 36.0 07/22/2018 [facility] RDW 12.9 11.5 - 14.5 07/22/2018 [facility] MPV 8.8 7.4 - 10.4 07/22/2018 [facility] Platelet 234 133 - 450 07/22/2018 [facility] MCV 88.8 80.0 - 94.0 07/22/2018 [facility] Hgb 14.5 14.0 - 18.0 07/22/2018 [facility] RBC 4.94 4.70 - 6.10 07/22/2018 [facility] WBC 16.8 3.7 - 10.4 07/22/2018 [facility] Hct 43.9 42.0 - 54.0 07/22/2018 [facility] MCH 29.4 27.0 - 31.0 07/22/2018 [facility] Pathology Reports No Data Provided for [...] pneumonia and small left pleural effusion. 08/17/2018 [facility] Chest 2 views DX Clinical Indication: [...] lobe infiltrate and small left effusion. SL: [id number] 07/24/2018 [facility] Abdomen AP DX Clinical Indication: - [...] gallbladder fossa. IMPRESSION: 1. Unremarkable abdomen. SL: [id number] 07/24/2018 [facility] RUQ US EXAM: US ABDOMEN RIGHT UPPER [...] vessel disease. No acute intracranial abnormality 12/18/2016 [facility] Spine lumbar wo contrast MRI MRI LUMBAR SPINE WITHOUT CONTRAST 03/04/2016 8:12 AM [employer]ATING SYSTEM[employer] COMPARISON: 08/08/2014 radiograph exam. TECHNIQUE: Sagittal T1, [...] to Dr. 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 03/04/2016 MIGUELITO Sue Sacroiliac joints series DX [...] Comments Source Systolic (mm Hg) 151 07/24/2018 [facility] Diastolic (mm Hg) 83 07/24/2018 [facility] Heart Rate 105 07/24/2018 [facility] Temperature Oral (F) 98.8 F 07/24/2018 [facility] Respitory Rate 18 07/24/2018 [facility] Respitory Rate 16 07/24/2018 [facility] Respitory Rate 18 07/24/2018 [facility] Temperature Oral (F) 99.3 F 07/24/2018 [facility] Heart Rate 112 07/24/2018 [facility] Systolic (mm Hg) 146 07/24/2018 [facility] Diastolic (mm Hg) 90 07/24/2018 [facility] Systolic (mm Hg) 139 07/24/2018 [facility] Diastolic (mm Hg) 84 07/24/2018 [facility] Heart Rate 120 07/24/2018 [facility] Temperature Oral (F) 99.8 F 07/24/2018 [facility] BMI Calculated 37.75 07/20/2018 [facility] Weight 115.938 07/20/2018 [facility] Height 175.26 cm 07/20/2018 [facility] Encounters Location Location Details Encounter Type Encounter Number Reason For Visit Attending Provider ADM Date DC Date Status Source [facility] [place] [facility] [id number] Madhuri Gaston 08/08/2014 08/09/2014 [facility] [place] [facility] [place] [facility] [id number] Robert Aaron 03/04/2016 03/05/2016 [facility] [place] [facility] [place] [facility] [id number] Adelfo Luna 12/18/2016 12/19/2016 [facility] [place] [facility] [place] [facility] [id number] Vianney Desai 07/19/2018 07/20/2018 [facility] [place] [facility] Observation [id number] Anuj Vera 07/21/2018 07/24/2018 [facility] [place] [facility] [id number] Robert Aaron 08/17/2018 08/18/2018 [facility] [place] Procedures No Data Provided for This Section Assessment and Plan Assessment and Plan Date Source Extracted from:Title: Surgery Staff Note Author: Anuj Vera DO Date: 07/24/18 Discharge Summary [facility] Completed: Jul, 09:59 by Anuj Vera [...] MD on 07/24/2018 03:31 CDT Encounter info: [id number], [facility], Observation, 07/21/2018 - * Final Report * [...] gallbladder fossa. IMPRESSION: 1. Unremarkable abdomen. SL: [id number] Signature Line - - Read by: Tavon [...] DO Date: 07/23/18 Progress Note - Daily [facility] Completed: Wednesday, JUL 23, 2018, 13:01 [...]
[2018-10-03] MEDS ORDERED: KETOROLAC TROMETHAMINE 30 MG/ML VIAL IV ONE (10:15)
[2018-10-03 10:37] LABS: BASOPHILS % 0.3 % (0.0-1.0); EOSINOPHILS # (AUTO) 0.3 (0.0-0.4); HEMATOCRIT 41.6 % (38.2-49.6); HEMOGLOBIN 13.7 g/dL (14.0-18.0); LYMPHOCYTES # (AUTO) 2.6 (1.0-3.2); LYMPHOCYTES % 25.1 % (18.0-39.1); MEAN CORPUSCULAR HEMOGLOBIN 28.5 pg (28-32); MEAN CORPUSCULAR HGB CONC 32.9 g/dL (31-35); MEAN CORPUSCULAR VOLUME 86.7 fL (81-99); MONOCYTES # (AUTO) 0.8 (0.2-0.8); MONOCYTES % 7.4 % (4.4-11.3); NEUTROPHILS # (AUTO) 6.6 (2.1-6.9); NEUTROPHILS % 63.6 % (38.7-80.0); PLATELET COUNT 274 x10e3/uL (140-360); RED CELL DISTRIBUTION WIDTH 13.1 % (11.7-14.4)
[2018-10-03 10:43] LABS: BILIRUBIN,URINE NEGATIVE (NEGATIVE); CLARITY,URINE CLEAR (CLEAR); COLOR,URINE YELLOW (YELLOW); KETONES,URINE NEGATIVE (NEGATIVE); LEUKOCYTE ESTERASE ,URINE NEGATIVE (NEGATIVE); NITRITE,URINE NEGATIVE (NEGATIVE); PROTEIN,URINE DIPSTICK NEGATIVE (NEGATIVE); URINE UROBILINOGEN 0.2 mg/dL (0.2 - 1)
[2018-10-03 10:52] LABS: ALANINE AMINOTRANSFERASE 35 IU/L (0-55); ALBUMIN 3.4 g/dL (3.5-5.0); ALBUMIN/GLOBULIN RATIO 0.9 (0.8-2.0); ALKALINE PHOSPHATASE 169 IU/L (40-150); AMYLASE 92 U/L (25-125); ANION GAP 13.8 mmol/L (8-16); BLOOD UREA NITROGEN 11 mg/dL (7-26); BUN/CREATININE RATIO 13 (6-25); CALCIUM 9.1 mg/dL (8.4-10.2); CARBON DIOXIDE 29 mmol/L (22-29); CHLORIDE 101 mmol/L (98-107); CREATININE, SERUM 0.85 mg/dL (0.72-1.25); EST GLOMERULAR FILTRATION RATE > 60 ML/MIN (60-); GLUCOSE 156 mg/dL (74-118); LIPASE 34 U/L (8-78); POTASSIUM 3.8 mmol/L (3.5-5.1); SODIUM 140 mmol/L (136-145)
[2018-10-03 11:04] LABS: BACTERIA,URINE RARE /HPF; EPITHELIAL CELLS,URINE FEW /LPF; RBC,URINE 0-5 /HPF (0-5); WBC,URINE (MAN) 0-5 /HPF (0-5)
[2018-10-03] MEDS ORDERED: MORPHINE SULFATE 2 MG/ML SYR 1ML IV ONE ×2 (12:00→14:45)
--- NOTE | 2018-10-03 12:13 | Diagnostic Imaging Report ---
Right upper quadrant abdominal ultrasound Clinical History: Bilateral quadrant pain Discussion: Sonographic evaluation of the right upper quadrant of the abdomen is performed. The liver has normal size and measures 16.6 cm in length. The liver echotexture is normal, without focal mass. There is no intra or extrahepatic biliary dilatation. The common bile duct measures 7 mm. The gallbladder has been removed. The main portal vein diameter is normal, measuring 9 mm. The pancreas was not well seen secondary to bowel gas. There is no ascites. The right kidney measures 11.8 cm in length and is normal in size. There is no renal mass, hydronephrosis, or shadowing renal calculus. The aorta and IVC were not well seen secondary to bowel gas. Impression: 1 status post cholecystectomy, otherwise, unremarkable right upper quadrant ultrasound. Signed by: Dr. Ole Ramirez MD on 10/03/2018 12:09 PM
[2018-10-03] MEDS ORDERED: ONDANSETRON HCL INJ 2MG/ML 2ML 2 MG/ML VIAL IV PRN (12:45)
[2018-10-03] MEDS ORDERED: MORPHINE SULFATE 2 MG/ML SYR 1ML IV PRN (12:45)
--- OUTSIDE RECORDS SUMMARY | 2018-10-03 13:09 | XMS REPORT | Continuity of Care Document ---
Author Author [employer] [place] Address Unknown Phone Unavailable Care Team Providers Care Internet Salesperson Name Role Phone [facility] [employer] Unavailable Unavailable Problems Problem Status Onset Date Classification Date Reported Comments Source UNK Active 07/19/2018 [facility] CHOLELITHIASIS WITH ACUTE ON CHRONIC CHO Active 07/19/2018 [facility] R10.11 - RIGHT UPPER QUADRANT PAIN Active 07/18/2018 [facility] M25.50 - PAIN IN UNSPECIFIED JOINT Active 03/03/2016 [facility] 720.2 - SACROILIITIS NE Active 10/17/2014 [facility] Bronchitis Resolved Problem 08/19/2018 [facility] [place] [facility] GERD (Confirmed) Active Problem 08/19/2018 [facility] [place] [facility], [facility] Hypertension Active Problem 08/19/2018 [facility] [place] Pneumonia Resolved Problem 08/19/2018 [facility] [place] Medications Medication Details Route Status Patient Instructions Ordering Provider Order Date Source Atenolol 25 MG Oral Tablet 25 mg=1 tab, PO, Daily, 0 Refill(s) Active 07/24/2018 [facility] Miralax 17 gm, 1 pkt, Route: PO, Drug form: PWDR, BID, Dosing Weight 115.938, kg, Start date: 07/24/18 9:00:00 CDT, Duration: 30 day, Stop date: 08/22/18 17:00:00 CDTNotes: Dissolve in 8 oz of water or juice. (Same as: Miralax) Inactive 07/24/2018 [facility] Zosyn 3.375 gm, Route: IVPB, ABXQ8H, Dosing Weight 115.938, kg, CrCl >=20 ml/min infuse over 4 hours, Start date: 07/23/18 23:00:00 CDT, Duration: 5 day, Stop date: 07/28/18 15:00:00 CDT, ABX Indication: Surgical ProphylaxisNotes: (Same as: Zosyn) Dosing based on Piperacillin component MEDICATION WASTE Product Size: 3375 mg Product Wasted: ___ mg No Longer Active 07/24/2018 [facility] Atenolol 25 mg, 1 tab, Route: PO, Drug form: TAB, Daily, Dosing Weight 115.938, kg, Start date: 07/22/18 9:00:00 CDT, Duration: 30 day, Stop date: 08/20/18 9:00:00 CDTNotes: (Same As:Tenormin) No Longer Active 07/22/2018 [facility] Acetaminophen 650 mg, 2 tab, Route: PO, Drug form: TAB, Q6H, Dosing Weight 115.938, kg, PRN Pain 1-3/Temp > 100.4 F, Start date: 07/22/18 5:55:00 CDT, Duration: 30 day, Stop date: 08/21/18 5:54:00 CDTNotes: Do not exceed 4 gm/day. (Same as: Tylenol) No Longer Active 07/22/2018 [facility] ketOROLAC 30 mg/mL injectable solution 30 [...] Wasted: ___ mg No Longer Active 07/22/2018 [facility] Famotidine 20 mg, 1 tab, Route: PO, Drug form: TAB, Q12H, Dosing Weight 115.938, kg, Start date: 07/21/18 21:00:00 CDT, Duration: 30 day, Stop date: 08/20/18 9:00:00 CDTNotes: (Same as: Pepcid) No Longer Active 07/22/2018 [facility] Lisinopril 40 mg, 2 tab, Route: PO, Drug form: TAB, Daily, Dosing Weight 115.938, kg, Priority: NOW, Start date: 07/21/18 19:52:00 CDT, Duration: 30 day, Stop date: 08/20/18 9:00:00 CDTNotes: (Same as: Prinivil, Zestril) No Longer Active 07/22/2018 [facility] Dilaudid 0.5 mg, 0.5 mL, Route: IVP, Drug form: INJ, Q2H, Dosing Weight 115.938, kg, PRN Pain Score 7-10, Start date: 07/21/18 18:00:00 CDT, Duration: 30 day, Stop date: 08/20/18 17:59:00 CDTNotes: Same as: Dilaudid No Longer Active 07/21/2018 [facility] Zosyn 3.375 gm, Route: IVPB, ABXQ8H, Dosing Weight 115.938, kg, CrCl >=20 ml/min infuse over 4 hours, Start date: 07/21/18 15:00:00 CDT, Duration: 1 day, Stop date: 07/22/18 7:00:00 CDT, ABX Indication: Surgical ProphylaxisNotes: (Same as: Zosyn) Dosing based on Piperacillin component MEDICATION WASTE Product Size: 3375 mg Product Wasted: ___ mg No Longer Active 07/21/2018 [facility] Acetaminophen 21.7 MG/ML / Hydrocodone Bitartrate 0.5 MG/ML Oral Solution 15 mL, Route: PO, Drug Form: SOLN, Dosing Weight 115.938, kg, Q4H, PRN Pain Score 4-6, Start date: 07/21/18 14:47:00 CDT, Duration: 30 day, Stop date: 08/20/18 14:46:00 CDTNotes: Do not exceed 4gm/day of acetaminophen. (Same as: [facility] 325/7.5) No Longer Active 07/21/2018 [facility] Ondansetron 4 mg, 2 mL, Route: IVP, Drug form: INJ, Q12H, Dosing Weight 115.938, kg, PRN Nausea & Vomiting, Start date: 07/21/18 14:47:00 CDT, Duration: 30 day, Stop date: 08/20/18 14:46:00 CDTNotes: (Same as: Gagan) MEDICATION WASTE Product Size: 4 mg Product Wasted: ___ mg No Longer Active 07/21/2018 [facility] Calcium Chloride 0.0014 MEQ/ML / Potassium Chloride 0.004 MEQ/ML / Sodium Chloride 0.103 MEQ/ML / Sodium Lactate 0.028 MEQ/ML Injectable Solution 1,000 mL, Rate: 125 ml/hr, Infuse over: 8 hr, Route: IV, Dosing Weight 115.938 kg, Total Volume: 1,000, Start date: 07/21/18 14:47:00 CDT, Duration: 30 day, Stop date: 08/20/18 14:46:00 CDT, 2.4, m2 No Longer Active 07/21/2018 [facility] glycopyrrolate (ANES) Route: IV, Drug form: INJ, ONCE, Stop date: 07/21/18 14:17:00 CDT Inactive 07/21/2018 [facility] neostigmine (ANES) Route: IV, Drug form: INJ, ONCE, Stop date: 07/21/18 14:17:00 CDT Inactive 07/21/2018 [facility] Ondansetron 4 mg, Route: IVP, ONCE, Dosing Weight 115.938, kg, PRN Nausea & Vomiting, Start date: 07/21/18 13:38:00 CDT Inactive 07/21/2018 [facility] Flumazenil 0.2 mg, Route: IVP, PRN, Dosing Weight 115.938, kg, PRN Benzodiazepine Reversal, Initial dose, Start date: 07/21/18 13:38:00 CDT, Duration: 30 day, Stop date: 08/20/18 13:37:00 CDT Inactive 07/21/2018 [facility] Naloxone 0.4 mg, Route: IVP, Q2MIN, Dosing Weight 115.938, kg, PRN Narcotic Reversal, Start date: 07/21/18 13:38:00 CDT, Duration: 8 doses or times, Stop date: Limited # of times Inactive 07/21/2018 [facility] Hydromorphone 0.5 mg, Route: IVP, Q5Min, Dosing Weight 115.938, kg, PRN Pain Score 7-10, Start date: 07/21/18 13:38:00 CDT, Duration: 4 doses or times, Stop date: Limited # of times Inactive 07/21/2018 [facility] Fentanyl 25 microgram, Route: IVP, Q5Min, Dosing Weight 115.938, kg, PRN Pain Score 4-6, Priority: Routine, Start date: 07/21/18 13:38:00 CDT, Duration: 4 doses or times, Stop date: Limited # of times Inactive 07/21/2018 [facility] phenylephrine (ANES) Route: IV, Drug form: INJ, ONCE, Stop date: 07/21/18 13:13:00 CDT Inactive 07/21/2018 [facility] metoprolol (ANES) Route: IV, Drug form: INJ, ONCE, Stop date: 07/21/18 11:43:00 CDT Inactive 07/21/2018 [facility] ceFAZolin (ANES) Route: IV, Drug form: INJ, ONCE, Stop date: 07/21/18 11:33:00 CDT Inactive 07/21/2018 [facility] dexamethasone (ANES) Route: IV, Drug form: INJ, ONCE, Stop date: 07/21/18 11:33:00 CDT Inactive 07/21/2018 [facility] fentaNYL (ANES) Route: IV, Drug form: INJ, ONCE, Stop date: 07/21/18 11:22:00 CDT Inactive 07/21/2018 [facility] propofol (ANES) Route: IV, Drug form: INJ, ONCE, Stop date: 07/21/18 11:22:00 CDT Inactive 07/21/2018 [facility] rocuronium (ANES) Route: IV, Drug form: INJ, ONCE, Stop date: 07/21/18 11:22:00 CDT Inactive 07/21/2018 [facility] midazolam (ANES) Route: IV, Drug form: SOLN, ONCE, Stop date: 07/21/18 11:22:00 CDT Inactive 07/21/2018 [facility] Lactated Ringers Injection IV (ANES) 1000 mL Route: IV, Total Volume: 1,000, Start date: 07/21/18 10:10:00 CDT, Stop date: 07/21/18 11:10:00 CDT Inactive 07/21/2018 [facility] 72 HR Scopolamine 0.0139 MG/HR Transdermal Patch 1 patch, Route: TOP, Drug Form: ERFILM, Dosing Weight 115.938, kg, ONCE, Start date: 07/21/18 10:10:00 CDT, Stop date: 07/21/18 10:10:00 CDT Inactive 07/21/2018 [facility] Calcium Chloride 0.0014 MEQ/ML / Potassium Chloride 0.004 MEQ/ML / Sodium Chloride 0.103 MEQ/ML / Sodium Lactate 0.028 MEQ/ML Injectable Solution 1,000 mL, Rate: 25 ml/hr, Infuse over: 40 hr, Route: IV, Dosing Weight 115.938 kg, Total Volume: 1,000, Start date: 07/21/18 10:09:00 CDT, Duration: 30 day, Stop date: 08/20/18 10:08:00 CDT, 2.4, m2 Inactive 07/21/2018 [facility] Nexium PO, Daily, 0 Refill(s) Active 07/20/2018 [facility] lisinopril 40 mg oral tablet 40 mg=1 tab, PO, Daily, 0 Refill(s) Active 07/20/2018 [facility] Atenolol 25 MG Oral Tablet 25 mg=1 tab, PO, Daily, 0 Refill(s) Active 07/20/2018 [facility] Allergies, Adverse Reactions, Alerts Substance Category Reaction Severity Reaction type Status Date Reported Comments Source No Known Medication Allergies Assertion Drug allergy [facility] Immunizations No Data Provided for This Section Results Order Name Results Value Reference Range Date Interpretation Comments Source CHEM PANEL Calcium Lvl 8.4 8.5 - 10.5 07/24/2018 [facility] CHEM PANEL Total Protein 6.8 6.4 - 8.4 07/24/2018 [facility] CHEM PANEL Albumin Lvl 2.3 3.5 - 5.0 07/24/2018 [facility] CHEM PANEL eGFR 87 07/24/2018 Result [...] PANEL AGAP 11.0 10.0 - 20.0 07/24/2018 [facility] CHEM PANEL B/C Ratio 19 6 - 25 07/24/2018 [facility] CHEM PANEL A/G Ratio 0.5 0.7 - 1.6 07/24/2018 [facility] CHEM PANEL ALT 88 0 - 65 07/24/2018 [facility] CHEM PANEL AST 25 0 - 37 07/24/2018 [facility] CHEM PANEL Alk Phos 96 39 - 136 07/24/2018 [facility] CHEM PANEL Bili Total 1.1 0.2 - 1.3 07/24/2018 [facility] CHEM PANEL Sodium Lvl 144 135 - 145 07/24/2018 [facility] CHEM PANEL Potassium Lvl 4.0 3.5 - 5.1 07/24/2018 [facility] CHEM PANEL BUN 18 7 - 22 07/24/2018 [facility] CHEM PANEL Creatinine Lvl 0.97 0.50 - 1.40 07/24/2018 [facility] CHEM PANEL Glucose Lvl 103 70 - 99 07/24/2018 [facility] CHEM PANEL Chloride Lvl 107 95 - 109 07/24/2018 [facility] CHEM PANEL CO2 30 24 - 32 07/24/2018 [facility] HEMATOLOGY MCHC 32.7 32.0 - 36.0 07/24/2018 [facility] HEMATOLOGY MCV 90.4 80.0 - 94.0 07/24/2018 [facility] HEMATOLOGY RDW 13.0 11.5 - 14.5 07/24/2018 [facility] HEMATOLOGY MCH 29.6 27.0 - 31.0 07/24/2018 [facility] HEMATOLOGY Hct 36.9 42.0 - 54.0 07/24/2018 [facility] HEMATOLOGY RBC 4.08 4.70 - 6.10 07/24/2018 [facility] HEMATOLOGY Hgb 12.1 14.0 - 18.0 07/24/2018 [facility] HEMATOLOGY MPV 8.9 7.4 - 10.4 07/24/2018 [facility] HEMATOLOGY Platelet 216 133 - 450 07/24/2018 [facility] HEMATOLOGY WBC 17.1 3.7 - 10.4 07/24/2018 [facility] CHEM PANEL eGFR 97 07/23/2018 Result [...] should be multiplied by the estimated BMI. [facility] CHEM PANEL A/G Ratio 0.6 0.7 - 1.6 07/23/2018 [facility] CHEM PANEL Globulin 4.3 2.7 - 4.2 07/23/2018 [facility] CHEM PANEL B/C Ratio 23 6 - 25 07/23/2018 [facility] CHEM PANEL AGAP 9.5 10.0 - 20.0 07/23/2018 [facility] CHEM PANEL Bili Total 1.1 0.2 - 1.3 07/23/2018 [facility] CHEM PANEL Alk Phos 104 39 - 136 07/23/2018 [facility] CHEM PANEL AST 31 0 - 37 07/23/2018 [facility] CHEM PANEL ALT 110 0 - 65 07/23/2018 [facility] CHEM PANEL Albumin Lvl 2.5 3.5 - 5.0 07/23/2018 [facility] CHEM PANEL Total Protein 6.8 6.4 - 8.4 07/23/2018 [facility] CHEM PANEL Calcium Lvl 8.3 8.5 - 10.5 07/23/2018 [facility] CHEM PANEL CO2 31 24 - 32 07/23/2018 [facility] CHEM PANEL Chloride Lvl 103 95 - 109 07/23/2018 [facility] CHEM PANEL Potassium Lvl 3.5 3.5 - 5.1 07/23/2018 [facility] CHEM PANEL Glucose Lvl 120 70 - 99 07/23/2018 [facility] CHEM PANEL Sodium Lvl 140 135 - 145 07/23/2018 [facility] CHEM PANEL Creatinine Lvl 0.84 0.50 - 1.40 07/23/2018 [facility] CHEM PANEL BUN 19 7 - 22 07/23/2018 [facility] HEMATOLOGY Eosinophils 0.2 0.0 - 4.0 07/23/2018 [facility] HEMATOLOGY Monocytes 5.8 2.0 - 12.0 07/23/2018 [facility] Segs 85.5 45.0 - 75.0 07/23/2018 [facility] Neutrophils # 16.6 1.5 - 8.1 07/23/2018 [facility] Lymphocytes 8.2 20.0 - 40.0 07/23/2018 [facility] Basophils # 0.1 0.0 - 0.2 07/23/2018 [facility] Basophils 0.3 0.0 - 1.0 07/23/2018 [facility] Monocytes # 1.1 0.0 - 0.8 07/23/2018 [facility] Lymphocytes # 1.6 1.0 - 5.5 07/23/2018 [facility] Hgb 12.7 14.0 - 18.0 07/23/2018 [facility] WBC 19.4 3.7 - 10.4 07/23/2018 [facility] Hct 38.3 42.0 - 54.0 07/23/2018 [facility] RBC 4.31 4.70 - 6.10 07/23/2018 [facility] MCH 29.5 27.0 - 31.0 07/23/2018 [facility] MCV 88.8 80.0 - 94.0 07/23/2018 [facility] MPV 8.5 7.4 - 10.4 07/23/2018 [facility] Platelet 193 133 - 450 07/23/2018 [facility] RDW 13.1 11.5 - 14.5 07/23/2018 [facility] MCHC 33.2 32.0 - 36.0 07/23/2018 [facility] CHEM PANEL eGFR 94 07/22/2018 Result [...] should be multiplied by the estimated BMI. [facility] CHEM PANEL AST 231 0 - 37 07/22/2018 [facility] CHEM PANEL Alk Phos 161 39 - 136 07/22/2018 [facility] CHEM PANEL Bili Total 1.5 0.2 - 1.3 07/22/2018 [facility] CHEM PANEL Calcium Lvl 8.1 8.5 - 10.5 07/22/2018 [facility] CHEM PANEL Total Protein 7.2 6.4 - 8.4 07/22/2018 [facility] CHEM PANEL Albumin Lvl 3.2 3.5 - 5.0 07/22/2018 [facility] CHEM PANEL Creatinine Lvl 0.91 0.50 - 1.40 07/22/2018 [facility] CHEM PANEL Sodium Lvl 140 135 - 145 07/22/2018 [facility] CHEM PANEL Potassium Lvl 3.7 3.5 - 5.1 07/22/2018 [facility] CHEM PANEL Chloride Lvl 103 95 - 109 07/22/2018 [facility] CHEM PANEL CO2 28 24 - 32 07/22/2018 [facility] CHEM PANEL Glucose Lvl 135 70 - 99 07/22/2018 [facility] CHEM PANEL BUN 11 7 - 22 07/22/2018 [facility] CHEM PANEL ALT 295 0 - 65 07/22/2018 [facility] CHEM PANEL A/G Ratio 0.8 0.7 - 1.6 07/22/2018 [facility] CHEM PANEL AGAP 12.7 10.0 - 20.0 07/22/2018 [facility] CHEM PANEL B/C Ratio 12 6 - 25 07/22/2018 [facility] CHEM PANEL Globulin 4.0 2.7 - 4.2 07/22/2018 [facility] HEMATOLOGY Monocytes # 1.1 0.0 - 0.8 07/22/2018 [facility] Lymphocytes # 1.6 1.0 - 5.5 07/22/2018 [facility] Segs 83.7 45.0 - 75.0 07/22/2018 [facility] Lymphocytes 9.6 20.0 - 40.0 07/22/2018 [facility] Basophils 0.1 0.0 - 1.0 07/22/2018 [facility] Neutrophils # 14.1 1.5 - 8.1 07/22/2018 [facility] Monocytes 6.6 2.0 - 12.0 07/22/2018 [facility] MCHC 33.1 32.0 - 36.0 07/22/2018 [facility] RDW 12.9 11.5 - 14.5 07/22/2018 [facility] MPV 8.8 7.4 - 10.4 07/22/2018 [facility] Platelet 234 133 - 450 07/22/2018 [facility] MCV 88.8 80.0 - 94.0 07/22/2018 [facility] Hgb 14.5 14.0 - 18.0 07/22/2018 [facility] RBC 4.94 4.70 - 6.10 07/22/2018 [facility] WBC 16.8 3.7 - 10.4 07/22/2018 [facility] Hct 43.9 42.0 - 54.0 07/22/2018 [facility] MCH 29.4 27.0 - 31.0 07/22/2018 [facility] Pathology Reports No Data Provided for [...] and small left pleural effusion. 08/17/2018 [facility] Chest 2 views DX Clinical [...] lobe infiltrate and small left effusion. SL: [id number] 07/24/2018 [facility] Abdomen AP DX Clinical Indication: - [...] gallbladder fossa. IMPRESSION: 1. Unremarkable abdomen. SL: [id number] 07/24/2018 [facility] RUQ US EXAM: US ABDOMEN RIGHT [...] disease. No acute intracranial abnormality 12/18/2016 [facility] Spine lumbar wo contrast MRI MRI LUMBAR SPINE WITHOUT CONTRAST 03/04/2016 8:12 AM IUSS ACOUSTIC ANALYST COMPARISON: 08/08/2014 radiograph exam. TECHNIQUE: Sagittal T1, [...] to Dr. Aaron on 03/04/2016 11:42 AM IUSS ACOUSTIC ANALYST. 03/04/2016 MIGUELITO Sue Sacroiliac joints series DX [...] Comments Source Systolic (mm Hg) 151 07/24/2018 [facility] Diastolic (mm Hg) 83 07/24/2018 [facility] Heart Rate 105 07/24/2018 [facility] Temperature Oral (F) 98.8 F 07/24/2018 [facility] Respitory Rate 18 07/24/2018 [facility] Respitory Rate 16 07/24/2018 [facility] Respitory Rate 18 07/24/2018 [facility] Temperature Oral (F) 99.3 F 07/24/2018 [facility] Heart Rate 112 07/24/2018 [facility] Systolic (mm Hg) 146 07/24/2018 [facility] Diastolic (mm Hg) 90 07/24/2018 [facility] Systolic (mm Hg) 139 07/24/2018 [facility] Diastolic (mm Hg) 84 07/24/2018 [facility] Heart Rate 120 07/24/2018 [facility] Temperature Oral (F) 99.8 F 07/24/2018 [facility] BMI Calculated 37.75 07/20/2018 [facility] Weight 115.938 07/20/2018 [facility] Height 175.26 cm 07/20/2018 [facility] Encounters Location Location Details Encounter Type Encounter Number Reason For Visit Attending Provider ADM Date DC Date Status Source [facility] [place] [facility] [id number] Madhuri Gaston 08/08/2014 08/09/2014 [facility] [place] [facility] [place] [facility] [id number] Robert Aaron 03/04/2016 03/05/2016 [facility] [place] [facility] [place] [facility] [id number] Adelfo Luna 12/18/2016 12/19/2016 [facility] [place] [facility] [place] [facility] [id number] Vianney Desai 07/19/2018 07/20/2018 [facility] [place] [facility] Observation [id number] Anuj Vera 07/21/2018 07/24/2018 [facility] [place] [facility] [id number] Robert Aaron 08/17/2018 08/18/2018 [facility] Procedures No Data Provided for This Section Assessment and Plan Assessment and Plan Date Source Extracted from:Title: Surgery Staff Note Author: Anuj Vera DO Date: 07/24/18 Discharge Summary [facility] Completed: Jul, 09:59 by Anuj Vera DO [...] MD on 07/24/2018 03:31 CDT Encounter info: [id number], [facility], Observation, 07/21/2018 - * Final Report [...] gallbladder fossa. IMPRESSION: 1. Unremarkable abdomen. SL: [id number] [place] - - Read by: Tavon [...] DO Date: 07/23/18 Progress Note - Daily [facility] Completed: Wednesday, JUL 23, 2018, 13:01 by [...]
[2018-10-03] MEDS: SODIUM CHLORIDE 0.9% 1000ML 1,000 ML IV SCH ×2 (14:04→18:30)
[2018-10-03] MEDS ORDERED: MORPHINE SULFATE INJ 4 MG/ML INJ 1ML IV ONE (14:45)
--- NOTE | 2018-10-03 17:15 | NUR ---
Received patient from ER via stretcher. AAOX4 to time, person, place, situation. Respirations even and unlabored. right upper quadrant drain draining small amount of serosanguineous drainage. Oriented patient to room. Instructed to use call light for assistance. Voiced understanding. Will continue to monitor.
[2018-10-03 17:23] VITALS: BP 147/75
[2018-10-03 17:29] VITALS: BP 147/75
[2018-10-03 17:32] VITALS: BP 147/75
[2018-10-03] MEDS: HYDROMORPHONE 2MG/ML 2 MG/ML ML IV PRN ×2 (18:35→21:35)
--- NOTE | 2018-10-03 19:15 | NUR ---
Report given to oncoming nurse of patient's status. Resting in bed, at bedside. NO s/s of acute distress noted.
[2018-10-03 19:24] VITALS: BP 147/75
[2018-10-03 20:00] VITALS: BP 155/94
[2018-10-04] VITALS (9 sets, daily range): BP systolic 148–186; BP diastolic 70–106
[2018-10-04] MEDS: HYDROMORPHONE 2MG/ML 2 MG/ML ML IV PRN ×7 (00:40→20:46)
[2018-10-04 05:05] LABS: BASOPHILS % 0.4 % (0.0-1.0); EOSINOPHILS # (AUTO) 0.3 (0.0-0.4); HEMATOCRIT 39.3 % (38.2-49.6); HEMOGLOBIN 13.1 g/dL (14.0-18.0); LYMPHOCYTES # (AUTO) 3.5 (1.0-3.2); LYMPHOCYTES % 33.7 % (18.0-39.1); MEAN CORPUSCULAR HEMOGLOBIN 28.7 pg (28-32); MEAN CORPUSCULAR HGB CONC 33.3 g/dL (31-35); MONOCYTES # (AUTO) 0.8 (0.2-0.8); MONOCYTES % 7.7 % (4.4-11.3); NEUTROPHILS # (AUTO) 5.7 (2.1-6.9); NEUTROPHILS % 54.8 % (38.7-80.0); PLATELET COUNT 259 x10e3/uL (140-360); RED BLOOD COUNT 4.57 x10e6/uL (4.3-5.7); RED CELL DISTRIBUTION WIDTH 12.9 % (11.7-14.4)
[2018-10-04 05:34] LABS: ANION GAP 12.1 mmol/L (8-16); BLOOD UREA NITROGEN 12 mg/dL (7-26); BUN/CREATININE RATIO 15 (6-25); CALCIUM 8.7 mg/dL (8.4-10.2); CARBON DIOXIDE 28 mmol/L (22-29); CHLORIDE 102 mmol/L (98-107); EST GLOMERULAR FILTRATION RATE > 60 ML/MIN (60-); GLUCOSE 110 mg/dL (74-118); POTASSIUM 4.1 mmol/L (3.5-5.1); SODIUM 138 mmol/L (136-145)
--- NOTE | 2018-10-04 07:20 | NUR ---
REPORT GIVEN TO VELMA MUÑOZ AT THIS TIME. PT RESTING IN BED WITH CALL LIGHT IN REACH.
[2018-10-04] MEDS: SODIUM CHLORIDE 0.9% 1000ML 1,000 ML IV SCH (07:21)
[2018-10-04] MEDS: PANTOPRAZOLE SOD 40 MG TABEC PO SCH (07:44)
[2018-10-04] MEDS: ATENOLOL 50 MG TAB PO SCH (07:45)
[2018-10-04] MEDS ORDERED: LISINOPRIL 10 MG TAB PO SCH (09:00)
[2018-10-04] MEDS ORDERED: LISINOPRIL 20 MG TAB PO SCH (09:00)
--- NOTE | 2018-10-04 11:00 | NUR ---
aware of BP. No new orders
--- NOTE | 2018-10-04 11:50 | NUR ---
HERE 10 DAYS AGO
--- NOTE | 2018-10-04 12:10 | NUR ---
and radiology nurse at bedside.
--- NOTE | 2018-10-04 12:20 | NUR ---
Right upper quadrant drain removed by . Dressing in place clean, dry, and intact
--- NOTE | 2018-10-04 12:25 | NUR ---
BP 186/106. Paged Dr.S. De La Paz to notify of BP
--- NOTE | 2018-10-04 13:00 | NUR ---
Patient refuses IV fluids . States " I am drinking enough fluids"
--- NOTE | 2018-10-04 13:05 | NUR ---
Patient resting in bed, lights off, using relaxation techniques for headache. BP 156/87 P68
[2018-10-04] MEDS ORDERED: ACETAMINOPHEN 325 MG TAB PO PRN (13:45)
--- NOTE | 2018-10-04 14:37 | NUR ---
Nutrition Screen Note RD Recommendation for Physician: -Continue diet as ordered Plan of Care: RD following, monitoring for tolerance and adequacy Nutrition reason for involvement: Nutrition Risk Trigger MST Primary Diagnose(s): abdominal pain PMH: HTN, GERD Ht: 69in Wt: 252.5lb BMI: 37.3kg/m2 IBW: 160lb +/- 10% RD Assessment: (10/04) Chart reviewed. Labs and meds reviewed. 57yo M, who was admitted for abdominal pain. Visited pt in the room. 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 No complains of nausea or vomiting. LBM 10/03. Pt denied any chewing or swallowing difficulty. Weight has been stable. Will continue to monitor and follow. Current Diet: cardiac diet Malnutrition Evaluation (10/04/2018) The patient does not meet criteria for a specified degree of malnutrition at this time. Will re-evaluate at follow-up as appropriate. Diet Education Needs Assessment: Diet education not indicated. Nutrition Care Level: low Signed: Amaya Chan, MS, RD, LD
--- NOTE | 2018-10-04 15:35 | NUR ---
Visit made by the Spiritual Care Department Pastoral Visitor, Ida Vizcarra. PV provided pastoral presence, hospitality, and supportive listening. Pastoral Visitor informed pt/family of the scope of [facility] Services and availability. MATI GHOTRA Plasterer Apprentice Spiritual Care Department O: [phone] Pager: [phone] ([phone] calling from)
--- NOTE | 2018-10-04 19:00 | NUR ---
Patient visited in room during nursing rounds. Patient alert and oriented x3. Ambulatory in room prn. Pt eating dinner with at bedside. S/P drain removed on RUQ abdomen. Dressing (gauze and tegaderm) on RUQ abd clean, dry and intact. Pt with intermittent abd (RUQ) pain. Call harrison within reach. Will monitor pt closely.
--- NOTE | 2018-10-04 19:02 | NUR ---
Report given to oncoming nurse of patient's status. Resting in bed. No s/s of acute distress noted. Side rails upx2, call light within reach.
--- NOTE | 2018-10-04 19:05 | NUR ---
Patient refused IVF (NS at 75ml/hr). Pt drinking water adequately.
[2018-10-05] VITALS: BP 134/70
[2018-10-05] MEDS: HYDROMORPHONE 2MG/ML 2 MG/ML ML IV PRN ×3 (01:07→08:30)
[2018-10-05 04:00] VITALS: BP 141/80
[2018-10-05] MEDS: SODIUM CHLORIDE 0.9% 1000ML 1,000 ML IV SCH (04:40)
[2018-10-05] MEDS: PANTOPRAZOLE SOD 40 MG TABEC PO SCH (06:37)
--- NOTE | 2018-10-05 06:45 | NUR ---
rounded with director trade nurse, patient aware of change and in no distress. call harrison within reach and bed in lowest position.
[2018-10-05 07:43] VITALS: BP 138/81
[2018-10-05 08:30] VITALS: BP 138/81
[2018-10-05] MEDS: ATENOLOL 50 MG TAB PO SCH (08:30)
[2018-10-05] MEDS ORDERED: LISINOPRIL 20 MG TAB PO SCH (09:00)
[2018-10-05] MEDS ORDERED: MAGNESIUM HYDROXIDE 30 ML UDC PO ONE (11:00)
[2018-10-05 11:15] VITALS: BP 146/84
[2018-10-05] MEDS ORDERED: LISINOPRIL10 MG PO (11:37)
[2018-10-05] MEDS ORDERED: NORCO 5-325 TA1 EACH PO (11:38)
--- NOTE | 2018-10-05 11:50 | NUR ---
patient alert and oriented, discharge instructions given at this time, patient verbalized understanding. IV discontinued, catheter in tact and small bandage applied. Patient to ambulate to personal auto for patient to return home.
== END 2018-10-05 11:50 | disposition home or self-care (01) ==
LOC: ER 09:40 → ERHOLD 12:40 → MED/SURG2 17:20
DX: R10.11 Right upper quadrant pain (principal); Z90.49 Acquired absence of other specified parts of digestive tract; Z98.890 Other specified postprocedural states
CPT/HCPCS: 36415 ×2; 74470; 76705; 80048; 80053; 81001; 82150; 82948; 83690; 85025 ×2; 93005; 96361; 99284; G0378 ×3; J1170 ×3; J1885; J2270; J7030 ×2; S0164 ×2; 96360